=== PATIENT | female | born 1950 | race Caucasian/White ===

== ENCOUNTER 2017-10-20 10:42 | Outpatient (CLI) | payer MEDICARE ==
--- NOTE | 2017-10-22 15:44 | MMO ---
BILATERAL DIGITAL SCREENING MAMMOGRAPHY: History: 67-year-old female presents for digital screening mammography. No prior mammograms would be found so this is a baseline study. This study is interpreted with the assistance of computer aided detection. FINDINGS: Scattered areas of fibroglandular density are noted bilaterally. There are typically benign calcifica tions in both breasts. No direct or indirect evidence of malignancy. IMPRESSION: 1. BIRADS category 2 - benign findings. Continue routine screening. POS: SHEYLA
== END 2017-10-20 10:43 | disposition home or self-care (01) ==
LOC: SCSMAMMO 10:42
PROVIDERS: ATTEND Internal Medicine
DX: Z12.31 Encounter for screening mammogram for malignant neoplasm of breast (principal)
CPT/HCPCS: 77067

== ENCOUNTER 2018-08-04 18:04 | Inpatient (IN) | payer MEDICARE ==
[2018-08-04] MEDS ORDERED: Diltiazem 125 MG/25 ML ONE (19:15)
[2018-08-04 19:39] LABS: Acetaminophen Less than 6.0 mcg/mL (10.0-30.0); Alcohol Less than 10 mg/dL (Less than 10); Salicylate Less than 8.0 mg/dL (15.0-30.0)
--- NOTE | 2018-08-04 21:26 | PDOC.FPRHP ---
- History of Present Illness Chief Complaint: nausea History of Present Illness: 67yo F with pmh of HTN and "heart rate issues" presents to ED with 1 week hx of nausea and vomiting. Pt was found in [facility] ED to have proctitis and pyelonephritis by Abdominal CT and transferred to us. Pt reports that she has had hard stools and difficulty with BMs though her last ones were on Friday and Friday. She denies dysuria or polyuria. Reports associated decreased PO intake and that she has not tolerated any home medications for several days now. No upper or lower GIB, no fever/chills ED Course: Vancomycin, Rocephin, Levaquin, diltiazem - Allergies/Adverse Reactions Allergies Allergy/AdvReac Type Severity Reaction Status Date / Time No Known Allergies Allergy Unverified 08/04/18 22:45 - Home Medications Medication Instructions Recorded Confirmed Type Amlodipine [Norvasc] 10 mg PO DAILY 08/05/18 08/05/18 History Aspirin [Ecotrin] 81 mg PO DAILY 08/05/18 08/05/18 History Lisinopril [Zestril] 5 mg PO BID 08/05/18 08/05/18 History Metoprolol Succinate [Toprol XL] 100 mg PO BID 08/05/18 08/05/18 History Potassium Chloride [Klor-Con 10] 10 meq PO BID 08/05/18 08/05/18 History Sertraline HCl 50 mg PO DAILY 08/05/18 08/05/18 History - History PMHx: HTN, "heart rate issue" (takes metoprolol), depression/anxiety PSHx: none FHx: CAD in parents Social: 20 pack year smoking hx, drinks alcohol socially, denies daily use ( though ED report shows daily drinking), denies drugs - Review of Systems General: reports: fatigue. denies: fever/chills Eyes: denies: eye pain, vision changes ENT: denies: nasal congestion, rhinorrhea Respiratory: denies: congestion, shortness of breath Cardiovascular: denies: chest pain, palpitation Gastrointestinal: reports: nausea, vomiting Genitourinary: denies: incontinence, dysuria, polyuria Skin: denies: rashes, lesions Musculoskeletal: denies: pain, tenderness Neurological: denies: syncope, seizure Psychological: denies: anxiety, depression - Vital signs BP: [163/107] HR: [110] RR: [20] Tmax: [98.1] Pox: [95]% on [ra] Wt: [45kg] - Physical Exam Constitutional: NAD, awake, alert and oriented HEENT: normocephalic and atraumatic, EOMI, conjunctiva clear, grossly normal vision, grossly normal hearing Neck: supple, no JVD Chest: no-tender to palpation Heart: normal S1/S2, other (tachycardia, regular rhythm) Lungs: CTAB, no respiratory distress Abdomen: soft, non-tender, bowel sounds present Musculoskeletal: normal structure, normal tone Neurological: no focal deficit, normal sensation Skin: no rash/lesions, good turgor Heme/Lymphatic: no unusual bruising or bleeding, no purpura Psychiatric: normal mood and affect, good judgment and insight FMR H&P: Results - Labs Result Diagrams: 08/05/18 03:58 08/05/18 03:58 Lab results: Ammonia 25 umol/L (18-72) 08/04/18 19:02 FMR H&P: A/P - Problem List (1) Sepsis Current Visit: Yes Status: Acute Code(s): A41.9 - SEPSIS, UNSPECIFIED ORGANISM (2) Proctitis Current Visit: Yes Status: Acute Code(s): K62.89 - OTHER SPECIFIED DISEASES OF ANUS AND RECTUM (3) Pyelonephritis Current Visit: Yes Status: Acute Code(s): N12 - TUBULO-INTERSTITIAL NEPHRITIS, NOT SPCF ACUTE OR CHRONIC (4) SVT (supraventricular tachycardia) Current Visit: Yes Status: Acute Code(s): I47.1 - SUPRAVENTRICULAR TACHYCARDIA (5) HTN (hypertension) Current Visit: Yes Status: Acute Code(s): I10 - ESSENTIAL (PRIMARY) HYPERTENSION (6) Depressed Current Visit: Yes Status: Acute Code(s): F32.9 - MAJOR DEPRESSIVE DISORDER , SINGLE EPISODE, UNSPECIFIED - Plan Sepsis 2/2 pyelonephritis and proctitis A- CT imaging showing evidence of pyelo and proctitis with pt meeting sirs criteria though HR can be attributed for known hx of tachycardia. P- vanc and levaquin - admit tele - f/u on Cultures pending - monitor vitals for signs of decompensation. - LR maintenance fluids SVT A- pt has HR ranging from 80-130's in ED and is s/p dilt. She is currently asymptomatic with no cp or sob. Home metoprolol dose has not been tolerated for days now 2/2 vomiting P- restart home metoprolol - PRN labetalol for pulse >120 HTN A- SBPs ranging from 110s to 140s in ED. P- restarted home metoprolol, will hold other home meds as of now until BPs stabilize to reserve freedom for Labetalol use if need be. CKD4 - will renally dose medications, appears stable from previous labs. Depression/Anxiety - home sertaline hypokalemia - pt has had one time dose of 40meq - restart home K+ Possible EtOH dependence A- pt denied daily drinking but ED report documented daily drinking P- ASE protocol Diet: HH PPx: heparin SC CODE: DNI Dispo: inpatient, telemetry FMR H&P: Upper Level - Pertinent history 67 yo WF PMH SVT and HTN. Presents as transfer from [place] [facility] with a CC of constipation for 1 week and intractable nausea and vomiting for 3 days. Reports rectal pain. Denies fever, chills, dysuria, flank pain, or palpitations. States she has not taken her beta antonio for 3-4 days. ER: Labs, EKG, CT-abdomen/pelvis w/o contrast, rocephin, vanc, levaquin, NS 2L, metoprolol x2, diltiazem x1, blood and urine cultures at [facility] - Pertinent findings Vitals: Pulse 130, otherwise WNL GEN: NAD CV: tachydardic regular Pulm: CTA-B Abdomen: no CVA tenderness EKG: Sinus/supraventricular tachcyardia. P-waves difficult to appreciate but present. CT-abdomen/pelvis: air noted in bladder, right ureter, and right renal pelvis. rectal inflammation. Labs: WBC 14, lactic acid 3.1-> 1, UA 4+ bacteria, >300 protein, WBC 11-20. - Plan Date/Time: 08/04/182124 I, Bo Estes MD, have evaluated this patient and agree with findings/plan as outlined by sports broadcasting internship resident. Pertinent changes/additions are listed here. 1. Sepsis 2/2 pyelonephritis and proctitis: continue vanc and levaquin. will monitor on telemetry. I believe her pulses is related to her history of SVT and medication non-compliance this week. Cultures pending, monitor vitals for signs of decompensation. 2. SVT: restarted home metoprolol. PRN labetalol available for pulse >120 3. CKD4: renally dose medications, appears stable from previous labs. 4. See sports broadcasting internship note for management of chronic medical conditions. 5. Diet: HH 6. PPx: heparin SC 7. CODE: DNI Dispo: inpatient, telemetry, >[address] Russell. Addendum - Attending - Attending Attestation Date/Time: 08/05/18 [id number] I personally evaluated the patient and discussed the management with Dr. Prescott. I agree with the History, Examination, Assessment and Plan documented above with any addition or exceptions noted below.
[2018-08-04] MEDS ORDERED: Acetaminophen 325 MG TAB PO PRN (22:42)
[2018-08-04] MEDS ORDERED: Senokot 8.6 MG TAB PO SCH (22:42)
[2018-08-04] MEDS ORDERED: Polyethylene Glycol 3350 17 GM Packet PO PRN (22:42)
[2018-08-04 22:57] LABS: Hemoglobin A1c 4.9 % (4.0-6.0)
[2018-08-04] MEDS: Lactated Ringer's 1,000 ML IV SCH (23:35)
[2018-08-04] MEDS ORDERED: Ondansetron ODT 4 MG TAB ONE (23:36)
[2018-08-04] MEDS: Ondansetron ODT 4 MG TAB PO PRN (23:38)
[2018-08-05] MEDS: Labetalol HCl 100 MG/20 ML VIAL SLOW IVP PRN (00:46)
[2018-08-05 04:11] LABS: #Lymphocytes 1.2 thou/uL (1.20-3.40); #Monocytes 0.8 thou/uL (0.11-0.59); #Neutrophils 11.7 thou/uL (1.40-6.50); %Basophils 0.1 % (0.0-1.0); %Eosinophils 0.1 % (0.0-10.0); %Lymphocytes 8.7 % (21.0-51.0); %Monocytes 6.1 % (0.0-10.0); Mean Corpuscular Hemoglobin 35.5 pg (27.0-31.0); Mean Platelet Volume 7.7 fL (7.4-10.4); Platelet Count 155 thou/uL (130-400); RBC Distribution Width 13.4 % (11.5-14.5); Red Blood Cell (RBC) Count 3.94 mill/uL (4.20-5.40); White Blood Cell (WBC) Count 13.7 thou/uL (4.8-10.8)
[2018-08-05 04:26] LABS: Anion Gap 17 mmol/L (10-20); BUN (Urea Nitrogen) 26 mg/dL (9.8-20.1); Calc. Creatinine Clearance 20 mL/min (70-130); Calcium 8.8 mg/dL (7.8-10.44); Carbon Dioxide 17 mmol/L (23-31); Chloride 107 mmol/L (98-107); Estimated GFR-MDRD 26; Glucose 121 mg/dL (80-115); Potassium 3.4 mmol/L (3.5-5.1); Sodium 138 mmol/L (136-145)
--- NOTE | 2018-08-05 06:28 | PDOC.FM ---
- Subjective Subjective: Ms. Noel says she feels weak and not well. Denies dysuria or any pain. - Objective MAR Reviewed: Yes Vital Signs & Weight: Vital Signs (12 hours) Pulse BP 08/05/18 00:46 135 H 178/102 H Weight Weight 45.8 kg Result Diagrams: 08/05/18 03:58 08/05/18 03:58 Phys Exam - Physical Examination Respiratory: no wheezing, clear to auscultation bilateral sinus tachycardia Gastrointestinal: soft, non-tender, positive bowel sounds Musculoskeletal: no edema Neurological: non-focal Skin: normal turgor Dx/Plan (1) Sepsis Code(s): A41.9 - SEPSIS, UNSPECIFIED ORGANISM Status: Acute (2) HTN (hypertension) Code(s): I10 - ESSENTIAL (PRIMARY) HYPERTENSION Status: Acute (3) Proctitis Code(s): K62.89 - OTHER SPECIFIED DISEASES OF ANUS AND RECTUM Status: Acute (4) Pyelonephritis Code(s): N12 - TUBULO-INTERSTITIAL NEPHRITIS, NOT SPCF ACUTE OR CHRONIC Status: Acute (5) SVT (supraventricular tachycardia) Code(s): I47.1 - SUPRAVENTRICULAR TACHYCARDIA Status: Acute (6) Depressed Code(s): F32.9 - MAJOR DEPRESSIVE DISORDER, SINGLE EPISODE, UNSPECIFIED Status : Acute (7) CKD (chronic kidney disease) Code(s): N18.9 - CHRONIC KIDNEY DISEASE, UNSPECIFIED Status: Acute - Plan Plan: Sepsis 2/2 pyelonephritis and proctitis - CT imaging showing evidence of pyelo and proctitis with pt meeting sirs criteria through tachycardia and WBC. - Continue vanc and levaquin (3/) - f/u on Cultures pending from outside ED, NGTD - LR maintenance fluids @ 70 - Will consult urology today considering emphesematous cystitis and question of possible fistula SVT - tachycardia s/p dilt ED. pt was unable to tolerate home metoprolol 2/2 N/V - restart home metoprolol and then add as needed - PRN labetalol for pulse >120 HTN - SBPs currently 170s SBP - restarted home metoprolol, amlodipine, lisinopril this am CKD4 - will renally dose medications, appears stable from previous labs. Depression/Anxiety - continue home sertaline Hypokalemia - pt has had one time dose of 40meq, K+3.4 this am - restart home K+ Possible EtOH dependence - pt denied daily drinking but ED report documented daily drinking - ASE protocol Diet: HH PPx: heparin SC CODE: DNI Addendum - Attending - Attending Attestation Date/Time: 08/05/18 3490 I personally evaluated the patient and discussed the management with Dr. Pena. I agree with the History, Examination, Assessment and Plan documented above with any addition or exceptions noted below. The patient remains tachycardic but is asymtpomatic. We have restarted her metoprolol and will monitor for improvement. Urine output is low, will bolus fluids to see if this helps with the tachycardia. Cardiology is consulted. Can give prn labetolol or diltiazem as needed. Will also consult urology for possible cystoscopy. Continue IV antibiotics.
[2018-08-05] MEDS ORDERED: Aspirin Chewable 81 MG TAB ONE (09:39)
[2018-08-05] MEDS ORDERED: Heparin 1,000 UNITS/ML VIAL ONE (09:39)
[2018-08-05] MEDS ORDERED: Potassium Chloride 20 MEQ TAB ONE (09:39)
[2018-08-05] MEDS: Vancomycin HCl 500 MG in Sodium Chloride 0.9% 100 ML IVPB SCH (12:58)
[2018-08-05] MEDS: Lisinopril 5 MG TAB PO SCH ×2 (12:58→20:50)
[2018-08-05] MEDS: Amlodipine 10 MG TAB PO SCH (12:58)
[2018-08-05] MEDS: Heparin 5,000 UNITS/ML VIAL SC SCH ×3 (12:58→20:50)
[2018-08-05] MEDS: Aspirin 81 mg Enteric Coated Tablet PO SCH (12:58)
[2018-08-05] MEDS: Potassium Chloride 10 MEQ TAB PO SCH ×2 (12:59→20:51)
[2018-08-05] MEDS: Lactated Ringer's 1,000 ML IV SCH (13:47)
[2018-08-05] MEDS ORDERED: Metoprolol Tartrate 5 MG/5 ML VIAL IVP PRN (14:10)
--- NOTE | 2018-08-05 17:19 | EKG ---
Test Reason : Blood Pressure : / mmHG Vent. Rate : 100 BPM Atrial Rate : 681 BPM P-R Int : 000 ms QRS Dur : 066 ms QT Int : 314 ms P-R-T Axes : 000 021 -09 degrees QTc Int : 405 ms Supraventricular tachycardia and N Septal infarct , age undetermined cannot be excluded Abnormal ECG Confirmed by JERRI ARMSTRONG ([id number]) on 08/05/2018 5:18:24 PM Referred By: ANTONIETA Confirmed By:JERRI ARMSTRONG
--- NOTE | 2018-08-05 17:20 | EKG ---
Test Reason : Blood Pressure : / mmHG Vent. Rate : 143 BPM Atrial Rate : 170 BPM P-R Int : 000 ms QRS Dur : 064 ms QT Int : 294 ms P-R-T Axes : 000 034 -63 degrees QTc Int : 453 ms Supraventricular tachycardia Septal infarct , age undetermined Abnormal ECG Confirmed by JERRI ARMSTRONG ([id number]) on 08/05/2018 5:19:58 PM Referred By: ANTONIETA Confirmed By:JERRI ARMSTRONG
--- NOTE | 2018-08-05 18:19 | CON ---
DATE OF CONSULTATION: 08/05/2018 CONSULTING PHYSICIAN: Family Medicine. ROOM ATTENDANTS: Dr. Langston. 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 CHIEF COMPLAINT: I got really sick. HISTORY OF PRESENT ILLNESS: Ms. Noel is a 67-year-old white female, who was admitted to the Family Medicine service with a 1-week history of nausea, vomiting, and generalized feelings of malaise. She states the symptoms started about last Friday and initially she just felt bad and had some nausea. She thought that she may have a virus and stayed at home trying to take care of the problem herself. When the symptoms progressed and she became ill with vomiting and worsening feelings of malaise, she went to [facility], where she underwent imaging with abdominal CT and was found to have proctitis and emphysematous pyelitis. She was then transferred to [facility] for further treatment. She does report that she has been having hard stools and difficulty with bowel movements over the last weekend. She denies any dysuria, urgency, frequency, bladder pain, or history of recurrent urinary tract infections. She does have some incontinence and oftentimes wears Depends, especially at night, but reports no significant difficulty with urination. ALLERGIES: NONE. HOME MEDICATIONS: 1. Norvasc. 2. Aspirin. 3. Lisinopril. 4. Metoprolol. 5. Potassium chloride. 6. Sertraline. PAST MEDICAL HISTORY: 1. Hypertension. 2. Arrhythmias, unspecified. 3. Depression and anxiety. PAST SURGICAL HISTORY: None. FAMILY HISTORY: Significant for coronary artery disease in both of her parents. SOCIAL HISTORY: The patient has a 20 pack-year history of smoking. Drinks alcohol socially. Denies any illicit drug use. REVIEW OF SYSTEMS: A 12-point review of system was reviewed and otherwise negative other than what was reported in the HPI. PHYSICAL EXAMINATION: VITAL SIGNS: Temperature 97.2, pulse 141, respirations 17, blood pressure 156/85, and saturation 95% on room air. GENERAL: No apparent distress. Communicative and alert, appears older than stated age. Well nourished, well developed, relatively thin. HEENT: Normocephalic and atraumatic. Sclera are nonicteric. The patient is currently wearing sunglasses. Eyes otherwise normal. Moist mucous membranes. Trachea midline. CARDIOVASCULAR: Tachycardic with irregular rhythm. Normal S1 and S2. Symmetric pulses. CHEST: No increased work of breathing. Symmetric expansion of the lungs with some coarse upper airway sounds. Nonlabored breathing. ABDOMEN: Soft, nontender, and nondistended. Positive bowel sounds. No significant suprapubic tenderness although she does grimace slightly. No significant CVA tenderness. : Deferred at this time. EXTREMITIES: No clubbing, cyanosis, or edema. MUSCULOSKELETAL: No joint deformities or joint erythema noted. Full range of motion. NEUROLOGIC: Cranial nerves 2 through 12 grossly intact. No focal sensory or motor deficits identified. SKIN: Warm and dry. No rashes or lesions. Poor turgor. No significant pallor. PSYCHIATRIC: Alert and oriented x3. Appropriate mood and affect. LABORATORY DATA: On laboratory evaluation, the full set of labs in the [facility] system, which I have reviewed. Of note, the patient's white count is 13.7 with hemoglobin of 14, creatinine is currently 1.91. Urinalysis demonstrates 4+ bacteria, no squamous cells, 11 to 20 white cells, no red cells, trace leukocyte esterase. Urine culture preliminary is growing Escherichia coli and Klebsiella and enterobacter species. Final speciation and sensitivities are still pending. Blood cultures have no growth currently. CT scan from August 04 at [facility] demonstrates a large volume of gas in the urinary bladder as well as throughout the right renal collecting system and right ureter suggesting right-sided emphysematous pyelitis and cystitis without evidence of emphysematous pyelonephritis. There is no obvious fistula seen between the urinary bladder and the colon or vagina. There is a prior CT demonstrating gas in the bladder, but no gas in the collecting system. There is extensive new inflammatory changes around the rectum, which were not present on the prior CT scan suggestive of active proctitis. ASSESSMENT AND PLAN: A 67-year-old white female with emphysematous pyelitis and cystitis without evidence of emphysematous pyelonephritis and there is no evidence of hydronephrosis on imaging. There is no evidence of nephrolithiasis either. Given the absence of hydronephrosis and nontoxic appearance of the patient, I think the patient could be managed conservatively with IV antibiotics, but I would recommend maximal bladder drainage with a Rodriguez catheter. We will keep the Rodriguez catheter in place for at least 48 hours at which time we can repeat a CT scan. If there is significant clearance of gas at that time, the catheter can be removed. Otherwise, we will continue the Rodriguez catheter longer until she does have complete resolution of her infection. The exact etiology of this infection is probably due to recent constipation, which is a significant risk factor for urinary tract infections. The patient also has an arrhythmia currently, which has been exacerbated by her infection. This will be dealt separately by the Cardiology service at a separate time. I will continue to follow along with this patient but recommend broad-spectrum IV antibiotics until the patient has a final speciation at which time, we can taper antibiotics down more appropriately. She will probably require at least 14 days of antibiotics to completely eradicate the infection and prevent progression to worsened urinary infection. Summary. RECOMMENDATIONS: 1. Broad-spectrum IV antibiotics. 2. Rodriguez catheter drainage. 3. Repeat CT scan in 48 hours to evaluate for progression of infection or gas. 4. We will continue to follow and give recommendations. Job ID: [id number]
[2018-08-05] MEDS: Piperacillin/Tazobactam 2.25 GM in Sodium Chloride 0.9% 100 ML IVPB SCH (18:38)
[2018-08-05 19:22] LABS: ALT (SGPT) 7 U/L (8-55); AST (SGOT) 22 U/L (5-34); Albumin 3.1 g/dL (3.4-4.8); Alkaline Phosphatase 90 U/L (40-150); Bilirubin, Direct 0.3 mg/dL (0.1-0.3); Bilirubin, Total 0.7 mg/dL (0.2-1.2); Magnesium 1.1 mg/dL (1.6-2.6); Protein, Total 6.4 g/dL (6.0-8.3)
--- NOTE | 2018-08-05 19:28 | CON ---
DATE OF CONSULTATION: 08/05/2018 REASON FOR CONSULTATION: SVT. HISTORY OF PRESENT ILLNESS: Ms. Noel is a very pleasant 67-year-old white female, who comes to the hospital for nausea and vomiting. She was seen in the ED for this and was found to be in SVT. Further workup showed that she had pyelonephritis and possible proctitis. It was thought that she was septic, so she was admitted to the hospital for this, started on IV antibiotics. Nephrology was consulted for this emphysematous pyelitis with complicated urinary tract infection. She has remained in SVT, heart rate in the 130s, so Cardiology has been consulted for this. Currently, she denies any chest pain, tightness, or pressure. She does feel mildly short winded, but nothing she is concerned about. PAST MEDICAL HISTORY: 1. Hypertension. 2. She has had arrhythmias in the past. 3. Anxiety and depression. PAST SURGICAL HISTORY: None. FAMILY HISTORY: Early coronary artery disease in both parents. SOCIAL HISTORY: Twenty pack year smoking history. Drinks alcohol socially. No drug use. OUTPATIENT MEDICATIONS: Include; 1. Amlodipine 10 mg a day. 2. Aspirin 81 a day. 3. Lisinopril 5 mg b.i.d. 4. Metoprolol 100 mg a b.i.d. 5. Klor-Con 10 mEq b.i.d. 6. Sertraline. REVIEW OF SYSTEMS: A 12-point review of systems was done and was found to be negative unless stated in the history of present illness. PHYSICAL EXAMINATION: VITAL SIGNS: Temperature 97.2, pulse 141, respiratory rate 17, saturating 95% on room air, and blood pressure 156/85. GENERAL: Awake, alert, and oriented x3. No distress. HEENT: Normocephalic and atraumatic. Her left eye is closed. NECK: Supple. LUNGS: Clear. CARDIOVASCULAR: Tachycardic in the 150s. ABDOMEN: Soft. EXTREMITIES: No edema. SKIN: Warm and dry. LABORATORY DATA: Laboratory work was reviewed. White count of 13, hemoglobin of 14, hematocrit 42, platelet count of 155. Chemistry was remarkable. BUN of 26, creatinine 1.91, which is better than on admission at 2.21. Potassium was 3.4. EKG was reviewed, sinus rhythm, and then she goes into SVT. This is unclear whether it is AVNRT versus case of 2:1 flutter. ASSESSMENT AND PLAN: 1. Supraventricular tachycardia. 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 She has been tachycardic in the 140s since admission. We will try to bring it down with an amiodarone drip. 2. We will call Electrophysiology. She may need an ablation probably not at this time as she had this severe infection. This needs to be better before undergoing any procedures. 3. Hypokalemia. We will plan replacing potassium up to hopefully above 4. 4. Continue therapies for her sepsis and her complicated urinary tract infection. 5. We will follow. Job ID: [id number]
[2018-08-05] MEDS: Amiodarone 450 MG in Dextrose 5% in Water 250 ML IVPB SCH (20:31)
[2018-08-05] MEDS ORDERED: Levofloxacin 250 mg/D5W 500 MG in Premix Bag 1 BAG IVPB SCH (21:00)
[2018-08-06] MEDS: Piperacillin/Tazobactam 2.25 GM in Sodium Chloride 0.9% 100 ML IVPB SCH ×5 (00:07→22:41)
[2018-08-06 03:47] LABS: Vancomycin, Random 7.6 ug/mL (See Comment)
[2018-08-06] MEDS: Labetalol HCl 100 MG/20 ML VIAL SLOW IVP PRN (04:05)
[2018-08-06] MEDS: Amiodarone 450 MG in Dextrose 5% in Water 250 ML IVPB SCH (04:14)
[2018-08-06] MEDS ORDERED: Vancomycin HCl 500 MG in Sodium Chloride 0.9% 100 ML IVPB SCH (05:00)
[2018-08-06] MEDS: Vancomycin HCl 500 MG in Sodium Chloride 0.9% 100 ML IVPB SCH (05:04)
--- NOTE | 2018-08-06 06:07 | PDOC.FM ---
- Subjective Subjective: Ms. Noel reports she is feeling a bit better today. She denies fever/chills. Just wishes she had more of an appetite and could get her strength back. - Objective MAR Reviewed: Yes Vital Signs & Weight: Vital Signs (12 hours) Temp Pulse Resp BP BP Pulse Ox 08/06/18 04:00 98.1 F 68 16 166/88 H 94 L 08/06/18 00:00 130 H 16 163/85 H 95 08/05/18 20:50 140 H 146/89 H 08/05/18 20:00 98.2 F 140 H 20 133/83 94 L Weight Weight 47.259 kg I&O: 08/04/18 08/05/18 08/06/18 06:59 06:59 06:59 Intake Total 660 Balance 660 Result Diagrams: 08/06/18 08:15 08/06/18 08:15 Phys Exam - Physical Examination Respiratory: no wheezing, clear to auscultation bilateral Cardiovascular: no significant murmur sinus tachycardia Gastrointestinal: soft, no distention, positive bowel sounds Musculoskeletal: no edema Neurological: non-focal Skin: normal turgor Dx/Plan (1) Sepsis Code(s): A41.9 - SEPSIS, UNSPECIFIED ORGANISM Status: Acute (2) HTN (hypertension) Code(s): I10 - ESSENTIAL (PRIMARY) HYPERTENSION Status: Acute (3) Proctitis Code(s): K62.89 - OTHER SPECIFIED DISEASES OF ANUS AND RECTUM Status: Acute (4) SVT (supraventricular tachycardia) Code(s): I47.1 - SUPRAVENTRICULAR TACHYCARDIA Status: Acute (5) Depressed Code(s): F32.9 - MAJOR DEPRESSIVE DISORDER, SINGLE EPISODE, UNSPECIFIED Status : Acute (6) CKD (chronic kidney disease) Code(s): N18.9 - CHRONIC KIDNEY DISEASE, UNSPECIFIED Status: Acute (7) Cystitis Code(s): N30.90 - CYSTITIS, UNSPECIFIED WITHOUT HEMATURIA Status: Acute (8) Pyelitis Code(s): N12 - TUBULO-INTERSTITIAL NEPHRITIS, NOT SPCF ACUTE OR CHRONIC Status: Acute - Plan Plan: Sepsis 2/2 pyelitis/cystitis/proctitis - CT imaging showing evidence of this as well as proctitis with pt meeting sirs criteria through tachycardia and WBC. - Continue vanc 3/5 and zosyn 3/6 (patient previously on levaquin) - f/u on Cultures pending from outside ED, Bcx NGTD, Ucx prelim shows e coli and kleb/enterobacter - LR maintenance fluids @ 70 - Urology consulted- recommended del rosario, antibiotics for 14 days duration, plan for repeat CT on Friday SVT - tachycardia s/p dilt ED. pt was unable to tolerate home metoprolol 2/2 N/V - continue home metoprolol - HR did improve to 60 for at time but was in 130s on exam this am - Cardiology consulted-started on amiodarone drip. Plan to consult EP for possible ablation at future date HTN - SBPs currently 160s SBP - continue home metoprolol, amlodipine, lisinopril CKD4 - will renally dose medications, appears stable from previous labs. Depression/Anxiety - continue home sertaline Hypokalemia - pt has had one time dose of 40meq in ED, now continued on home 20meq daily - goal >4 - am labs pending Hypomagnesemia - am recheck pending Possible EtOH dependence - pt denied daily drinking but ED report documented daily drinking - ASE protocol Diet: HH PPx: heparin SC CODE: DNI Addendum - Attending - Attending Attestation Date/Time: 08/06/18 1830 I personally evaluated the patient and discussed the management with Dr. Pena. I agree with the History, Examination, Assessment and Plan documented above with any addition or exceptions noted below. The patient remains on antibiotics. Awaiting cultures. Del Rosario in place. will repeat CT tomorrow. Pt is on amiodarone drip for the tachycardia.
[2018-08-06] MEDS: Lactated Ringer's 1,000 ML IV SCH ×2 (06:23→22:45)
[2018-08-06 08:43] LABS: #Basophils 0.1 thou/uL (0.0-0.2); #Eosinphils 0.1 thou/uL (0.0-0.7); #Lymphocytes 1.4 thou/uL (1.20-3.40); #Monocytes 0.8 thou/uL (0.11-0.59); #Neutrophils 8.2 thou/uL (1.40-6.50); %Basophils 0.5 % (0.0-1.0); %Eosinophils 0.6 % (0.0-10.0); %Lymphocytes 13.2 % (21.0-51.0); %Monocytes 7.6 % (0.0-10.0); %Neutrophils 78.1 % (42.0-75.0); Hemoglobin 13.3 g/dL (12.0-16.0); Mean Corpuscular Hemoglobin 34.9 pg (27.0-31.0); Mean Platelet Volume 7.8 fL (7.4-10.4); Platelet Count 166 thou/uL (130-400); RBC Distribution Width 13.3 % (11.5-14.5); Red Blood Cell (RBC) Count 3.83 mill/uL (4.20-5.40); White Blood Cell (WBC) Count 10.6 thou/uL (4.8-10.8)
[2018-08-06 09:04] LABS: Phosphorus 2.7 mg/dL (2.3-4.7)
[2018-08-06 09:07] LABS: Anion Gap 14 mmol/L (10-20); BUN (Urea Nitrogen) 21 mg/dL (9.8-20.1); Calc. Creatinine Clearance 20 mL/min (70-130); Calcium 8.8 mg/dL (7.8-10.44); Carbon Dioxide 18 mmol/L (23-31); Chloride 106 mmol/L (98-107); Estimated GFR-MDRD 25; Glucose 106 mg/dL (80-115); Potassium 3.4 mmol/L (3.5-5.1); Sodium 135 mmol/L (136-145)
[2018-08-06] MEDS: Amlodipine 10 MG TAB PO SCH (09:39)
[2018-08-06] MEDS: Aspirin 81 mg Enteric Coated Tablet PO SCH (09:39)
[2018-08-06] MEDS: Lisinopril 5 MG TAB PO SCH ×2 (09:39→22:42)
[2018-08-06] MEDS: Potassium Chloride 10 MEQ TAB PO SCH ×2 (09:39→22:42)
[2018-08-06] MEDS: Heparin 5,000 UNITS/ML VIAL SC SCH ×3 (09:40→22:39)
[2018-08-06] MEDS: Ondansetron ODT 4 MG TAB PO PRN (09:43)
[2018-08-06] MEDS ORDERED: Magnesium 2 GM/50 ML 2 GM in Premix Bag 1 BAG IVPB SCH (11:15)
[2018-08-06] MEDS ORDERED: Potassium Chloride 20 MEQ TAB PO SCH (12:00)
--- NOTE | 2018-08-06 12:23 | PDOC.CTH ---
Cardiology Progress Note - Subjective No new issues. No chest pain, syncope, presyncope. - Objective Vital Signs Temp Pulse Resp BP Pulse Ox 08/06/18 09:39 68 08/06/18 08:00 98.0 F 159 H 17 156/82 H 94 L 08/06/18 04:00 98.1 F 68 16 166/88 H 94 L Weight 104 lb 3 oz 08/05/18 08/06/18 08/07/18 06:59 06:59 06:59 Intake Total 2410 Output Total 1100 Balance 1310 - Physical Examination General/Neuro: alert & oriented x3, NAD Neck: no JVD present Lungs: CTA, unlabored respirations Heart: other: (Irreg) Abdomen: NT/ND Extremities: other: (no edema) - Telemetry Telemetry Rhythm: Afib HR 90-110 - Labs Result Diagrams: 08/06/18 08:15 08/06/18 08:15 Troponin/CKMB Troponin I 0.013 ng/mL (< 0.028) 08/04/18 19:02 - Assessment/Plan 1. SVT 2. Now in Afib RVR. 3. Emphysematous nephritis 4. Complicated UTI. 5. Acute on chronic CKD. PLAN: - Continue amiodarone drip. - Will ask EP to see patient. - May have been 2-1 Aflutter yesterday versus SVT. - Mavis Cuello
--- NOTE | 2018-08-06 16:43 | PRG ---
DATE OF SERVICE: 08/06/2018 SUBJECTIVE: The patient states that she is feeling okay. She has developed diarrhea in the interval and is continuing to feel nauseated, although she has not vomited. Overall, she states that she feels better than when she first came into the hospital. OBJECTIVE: VITAL SIGNS: Temperature 98.2, pulse 122, respirations 18, blood pressure 169/76, saturation 95% on room air. GENERAL: No apparent distress. Still wearing glasses, likely secondary to cosmetic issue on her left eye. CARDIOVASCULAR: Tachycardia with a regular rhythm. Normal S1, S2. ABDOMEN: Soft, nontender, and nondistended. Positive bowel sounds. : Rodriguez catheter in place draining clear yellow urine. EXTREMITIES: No clubbing, cyanosis, or edema. LABORATORY EVALUATION: The full set of labs in the [facility] system which I have reviewed. Of note, the patient's white count is decreased down to 10.6 and creatinine is at 2.0. ASSESSMENT AND PLAN: A 67-year-old white female with emphysematous pyelitis and cystitis, with clinical improvement on antibiotics and urinary catheter drainage alone. She is already planned for a CT scan tomorrow. I will look at the results and based on the level of improvement, we will decide whether or not she needs to keep her urinary catheter or not. Final urine culture demonstrates E coli and Klebsiella, which is sensitive to levofloxacin on both bacteria. She previously was on Levaquin, but I would transition her to Zosyn for further anaerobic coverage. It would be permissible for her to go back onto Levaquin orally when she is ready for discharge, which I would not do at this time until she has had her CT scan. Additionally, the patient does have this proctitis and diarrhea issue and may need further anaerobic coverage, which Levaquin may not provide. It may be considered reasonable to consider Flagyl as well, although I will leave this to the discretion of the Family Medicine Service. From my standpoint, if the Family Medicine Service is okay with potential proctitis coverage with Levaquin alone, she can be transitioned when appropriate. Otherwise, I will leave the Zosyn on for now. She probably does not need vancomycin and this can probably be discontinued. I will make further recommendations after her CT tomorrow. Job ID: [id number]
[2018-08-07 05:14] LABS: #Basophils 0.1 thou/uL (0.0-0.2); #Eosinphils 0.1 thou/uL (0.0-0.7); #Lymphocytes 1.5 thou/uL (1.20-3.40); #Monocytes 0.7 thou/uL (0.11-0.59); #Neutrophils 7.5 thou/uL (1.40-6.50); %Basophils 0.8 % (0.0-1.0); %Eosinophils 1.1 % (0.0-10.0); %Lymphocytes 14.9 % (21.0-51.0); %Monocytes 7.2 % (0.0-10.0); %Neutrophils 75.9 % (42.0-75.0); Hemoglobin 13.7 g/dL (12.0-16.0); Mean Corpuscular HGB CONC 33.6 g/dL (32.0-36.0); Mean Corpuscular Hemoglobin 36.1 pg (27.0-31.0); Mean Platelet Volume 7.9 fL (7.4-10.4); Platelet Count 159 thou/uL (130-400); RBC Distribution Width 13.2 % (11.5-14.5); White Blood Cell (WBC) Count 9.9 thou/uL (4.8-10.8)
[2018-08-07 05:37] LABS: Anion Gap 16 mmol/L (10-20); BUN (Urea Nitrogen) 18 mg/dL (9.8-20.1); Calc. Creatinine Clearance 19 mL/min (70-130); Calcium 9.1 mg/dL (7.8-10.44); Carbon Dioxide 18 mmol/L (23-31); Chloride 103 mmol/L (98-107); Estimated GFR-MDRD 23; Glucose 99 mg/dL (80-115); Magnesium 1.5 mg/dL (1.6-2.6); Potassium 3.9 mmol/L (3.5-5.1); Sodium 133 mmol/L (136-145)
[2018-08-07] MEDS: Piperacillin/Tazobactam 2.25 GM in Sodium Chloride 0.9% 100 ML IVPB SCH (05:47)
--- NOTE | 2018-08-07 06:16 | PDOC.FM ---
- Subjective Subjective: Ms. Noel reports feeling better this morning. Reports some loose nonbloody stool but no diarrhea. Has no other complaints. - Objective Vital Signs & Weight: Vital Signs (12 hours) Temp Pulse Resp BP BP Pulse Ox 08/07/18 03:07 97.9 F 58 L 16 175/83 H 95 08/06/18 22:42 117 H 158/83 H 08/06/18 19:41 96.8 F L 117 H 16 158/83 H 158/83 H 96 Weight Admit Weight 47.259 kg Weight 47.259 kg I&O: 08/05/18 08/06/18 08/07/18 06:59 06:59 06:59 Intake Total 2410 1427 Output Total 1100 900 Balance 1310 527 Result Diagrams: 08/07/18 04:34 08/07/18 04:34 Phys Exam - Physical Examination Constitutional: NAD Respiratory: no wheezing, clear to auscultation bilateral Cardiovascular: RRR, no significant murmur Gastrointestinal: soft, non-tender, positive bowel sounds Musculoskeletal: no edema Neurological: non-focal Psychiatric: normal affect Skin: normal turgor Dx/Plan (1) Sepsis Code(s): A41.9 - SEPSIS, UNSPECIFIED ORGANISM Status: Acute (2) HTN (hypertension) Code(s): I10 - ESSENTIAL (PRIMARY) HYPERTENSION Status: Acute (3) Proctitis Code(s): K62.89 - OTHER SPECIFIED DISEASES OF ANUS AND RECTUM Status: Acute (4) SVT (supraventricular tachycardia) Code(s): I47.1 - SUPRAVENTRICULAR TACHYCARDIA Status: Acute (5) Depressed Code(s): F32.9 - MAJOR DEPRESSIVE DISORDER, SINGLE EPISODE, UNSPECIFIED Status : Acute (6) CKD (chronic kidney disease) Code(s): N18.9 - CHRONIC KIDNEY DISEASE, UNSPECIFIED Status: Acute (7) Cystitis Code(s): N30.90 - CYSTITIS, UNSPECIFIED WITHOUT HEMATURIA Status: Acute (8) Pyelitis Code(s): N12 - TUBULO-INTERSTITIAL NEPHRITIS, NOT SPCF ACUTE OR CHRONIC Status: Acute - Plan Plan: Sepsis 2/2 pyelitis/cystitis/proctitis - CT imaging showing evidence of this as well as proctitis with pt meeting sirs criteria through tachycardia and WBC. - D/c zosyn and switch to levaquin. Will not start flagyl - Ucx shows e coli and klebsiella, sensitive to levaquin. - LR maintenance fluids @ 70 - Urology consulted- recommended del rosario, antibiotics for 14 days duration, plan for repeat CT today. Await for recommendations after this. SVT, a fib w/ RVR - on home metoprolol, amlodipine. On amiodarone drip with prn BB - HR had been in 110s but was 58 this am - Cardiology consulted-appreciate recommendations and EP consult HTN - SBPs currently 170s SBP - continue home metoprolol, amlodipine. Will increase lisinopril today. CKD4 - will renally dose medications, appears stable from previous labs. - Cr slowly trending up 1.9 on admission->2.1 Depression/Anxiety - continue home sertaline Hypokalemia - s/p extra 40meq yesterday in addition to home 20meq daily. 3.9 this am. - goal >4 Hypomagnesemia - 1.1->1.5, will give 1g today and recheck in am Possible EtOH dependence - pt denied daily drinking but ED report documented daily drinking - ASE protocol Diet: HH PPx: heparin SC CODE: DNI Addendum - Attending - Attending Attestation Date/Time: 08/07/18 1630 I personally evaluated the patient and discussed the management with Dr. Pena. I agree with the History, Examination, Assessment and Plan documented above with any addition or exceptions noted below. Patient feels a little better today. CT has been done and read is pending. Will f/u with urology recs. She remains on amiodarone drip however she has converted to a sinus rhythm. DEB is mildly increased. Will continue to trend.
[2018-08-07] MEDS: Amlodipine 10 MG TAB PO SCH (08:27)
[2018-08-07] MEDS: Potassium Chloride 10 MEQ TAB PO SCH ×2 (08:27→21:21)
[2018-08-07] MEDS: Lisinopril 5 MG TAB PO SCH (08:27)
[2018-08-07] MEDS: Aspirin 81 mg Enteric Coated Tablet PO SCH (08:27)
[2018-08-07] MEDS: Heparin 5,000 UNITS/ML VIAL SC SCH ×3 (08:28→21:21)
[2018-08-07] MEDS ORDERED: Lisinopril 5 MG TAB PO SCH ×2 (10:56→11:45)
[2018-08-07 11:32] LABS: HIV (1/2) Antibody/Antigen Non-Reactive (NonReactive); HIV 1/2 INDEX 0.11 S/CO (<1.00)
[2018-08-07] MEDS: Lactated Ringer's 1,000 ML IV SCH (11:55)
--- NOTE | 2018-08-07 12:01 | PRG ---
DATE OF SERVICE: 08/07/2018 SUBJECTIVE: The patient states she is feeling fine. She has no significant pain or ill feeling. She is still a little nauseated. OBJECTIVE: VITAL SIGNS: Temperature 97.3, pulse 57, respirations 17, blood pressure 169/81, and saturation 95% on room air. GENERAL: No apparent distress. CARDIOVASCULAR: Bradycardia with slightly irregular rhythm. ABDOMEN: Soft, nontender, and nondistended. Positive bowel sounds. : Rodriguez catheter in place with clear yellow urine. EXTREMITIES: No clubbing, cyanosis, or edema. LABORATORY DATA: On laboratory evaluation, the full set of labs in the [facility] system which I have reviewed. Of note, the patient's white count is 9.9 with a hemoglobin of 13.7. Creatinine is 2.10. Final urine culture demonstrates E. coli and Klebsiella sensitive to Cipro and Levaquin for both bacteria. CT from this morning demonstrates significant bilateral perinephric stranding without any evidence of gas within the collecting system or parenchyma. All the gas within the bladder has also disappeared. ASSESSMENT AND PLAN: A 67-year-old white female with radiographic clinical and laboratory improvement on antibiotic therapy. At this point, I think her catheter can be removed, but she should continue on antibiotics for a minimum of 14 days for pyelonephritis. She can be transitioned to levofloxacin when appropriate by the primary team. From my standpoint, she does not need a scheduled followup with me unless she has worsening urinary symptoms or infective symptoms or she has a problem with recurrent urinary tract infections, which she denies. So long she clinically improves and has resolution of her infection, she can follow up with her primary care doctor and see me on a p.r.n. basis. Job ID: [id number]
--- NOTE | 2018-08-07 12:26 | CT ---
CT ABDOMEN AND PELVIS WITHOUT CONTRAST: 08/07/2018 HISTORY: Emphysematous pyelitis. Interval assessment after treatment. Bladder and kidney infection for four days. COMPARISON: 08/04/2018 FINDINGS: There has been interval development of small bilateral pleural effusions with associated passive atel ectasis. There is atelectasis also present in the lingula. Calcifications and a mitral valve annulus are noted with vascular calcifications again seen in the ab dominal aorta and iliac arteries. The previously noted gas within the right renal collecting system and ureter, as well as in the urina ry bladder, is no longer visualized. No gas is seen within the left renal collecting system or urete r. A Rodriguez catheter is present in the urinary bladder and is mostly decompressed. Small amount of ga s is seen within the vagina. There is persistent bilateral perinephric stranding, which is a symmetric finding. A small, exophyti c, 8 mm, increased density lesion, superior pole, right kidney, is again present. There is a stable low density lesion within the mid portion of the left kidney, again measuring approximately 1.2 cm. The liver, spleen, pancreas, and bilateral adrenal glands demonstrate a grossly normal nonenhanced CT appearance. The rectum is more distended on this examination, with a small amount of contrast seen in the rectum. The thickening of the villa of the colon in this region appear improved, which could be related to improvement in distention, as well as improvement in proctitis. However, there is persistent presacr al edema and fluid present with persistent thickening of the rectum. Colonic diverticulosis is again seen within the descending and involving the sigmoid colon, as well as in the ascending colon. Loops of small bowel are normal in caliber. There has been no other interval change from prior study. IMPRESSION: 1. Persistent thickening involving the villa of the rectum. The thickening does appear improved, an d this may be related to a combination of better distention and improvement in proctitis. However, t here is a greater amount of fluid and inflammatory change in a presacral location and adjacent to the rectum. No focus of extraluminal gas is seen, and no bowel wall gas is present. 2. Resolution of gas within the right renal collecting system and ureter, as well as in the urinary bladder. A Rodriguez catheter is present in the urinary bladder, which is mostly decompressed on today's examination. 3. No evidence of hydronephrosis. 4. Persistent bilateral perinephric stranding. 5. Increased density lesion, superior pole, right kidney, stable from prior studies, which may poten tially represent a Bosniak type II renal cystic lesion, but cannot be further characterized. There i s also a stable hypodense lesion in the mid portion of the left kidney. 6. Interval development of small bilateral pleural effusions and atelectasis. POS: SHEYLA
[2018-08-07] MEDS: Amiodarone 200 MG TAB PO SCH (21:21)
[2018-08-07] MEDS: Lisinopril 10 MG TAB PO SCH (21:22)
[2018-08-08] MEDS: Lactated Ringer's 1,000 ML IV SCH ×3 (04:18→19:50)
--- NOTE | 2018-08-08 06:10 | PDOC.FM ---
- Subjective Subjective: Ms. Noel has no complaints this morning. Says she is feeling much better and is ready to go back home. - Objective Vital Signs & Weight: Vital Signs (12 hours) Temp Pulse Resp BP BP Pulse Ox 08/08/18 03:25 98.4 F 53 L 16 143/73 H 92 L 08/07/18 21:22 123/59 L 08/07/18 19:47 123/59 L 08/07/18 19:00 97.4 F L 60 16 123/59 L 95 Weight Admit Weight 47.259 kg Weight 47.259 kg I&O: 08/06/18 08/07/18 08/08/18 06:59 06:59 06:59 Intake Total 2410 1427 1296 Output Total 1100 900 500 Balance 1310 527 796 Result Diagrams: 08/07/18 04:34 08/07/18 04:34 Phys Exam - Physical Examination Constitutional: NAD Respiratory: no wheezing, clear to auscultation bilateral Cardiovascular: RRR, no significant murmur Gastrointestinal: soft, non-tender, positive bowel sounds Musculoskeletal: no edema Neurological: non-focal Psychiatric: normal affect Dx/Plan (1) Sepsis Code(s): A41.9 - SEPSIS, UNSPECIFIED ORGANISM Status: Acute (2) HTN (hypertension) Code(s): I10 - ESSENTIAL (PRIMARY) HYPERTENSION Status: Acute (3) Proctitis Code(s): K62.89 - OTHER SPECIFIED DISEASES OF ANUS AND RECTUM Status: Acute (4) SVT (supraventricular tachycardia) Code(s): I47.1 - SUPRAVENTRICULAR TACHYCARDIA Status: Acute (5) Depressed Code(s): F32.9 - MAJOR DEPRESSIVE DISORDER, SINGLE EPISODE, UNSPECIFIED Status : Acute (6) CKD (chronic kidney disease) Code(s): N18.9 - CHRONIC KIDNEY DISEASE, UNSPECIFIED Status: Acute (7) Cystitis Code(s): N30.90 - CYSTITIS, UNSPECIFIED WITHOUT HEMATURIA Status: Acute (8) Pyelitis Code(s): N12 - TUBULO-INTERSTITIAL NEPHRITIS, NOT SPCF ACUTE OR CHRONIC Status: Acute - Plan Plan: Sepsis 2/2 pyelitis/cystitis/proctitis, improving - CT imaging showing evidence of this as well as proctitis with pt meeting sirs criteria through tachycardia and WBC. - D/c zosyn and switch to levaquin. Plan to continue to complete 14 day course. Will add flagyl today. - has yellow diarrhea, stool studies all negative. anca pending. - Ucx shows e coli and klebsiella, sensitive to levaquin. - Urology consulted- CT improved, d/c del rosario and may follow up with PCP SVT, a fib w/ RVR - Off amio drip and now on PO amio. - HR in 50s-60s overnight but then back in a flutter @ 0500 this am - Cardiology consulted-appreciate recommendations and possible EP consult HTN - SBPs currently 120-150s SBP - continue lisinopril, amlodipine. Metoprolol stopped by cardiology. CKD4 - will renally dose medications, appears stable from previous labs. - Cr slowly trending up since admission Depression/Anxiety - continue home sertaline Hypokalemia, improving - 3.9 on last check - goal >4 Hypomagnesemia - 1.1->1.5, will give 1g today and recheck in am Possible EtOH dependence - pt denied daily drinking but ED report documented daily drinking - ASE protocol Diet: HH PPx: heparin SC CODE: DNI
[2018-08-08] MEDS: Amlodipine 10 MG TAB PO SCH (09:48)
[2018-08-08] MEDS: Aspirin 81 mg Enteric Coated Tablet PO SCH (09:48)
[2018-08-08] MEDS: Amiodarone 200 MG TAB PO SCH ×2 (09:48→21:21)
[2018-08-08] MEDS: Potassium Chloride 10 MEQ TAB PO SCH ×2 (09:49→21:22)
[2018-08-08] MEDS: Lisinopril 10 MG TAB PO SCH ×2 (09:49→21:22)
[2018-08-08] MEDS: Heparin 5,000 UNITS/ML VIAL SC SCH ×3 (09:50→21:21)
--- NOTE | 2018-08-08 11:48 | PDOC.CTH ---
Cardiology Progress Note - Subjective Patient resting. No complaints. Back in AFlutter. Rate 100-110bpm. - Objective Vital Signs Temp Pulse Resp BP BP Pulse Ox 08/08/18 09:49 149/72 H 08/08/18 09:48 99 149/72 H 08/08/18 03:25 98.4 F 53 L 16 143/73 H 92 L Admit Weight 104 lb 3 oz Weight 104 lb 3 oz 08/07/18 08/08/18 08/09/18 06:59 06:59 07:59 Intake Total 1427 1296 Output Total 900 500 Balance 527 796 - Physical Examination General/Neuro: alert & oriented x3 Neck: no JVD present Lungs: CTA Heart: other: (Regular, tachy) Abdomen: NT/ND - Telemetry Telemetry Rhythm: AFl - Labs Result Diagrams: 08/07/18 04:34 08/07/18 04:34 Troponin/CKMB Troponin I 0.013 ng/mL (< 0.028) 08/04/18 19:02 - Assessment/Plan 1. Recurrent AFlutter 2. Paroxysmal AF 3. UTI 4. CKD-4 Continue Amio. Will consult EP. Continue Heparin. Pt seen and examined. Agree with EP consult.
[2018-08-08] MEDS: metroNIDAZOLE 500 MG TAB PO SCH ×2 (15:47→21:22)
[2018-08-09] MEDS: Lactated Ringer's 1,000 ML IV SCH ×2 (00:33→06:21)
--- NOTE | 2018-08-09 06:19 | PDOC.FM ---
- Subjective Subjective: Ms. Noel has no new complaints this morning. Says she would like to go home and come back in a week to finish things up. Still episodes of atrial flutter with sinus temitope in between. - Objective Vital Signs & Weight: Vital Signs (12 hours) Temp Pulse Resp BP BP Pulse Ox 08/09/18 03:15 98.4 F 53 L 16 140/67 96 08/08/18 19:00 97.9 F 60 16 130/63 98 Weight Admit Weight 47.259 kg Weight 47.259 kg I&O: 08/07/18 08/08/18 08/09/18 06:59 06:59 07:59 Intake Total 1427 1296 2470 Output Total 900 500 4 Balance 027 774 3901 Result Diagrams: 08/07/18 04:34 08/09/18 06:35 Phys Exam - Physical Examination Constitutional: NAD HEENT: moist MMs Respiratory: no wheezing, clear to auscultation bilateral Cardiovascular: RRR, no significant murmur Gastrointestinal: soft, non-tender, no distention, positive bowel sounds Musculoskeletal: no edema Neurological: non-focal Psychiatric: normal affect Skin: normal turgor Dx/Plan (1) Sepsis Code(s): A41.9 - SEPSIS, UNSPECIFIED ORGANISM Status: Acute (2) HTN (hypertension) Code(s): I10 - ESSENTIAL (PRIMARY) HYPERTENSION Status: Acute (3) Proctitis Code(s): K62.89 - OTHER SPECIFIED DISEASES OF ANUS AND RECTUM Status: Acute (4) SVT (supraventricular tachycardia) Code(s): I47.1 - SUPRAVENTRICULAR TACHYCARDIA Status: Acute (5) Depressed Code(s): F32.9 - MAJOR DEPRESSIVE DISORDER, SINGLE EPISODE, UNSPECIFIED Status : Acute (6) CKD (chronic kidney disease) Code(s): N18.9 - CHRONIC KIDNEY DISEASE, UNSPECIFIED Status: Acute (7) Cystitis Code(s): N30.90 - CYSTITIS, UNSPECIFIED WITHOUT HEMATURIA Status: Acute (8) Pyelitis Code(s): N12 - TUBULO-INTERSTITIAL NEPHRITIS, NOT SPCF ACUTE OR CHRONIC Status: Acute - Plan Plan: Sepsis 2/2 pyelitis/cystitis/proctitis, improving - CT imaging showing evidence of this as well as proctitis with pt meeting sirs criteria through tachycardia and WBC. - Continue levaquin to continue to complete 14 day course. Continue flagyl. - has yellow diarrhea, stool studies all negative. anca pending. - Ucx shows e coli and klebsiella, sensitive to levaquin. - Urology consulted- CT improved, may follow up with PCP ALBANIAT, a fib w/ RVR - Off amio drip and now on PO amio. - A flutter intermittently with sinus bradycardia - Cardiology consulted-appreciate recommendations and EP consult today HTN - SBPs stable - continue lisinopril, amlodipine. Metoprolol stopped by cardiology. CKD4 - will renally dose medications - Cr slowly trending up since admission, 1.9 on admission->2.5 today - Urine studies ordered. Lisinopril and aspirin have been stopped. Nephrology consulted today. Depression/Anxiety - continue home sertaline Hypokalemia, improving - 3.7 on last check Hypomagnesemia - improved Possible EtOH dependence - pt denied daily drinking but ED report documented daily drinking - ASE protocol Diet: PPx: heparin SC CODE: DNI Dispo: Doing well from an infectious standpoint. Hospital course complicated by irregular rhythms and worsening creatinine. Await recommendations today.
[2018-08-09 07:27] LABS: Anion Gap 13 mmol/L (10-20); BUN (Urea Nitrogen) 19 mg/dL (9.8-20.1); Calc. Creatinine Clearance 15 mL/min (70-130); Calcium 8.5 mg/dL (7.8-10.44); Carbon Dioxide 18 mmol/L (23-31); Chloride 106 mmol/L (98-107); Estimated GFR-MDRD 18; Glucose 75 mg/dL (80-115); Potassium 3.7 mmol/L (3.5-5.1); Sodium 133 mmol/L (136-145)
[2018-08-09] MEDS: Amlodipine 10 MG TAB PO SCH (08:50)
[2018-08-09] MEDS: Aspirin 81 mg Enteric Coated Tablet PO SCH (08:51)
[2018-08-09] MEDS: metroNIDAZOLE 500 MG TAB PO SCH ×3 (08:51→21:01)
[2018-08-09] MEDS: Amiodarone 200 MG TAB PO SCH ×2 (08:51→21:02)
[2018-08-09] MEDS: Potassium Chloride 10 MEQ TAB PO SCH ×2 (08:52→21:01)
[2018-08-09] MEDS: Heparin 5,000 UNITS/ML VIAL SC SCH ×3 (08:52→21:02)
[2018-08-09] MEDS: Saccharomyces boulardii 250 MG CAP PO SCH (08:52)
--- NOTE | 2018-08-09 11:32 | PDOC.CTH ---
Cardiology Progress Note - Subjective No complaints. Reviewed chart. Still in/out flutter. - Objective Vital Signs Temp Pulse Resp BP BP Pulse Ox 08/09/18 08:50 62 175/80 H 08/09/18 03:15 98.4 F 53 L 16 140/67 96 Admit Weight 104 lb 3 oz Weight 104 lb 3 oz 08/08/18 08/09/18 08/10/18 05:59 06:59 06:59 Intake Total Output Total Balance - Physical Examination General/Neuro: alert & oriented x3 Neck: no JVD present Lungs: CTA Heart: RRR Abdomen: NT/ND - Telemetry Telemetry Rhythm: SR - Labs Result Diagrams: 08/07/18 04:34 08/09/18 06:35 Troponin/CKMB Troponin I 0.013 ng/mL (< 0.028) 08/04/18 19:02 - Assessment/Plan 1. Recurrent AFlutter 2. Paroxysmal AF 3. UTI 4. CKD-4 No changes. Await EP input.
--- NOTE | 2018-08-10 06:08 | PDOC.FM ---
- Subjective Subjective: 67 yo female seen at bedside this AM. Patient is very pleasant. She is aware that she may have been having more trouble for a longer period of time than she was initially offering. Patient is willing to get treated fully in this hospitalization. No other acute events. - Objective Vital Signs & Weight: Vital Signs (12 hours) Temp Pulse Resp BP BP BP BP 08/10/18 03:05 98.1 F 61 16 153/71 H 08/10/18 00:00 138/60 08/09/18 23:20 97.9 F 61 14 138/60 08/09/18 19:50 98.1 F 63 18 155/90 H 155/90 H Pulse Ox 08/10/18 03:05 96 08/10/18 00:00 08/09/18 23:20 93 L 08/09/18 19:50 97 Weight Admit Weight 47.259 kg Weight 47.259 kg I&O: 08/08/18 08/09/18 08/10/18 05:59 06:59 06:59 Intake Total 1852.5 Output Total 50 Balance 1802.5 Result Diagrams: 08/07/18 04:34 08/10/18 06:47 Phys Exam - Physical Examination Constitutional: NAD Respiratory: no wheezing, clear to auscultation bilateral Cardiovascular: RRR, no significant murmur Gastrointestinal: soft, non-tender, no distention, positive bowel sounds Musculoskeletal: no edema, pulses present Neurological: normal sensation, moves all 4 limbs Psychiatric: normal affect, A&O x 3 Skin: no rash Dx/Plan (1) Sepsis Code(s): A41.9 - SEPSIS, UNSPECIFIED ORGANISM Status: Resolved (2) Pyelitis Code(s): N12 - TUBULO-INTERSTITIAL NEPHRITIS, NOT SPCF ACUTE OR CHRONIC Status: Acute (3) Proctitis Code(s): K62.89 - OTHER SPECIFIED DISEASES OF ANUS AND RECTUM Status: Acute (4) Cystitis Code(s): N30.90 - CYSTITIS, UNSPECIFIED WITHOUT HEMATURIA Status: Acute (5) Atrial flutter Code(s): I48.92 - UNSPECIFIED ATRIAL FLUTTER Status: Acute (6) CKD (chronic kidney disease) Code(s): N18.9 - CHRONIC KIDNEY DISEASE, UNSPECIFIED Status: Chronic (7) HTN (hypertension) Code(s): I10 - ESSENTIAL (PRIMARY) HYPERTENSION Status: Chronic (8) Depressed Code(s): F32.9 - MAJOR DEPRESSIVE DISORDER, SINGLE EPISODE, UNSPECIFIED Status : Acute - Plan Plan: Sepsis 2/2 pyelitis/cystitis/proctitis, resolved - On admission CT imaging showing evidence of this as well as proctitis with pt meeting sirs criteria through tachycardia and WBC. - Continue levaquin to continue to complete 14 day course. Continue flagyl. - has yellow diarrhea, stool studies all negative. anca pending. - Ucx shows e coli and klebsiella, sensitive to levaquin. - Urology consulted- CT improved, may follow up with PCP SVT, a fib w/ RVR, resolved - Off amio drip and now on PO amio. - A flutter intermittently continues. - Cardiology consulted-appreciate recommendations - Awaiting EP consultation HTN - SBPs stable - continue lisinopril, amlodipine. Metoprolol stopped by cardiology. CKD4 - will renally dose medications - Cr slowly trending up since admission, 1.9 on admission-> 2.79 today - Lisinopril and aspirin have been stopped. - Nephrology consulted. Depression/Anxiety - continue home sertaline Hypokalemia, resolved - 3.6 Hypomagnesemia - improved Possible EtOH dependence - pt denied daily drinking but ED report documented daily drinking - No signs of withdrawal at this time. Disposition: Stable, will continue current plan of care and coordinate with specialty teams. Addendum - Attending - Attending Attestation Date/Time: 08/10/18 1151 I personally evaluated the patient and discussed the management with Dr. Jefferson I agree with the History, Examination, Assessment and Plan documented above with any addition or exceptions noted below.Patient overall improved will f/u outpt with Nib Adjuster concern RFT worsening not yet stable for dismissal. Care plan discussed with patient. Appreciate recommendations from Specialist. Levaquin total 14 days.
--- NOTE | 2018-08-10 06:37 | CON ---
DATE OF CONSULTATION: CONSULTING PHYSICIAN: Norma Flaherty MD REQUESTING PHYSICIAN: REASON FOR CONSULTATION: 1. Baseline chronic kidney disease, likely multifactorial including, but not limited to the following etiologies. a. Cytokine-mediated kidney injury in the context of infection. b. Intravascular depletion with prerenal component. 2. Baseline chronic kidney disease, likely in the context of hypertensive nephrosclerosis. 3. 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 PLAN: 1. Rehydration of the patient which is already ongoing. 2. Renally dose all medications and avoid potentially nephrotoxic agents. 3. Stressed on the need to discontinue tobacco usage. 4. No emergent indication at this point for renal replacement therapy. Hopefully, the renal function will improve as the recent baseline kidney function of this patient showed a creatinine of about 1.2 to 1.4. HISTORY OF PRESENT ILLNESS: A 67-year-old female patient, who was brought in here with nausea and abdominal discomfort with vomiting. The patient on clinical evaluation was noted to have developed increased amount of pyelonephritis as well as proctitis. Decision was taken to place this patient on broad-spectrum antibiotics with improvement in the extent of the pyelonephritis. Of note, the patient's baseline creatinine is about 1.2 to 1.4. However, over the course of this hospitalization, creatinine has gone up to about 2.59, thus the need for renal consultation. PAST MEDICAL HISTORY: Significant for hypertension, depression, and anxiety. FAMILY HISTORY: Not significantly related to presenting illness. ALLERGIES: NO KNOWN DRUG ALLERGIES. SOCIAL HISTORY: Significant for tobacco use. No alcohol. No illicit drug use. REVIEW OF SYSTEMS: As documented in the body of the history. All other systems were reviewed and found not to be significantly related to present illness. PHYSICAL EXAMINATION: VITAL SIGNS: On examination, the patient was noted with the following vital signs; afebrile, temperature 98.5, pulse 105 to 113, respiratory rate of 16, O2 saturations 96% to 98%, blood pressure 172/93. HEENT: Unremarkable. Moist oral mucosa. NECK: Supple. No conjunctival injection or icterus. CARDIOVASCULAR SYSTEM: First and second heart sounds were heard. RESPIRATORY SYSTEM: Clear to auscultation. DIGESTIVE SYSTEM: Revealed a benign abdomen. Positive bowel sounds. EXTREMITIES: No peripheral edema. SKIN: No new gross rash. LYMPHATICS: No peripheral lymphadenopathy. SUMMARY: A 67-year-old female emphysematous pyelonephritis and proctitis, now experiencing worsening renal function. Thank you for this consultation. We will follow with you. Job ID: [id number]
[2018-08-10 07:56] LABS: ALT (SGPT) 15 U/L (8-55); AST (SGOT) 27 U/L (5-34); Albumin 3.2 g/dL (3.4-4.8); Alkaline Phosphatase 95 U/L (40-150); Anion Gap 13 mmol/L (10-20); BUN (Urea Nitrogen) 18 mg/dL (9.8-20.1); Bilirubin, Total 0.6 mg/dL (0.2-1.2); Calc. Creatinine Clearance 14 mL/min (70-130); Calcium 8.7 mg/dL (7.8-10.44); Carbon Dioxide 23 mmol/L (23-31); Chloride 104 mmol/L (98-107); Estimated GFR-MDRD 17; Globulin 3.1 g/dL (2.4-3.5); Glucose 75 mg/dL (80-115); Potassium 3.6 mmol/L (3.5-5.1); Protein, Total 6.3 g/dL (6.0-8.3); Sodium 136 mmol/L (136-145)
[2018-08-10] MEDS ORDERED: Sodium Chloride 0.9% 10 ML ONE (07:59)
[2018-08-10] MEDS: Potassium Chloride 10 MEQ TAB PO SCH ×2 (08:41→21:02)
[2018-08-10] MEDS: Amiodarone 200 MG TAB PO SCH ×2 (08:41→21:02)
[2018-08-10] MEDS: Amlodipine 10 MG TAB PO SCH (08:41)
[2018-08-10] MEDS: metroNIDAZOLE 500 MG TAB PO SCH ×3 (08:41→21:02)
[2018-08-10] MEDS: Heparin 5,000 UNITS/ML VIAL SC SCH (08:41)
[2018-08-10] MEDS: Saccharomyces boulardii 250 MG CAP PO SCH (08:41)
--- NOTE | 2018-08-10 10:48 | CON ---
DATE OF CONSULTATION: 08/09/2018 REASON FOR CONSULTATION: Proctitis by CAT scan of abdomen, but no specific GI symptoms. HISTORY OF PRESENT ILLNESS: Ms. Mary Kate Noel is a very pleasant 67-year-old female, patient of Dr. Bonifacio Ardon. The patient is actually feeling better since admission. The patient tells me she felt yucky and did not feel good, she went to [facility]. Apparently, she was to found have pyelonephritis and also an abdominal CAT scan. The CAT scan reported thickening of the rectal wall. The patient also was found to have SVT with fast ventricular rate. Her rate has been controlled. The patient actually feeling better at the present time. Denies any abdominal pain, chest pain, difficulty breathing, nausea, vomiting. She says she had 2 loose watery stools today. Yesterday, she had one stool. The patient usually has a regular bowel once a day. Apparently a week ago, she was constipated for a day or two and she was straining at stool. At that time, she had rectal bleeding. The patient tells me she had a colonoscopy three months ago for colon cancer screening and was told to be negative. Although the CAT scan showed thickening of rectal wall, she really has no specific GI symptoms like diarrhea, hematochezia, etc. She has no relevant history. MEDICAL ILLNESSES: 1. Hypertension. 2. History of cardiac arrhythmia, had never been seen by a team cdl driver until this admission. PAST SURGICAL HISTORY: None. FAMILY HISTORY: Both parents with coronary artery disease. SOCIAL HISTORY: The patient is a smoker, smokes a packet of cigarettes per day. No history of alcohol abuse, but she does drink socially. MEDICATION LIST: Reviewed. She is on 1. Amiodarone. 2. Amlodipine. 3. Heparin subcu. 4. Labetalol. 5. Levofloxacin. 6. Metronidazole. 7. Ondansetron. 8. MiraLAX. 9. Potassium chloride. Since admission, she had been seen by Dr. Bryan Langston for urology and found to have pyelonephritis on abdominal CAT scan. REVIEW OF SYSTEMS: Systems reviewed and remarkable for feeling sick, not feeling well for several days before she came to the ER. PHYSICAL EXAMINATION: GENERAL: She appears comfortable. She is thin built, in no distress. VITAL SIGNS: She is afebrile. Temperature 98.5 degrees Fahrenheit, pulse is 113, blood pressure 143/93. Conjunctivae clear. NECK: Supple. No adenitis or thyromegaly noted. CARDIOVASCULAR: First and second heart sounds heard. LUNGS: Clear to auscultation. ABDOMEN: Soft. Abdomen is nondistended. Abdomen is nontender. There is no organomegaly or masses. EXTREMITIES: Reveal no edema. The patient has had stool C difficile, Campylobacter assay, and shiga toxin. All reported negative. The stool for occult blood came back negative. LABORATORY DATA: CBC on admission WBC 13,700, dropping to 9900 today, hemoglobin 13.7, hematocrit 40.9, MCV 108, platelet count is 159,000, polymorphs 75, lymphocytes 14, monocytes 7. Serum chemistry; sodium is 133, potassium 3.9, chloride 103, bicarb 18, BUN is 18, creatinine 2.10 and up to 2.58 today, glucose 75, magnesium 1.7. Liver function tests are normal. Bilirubin is 0.7, AST is 22, ALT is 7, alkaline phosphatase is 90. The patient had abdominal CAT scan on 08/07/2018, which revealed thickened rectal wall, reports proctitis. She also noted to have increased density over the right upper pole, etiology unclear. CLINICAL IMPRESSION: 1. A 67-year-old female, hospitalized because of feeling sick, not feeling well, and some vague symptoms. She was found to have thickening of the rectal wall on admission. Ultimately, she has no rectal bleeding or diarrhea. She tells me she had a colonoscopy three months ago and was told to be negative. It is difficult to interpret the CAT findings with negative symptoms. 2. Urinary tract infection, pyelonephritis. 3. Supraventricular tachycardia, controlled. 4. Hypertension. RECOMMENDATION: From GI standpoint, I do not feel that she need a colonoscopy or any studies as she has no symptoms. She had a colonoscopy three months ago and we will try to locate it, possibly at [facility]. Once we locate the operative report, we can make further recommendation. Job ID: [id number]
--- NOTE | 2018-08-10 11:13 | PRG ---
DATE OF SERVICE: 08/08/2018 ADDENDUM: Please see note from Dr. Fitzgerald, for which I agree. The patient was seen, evaluated, discussed and examined with the residents. This is a 67-year-old, who is in the hospital for sepsis from pyelonephritis and also note she was having proctitis and has had just chronic diarrhea, now yellow stools. Initial C difficile was negative. She is currently on Levaquin. It sounds like UTI-limon, she is doing better. Does have chronic COPD, but has been stable. The main issue with her is having problems with arrhythmia since she has been here, was doing better on amiodarone, but then last night ended up going into aflutter again, so it is unclear if she is cleared from a cardiology standpoint or not to potentially go, because otherwise it sounds like she is okay to go. On exam is totally benign. Currently, regular rate and rhythm. Chest, clear. Abdomen is benign. Her blood workup today looks pretty stable. Creatinine 2.1. It sounds like that is her baseline. We will see what cardiology says and maybe I will send her on Levaquin and probably add Flagyl for the diarrhea and proctitis , assuming this is a little bit of an infectious cause. Job ID: [id number]
--- NOTE | 2018-08-10 11:24 | PRG ---
DATE OF SERVICE: 08/09/2018 ADDENDUM: The patient unfortunately still going in and out of atrial flutter and Cardiology wants mri assistant to see her. Symptom limon, she is better from UTI standpoint. She was switched to Levaquin and Flagyl. Still having intermittent diarrhea and a CT from a couple days ago still showed a lot of fluid around the rectum and unclear if this is some kind of infectious proctitis. I do not think there is any reason to suspect the fistula as far as urinary issue, but still not sure what this proctitis is. Not sure this is inflammatory just purely infectious. Symptom limon, she actually feels a lot better, but her creatinine is also bumped up to 2.5 and so just a lot of multifactorial things going on here that seems to go in the wrong direction. She is not having fever though. Abdomen is benign. So, we will see what EPS says. We will continue the same IV antibiotics and likely going to get GI to see her, at least get an opinion if we need to scope her now or potentially does wait to follow this out. Job ID: [id number]
--- NOTE | 2018-08-10 19:24 | PRG ---
DATE OF SERVICE: 08/10/2018 SUBJECTIVE: The patient is seen and examined, noted with the following vital signs. OBJECTIVE: VITAL SIGNS: Afebrile, temperature 98, pulse 66, respiratory rate of 16, O2 saturations 98% with blood pressure of 168/73. HEENT: Unremarkable. Moist oral mucosa. Neck was supple. No conjunctival injection or icterus. CARDIOVASCULAR: First and second heart sounds were heard. RESPIRATORY: Clear to auscultation. DIGESTIVE: Revealed a benign abdomen with positive bowel sounds. EXTREMITIES: No peripheral edema. SKIN: No new gross rash. LYMPHATICS: No peripheral lymphadenopathy. IMPRESSION: 1. Acute kidney injury/acute tubular necrosis with creatinine rising. 2. Hypertension. PLAN: 1. We will continue current renal supportive measures. It is not unlikely for the creatinine to get worse before it plateaus and begin to show improvement. The patient is nonoliguric. Therefore, we will continue to monitor her renal function panel. 2. Avoid potentially nephrotoxic agents and renally dose all medications for low GFR. Job ID: [id number]
--- NOTE | 2018-08-11 06:11 | PDOC.FM ---
- Subjective Subjective: Pleasant 67 yo female seen at bedside this AM. Patient is doing very well. She is ready to go home whenever it is safe to do so. She denies any pain, dysuria, n/v/d, or fevers. She states she has been up and walking to get her own ice without difficulty. She is very thankful for the care she has received. No other complaints. - Objective Vital Signs & Weight: Vital Signs (12 hours) Temp Pulse Resp BP BP Pulse Ox 08/11/18 02:59 98.7 F 64 147/70 H 94 L 08/11/18 00:08 98.6 F 67 17 147/65 H 96 08/11/18 00:00 147/65 H 08/10/18 20:00 137/100 H 96 Weight Admit Weight 47.259 kg Weight 48.172 kg I&O: 08/09/18 08/10/18 08/11/18 06:59 06:59 06:59 Intake Total 2252.5 1480 Output Total 50 Balance 2202.5 1480 Result Diagrams: 08/07/18 04:34 08/11/18 08:56 Phys Exam - Physical Examination Constitutional: NAD HEENT: moist MMs Wearing sunglasses Respiratory: no wheezing, clear to auscultation bilateral Cardiovascular: RRR, no significant murmur Gastrointestinal: soft, non-tender, no distention, positive bowel sounds Musculoskeletal: no edema, pulses present Neurological: non-focal, normal sensation, moves all 4 limbs Psychiatric: normal affect, A&O x 3 Skin: no rash Dx/Plan (1) Sepsis Code(s): A41.9 - SEPSIS, UNSPECIFIED ORGANISM Status: Resolved (2) Pyelitis Code(s): N12 - TUBULO-INTERSTITIAL NEPHRITIS, NOT SPCF ACUTE OR CHRONIC Status: Acute (3) Proctitis Code(s): K62.89 - OTHER SPECIFIED DISEASES OF ANUS AND RECTUM Status: Acute (4) Cystitis Code(s): N30.90 - CYSTITIS, UNSPECIFIED WITHOUT HEMATURIA Status: Acute (5) Atrial flutter Code(s): I48.92 - UNSPECIFIED ATRIAL FLUTTER Status: Acute (6) CKD (chronic kidney disease) Code(s): N18.9 - CHRONIC KIDNEY DISEASE, UNSPECIFIED Status: Chronic (7) HTN (hypertension) Code(s): I10 - ESSENTIAL (PRIMARY) HYPERTENSION Status: Chronic (8) Depressed Code(s): F32.9 - MAJOR DEPRESSIVE DISORDER, SINGLE EPISODE, UNSPECIFIED Status : Acute - Plan Plan: Sepsis 2/2 pyelitis/cystitis/proctitis, resolved - On admission CT imaging showing evidence of this as well as proctitis with pt meeting sirs criteria through tachycardia and WBC. - Continue levaquin to continue to complete 14 day course. Continue flagyl. - has yellow diarrhea, stool studies all negative. anca pending. - Ucx shows e coli and klebsiella, sensitive to levaquin. - Urology consulted- CT improved, may follow up with PCP - GI recommends outpatient follow up as well. SVT, a fib w/ RVR, resolved - Off amio drip and now on PO amio. - maintained sinus rhythm for over 24 hours as of today. - Cardiology consulted-appreciate recommendations - EP consultation recommended outpatient follow up unless symptoms persist. HTN - SBPs stable - continue lisinopril, amlodipine. Metoprolol stopped by cardiology. CKD4 - will renally dose medications - Cr slowly trending up since admission, 1.9 on admission-> Pending value today - Lisinopril and aspirin have been stopped. - Nephrology consulted. Depression/Anxiety - continue home sertaline Hypokalemia, resolved - Pending this AM Hypomagnesemia - improved Possible EtOH dependence - pt denied daily drinking but ED report documented daily drinking - No signs of withdrawal at this time. Disposition: Stable, will continue current plan of care and coordinate with specialty teams. Addendum - Attending - Attending Attestation Date/Time: 08/11/18 2055 I personally evaluated the patient and discussed the management with Dr. Jefferson I agree with the History, Examination, Assessment and Plan documented above with any addition or exceptions noted below. RFT's remain elevated will consult with Nephrology about another further recommendation as inpatient patient aware need continued course po levaquin.
--- NOTE | 2018-08-11 08:10 | CON ---
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 Her problems are: 1. Paroxysmal SVT. a. Initial presentation in the ER with narrow complex SVT with rates in the 130s , spontaneously terminating in the setting of nausea and vomiting. 2. Subsequent recurrence of atrial flutter with possibly typical isthmus- dependent morphology, paroxysmal on IV, then p.o. amiodarone loading. 3. Episodic atrial tachycardia. 4. Urosepsis with pyelitis, on antibiotics. 5. History of hypertension. 6. Anxiety and depression. 7. History of preserved LVEF on echo 03/12/2018, ejection fraction of 60% to 65% . Mildly dilated left atrium, moderate mitral regurgitation, mild aortic regurgitation, mild tricuspid regurgitation, pulmonary hypertension at 42 mmHg. ALLERGIES: NONE NOTED. MEDICATIONS AT HOME: Included: 1. Lisinopril 5 mg twice a day. 2. Metoprolol succinate 100 mg twice a day. 3. Potassium chloride. 4. Amlodipine. 5. Sertraline. 6. Aspirin. SUBJECTIVE: Ms. Noel was admitted on with nausea and vomiting. She was evaluated in the ER, found to be in SVT. Dr. Ortiz was further consulted. She was noted to have pyelonephritis originally she went to and then eventually transferred to our facility for further care. Since the hospitalization, the patient was started on amiodarone, which converted the patient back to sinus rhythm, later had episode of atrial arrhythmias, atrial tachycardia is noted, also atrial flutter was seen. She is now on p.o. amiodarone taper. Currently, she is feeling better. Denies palpitation, dizziness, loss of consciousness. No stroke-like symptoms. No neurological deficits. No fever, chills, cough. No PND or orthopnea. Rest of 12-point system otherwise unremarkable. PAST MEDICAL HISTORY: History of heart rate issues in the past. The patient is on chronic metoprolol. She has history of depression and anxiety. PAST SURGICAL HISTORY: No surgical history noted. SOCIAL HISTORY: A [id number] smoking history. Drinks alcohol socially. Denies drug use. FAMILY HISTORY: Not contributory. PHYSICAL EXAMINATION: VITAL SIGNS: Blood pressure is 152/66, heart rate 69, respiratory rate 16, temperature 98.1 degrees Fahrenheit. GENERAL: Alert and oriented elderly woman, in no apparent distress. NECK: Supple. Jugular veins not distended. CHEST: Coarse crackles. HEART: Sounds are regular, rate and rhythm. No murmur or gallop. ABDOMEN: Benign. Bowel sounds positive. EXTREMITIES: Lower extremities without edema, clubbing, or cyanosis. DATABASE: The EKG is reviewed revealing an episodic SVT with a short RP interval, suggestive of possible AV malika reentrant tachycardia, termination with P waves. Subsequent EKGs revealed sinus rhythm. Eventual development of atrial tachycardia is noted, which appears to be stable, 1:1 conducted, right atrial tachycardia, biphasic P-wave morphology. Also has episodes of atrial flutter on telemetry, which might be isthmus dependent. LABORATORY DATA: The white cells 9.9, hemoglobin 13.7, platelet count is 159. Sodium 136, potassium 3.6, BUN is 18, creatinine 2.79. ASSESSMENT AND PLAN: Mrs. Noel is a pleasant 67-year-old woman with prior history of hypertension, preserved left ventricular ejection fraction by echocardiogram in the past, history of palpitations, which was treated with metoprolol. She has preserved LVEF. She has presented with nausea, vomiting, constipation. Her renal function is worsened slightly compared to her baseline in July or as back in October. She had near normal renal function. I reviewed the EKG. It seems this lady has multi-circuit arrhythmias, As far as his initial SVT is concenrned - cannot rule out AV malika reentrant tachycardia. some telemtry strips also could be suggestive of typical, isthmcu dependent atrial flutter. Episodes of right atrial tachycardia also could be also present and this could potentially be mapped and ablated. Right now, she is on suppressive therapy with amiodarone, which though might eliminate these arrhythmias fairly well. I discussed with her the treatment options, continued amiodarone therapy likely will be effective, but long-term side effects may be creating risk of developement of serious side effects for her. We discussed these. If she remains on amiodarone, she will need periodic liver, thyroid, lung exams and evaluation such as the eye exams yearly. Also, she needs monitoring for bradycardia. We did discuss potential option for EP study and ablation. Especially if recurrent arrhythmias are seen, this may be the preferred way to go. At this point, she prefers conservative therapy and consideration for outpatient ablation. We will follow with you while she is in the hospital. For now, continue the current regimen. She had CHADS-VASc score of 3. If more sustained atrial arrhythmias are seen, anticoagulation could be a consideration for now. We would hold off on that. Continue DVT prophylaxis with Lovenox. We will follow with you. Thank you again for allowing me to participate in the care of this patient. Job ID: [id number] LYNN
[2018-08-11] MEDS: metroNIDAZOLE 500 MG TAB PO SCH ×3 (09:03→20:54)
[2018-08-11] MEDS: Amlodipine 10 MG TAB PO SCH (09:03)
[2018-08-11] MEDS: Saccharomyces boulardii 250 MG CAP PO SCH (09:03)
[2018-08-11] MEDS: Amiodarone 200 MG TAB PO SCH ×2 (09:03→20:53)
[2018-08-11] MEDS: Enoxaparin Sodium 30 MG/0.3 ML SYRINGE SC SCH (09:04)
[2018-08-11] MEDS: Potassium Chloride 10 MEQ TAB PO SCH ×2 (09:04→20:54)
[2018-08-11 09:33] LABS: ALT (SGPT) 13 U/L (8-55); AST (SGOT) 23 U/L (5-34); Albumin 3.1 g/dL (3.4-4.8); Alkaline Phosphatase 92 U/L (40-150); Anion Gap 13 mmol/L (10-20); BUN (Urea Nitrogen) 18 mg/dL (9.8-20.1); Bilirubin, Total 0.6 mg/dL (0.2-1.2); Calc. Creatinine Clearance 14 mL/min (70-130); Calcium 8.6 mg/dL (7.8-10.44); Carbon Dioxide 23 mmol/L (23-31); Chloride 105 mmol/L (98-107); Estimated GFR-MDRD 16; Globulin 2.8 g/dL (2.4-3.5); Glucose 85 mg/dL (80-115); Potassium 3.6 mmol/L (3.5-5.1); Protein, Total 5.9 g/dL (6.0-8.3); Sodium 137 mmol/L (136-145)
[2018-08-11] MEDS: Ondansetron ODT 4 MG TAB PO PRN (10:24)
--- NOTE | 2018-08-11 14:36 | PDOC.CTH ---
Cardiology Progress Note - Subjective EP PROGRESS NOTE: 08/11/18 Seen as follow up for SVT and atrial flutter. Feels well, eager to go home. Having many less palpitations. No new cardiac concerns or complaints. - Objective Vital Signs Temp Pulse Resp BP BP Pulse Ox 08/11/18 11:50 98.0 F 95 15 130/78 93 L 08/11/18 07:47 97.9 F 65 16 163/77 H 98 08/11/18 02:59 98.7 F 64 147/70 H 94 L Admit Weight 104 lb 3 oz Weight 106 lb 12.8 oz 08/10/18 08/11/18 08/12/18 06:59 06:59 06:59 Intake Total 2252.5 1800 Output Total 50 200 Balance 2202.5 1600 - Physical Examination General/Neuro: alert & oriented x3, NAD Neck: carotid US brisk, no JVD present Lungs: CTA, unlabored respirations Heart: PMI normal, RRR Abdomen: NT/ND, soft - Telemetry Telemetry Rhythm: SR - Labs Result Diagrams: 08/07/18 04:34 08/11/18 08:56 Troponin/CKMB Troponin I 0.013 ng/mL (< 0.028) 08/04/18 19:02 - Assessment/Plan 1. SVT, paroxysmal -ventricular rates ~130s -spontaneously term with Nausea/vomiting 2. Atrial flutter, possibly typical - suppressed with amiodarone 3. Paroxysmal atrial tachcardia 4. Urosepsis -pyelonephritis - antibiotic therapy 5. Preserved LVEF 6. CHADS2-VASC: 3 - consider OAC if recurrent/ sustained atrial arrhythmias are seen On amiodarone taper, short term therapy ok but poor option for filler leaf cutter long management with side effects and risk with halfway amio therapy. Will allow her to recover from medical issues then see her back in clinic to further discuss EP study and possible ablation once amiodarone is stopped. Alt. antiarrhythmic therapy includes flecainide, multaq, or propafenone. Multiple abnormal rhythms seen on tele as mentioned above. Will see back in clinic in 6 weeks. Continue PO amiodarone taper upon DC
--- NOTE | 2018-08-11 20:12 | PRG ---
DATE OF SERVICE: 08/11/2018 SUBJECTIVE: The patient is seen and examined. Seems to be doing much better. Noted with the following vital signs. OBJECTIVE: VITAL SIGNS: Afebrile, temperature 97.7, pulse 67, respiratory rate of 16, O2 saturations are 98%, and blood pressure 138/79. HEENT: Unremarkable. CARDIOVASCULAR SYSTEM: First and second heart sounds were heard. RESPIRATORY SYSTEM: Clear to auscultation. DIGESTIVE SYSTEM: Revealed a benign abdomen. EXTREMITIES: No peripheral edema. SKIN: No new gross rash. LYMPHATICS: No peripheral lymphadenopathy. LABORATORY INVESTIGATION: Significant for creatinine of 2.97. IMPRESSION: Acute on chronic kidney disease with creatinines till trending upwards. This is likely acute tubular necrosis. PLAN: 1. Given that the creatinine is still trending upwards, we will still like to observe this patient in formal 24 hours. 2. Once the current creatinine plateaus, the next phase will be recovery. Therefore, once there is any evidence of sign of plateau, then the patient will be safe for discharge with a plan to outpatient Nephrology followup status post discharge. 3. Continue to avoid nephrotoxic agents and renally dose all medications for lower GFR. Job ID: [id number]
--- NOTE | 2018-08-12 06:09 | PDOC.FM ---
- Subjective Subjective: 67 yo female seen at bedside this AM. Patient has no complaints. She denies any problems with swelling or SOB. She states that she is urinating frequently. No other complaints. - Objective Vital Signs & Weight: Vital Signs (12 hours) Temp Pulse Resp BP BP Pulse Ox 08/12/18 03:00 98.0 F 58 L 14 118/58 L 97 08/12/18 00:00 18 08/11/18 20:00 97.9 F 64 20 143/65 H 98 Weight Admit Weight 47.259 kg Weight 48.308 kg I&O: 08/10/18 08/11/18 08/12/18 06:59 06:59 06:59 Intake Total 2252.5 1800 936 Output Total 50 200 200 Balance 2202.5 1600 736 Result Diagrams: 08/07/18 04:34 08/12/18 06:23 Phys Exam - Physical Examination Constitutional: NAD HEENT: moist MMs Wearing sunglasses Respiratory: no wheezing, clear to auscultation bilateral Cardiovascular: RRR, no significant murmur Gastrointestinal: soft, non-tender, no distention, positive bowel sounds Musculoskeletal: no edema, pulses present Neurological: non-focal, normal sensation, moves all 4 limbs Lymphatic: no nodes Psychiatric: normal affect, A&O x 3 Skin: no rash Dx/Plan (1) Sepsis Code(s): A41.9 - SEPSIS, UNSPECIFIED ORGANISM Status: Resolved (2) Pyelitis Code(s): N12 - TUBULO-INTERSTITIAL NEPHRITIS, NOT SPCF ACUTE OR CHRONIC Status: Acute (3) Proctitis Code(s): K62.89 - OTHER SPECIFIED DISEASES OF ANUS AND RECTUM Status: Acute (4) Cystitis Code(s): N30.90 - CYSTITIS, UNSPECIFIED WITHOUT HEMATURIA Status: Acute (5) Atrial flutter Code(s): I48.92 - UNSPECIFIED ATRIAL FLUTTER Status: Acute (6) CKD (chronic kidney disease) Code(s): N18.9 - CHRONIC KIDNEY DISEASE, UNSPECIFIED Status: Chronic (7) HTN (hypertension) Code(s): I10 - ESSENTIAL (PRIMARY) HYPERTENSION Status: Chronic (8) Depressed Code(s): F32.9 - MAJOR DEPRESSIVE DISORDER, SINGLE EPISODE, UNSPECIFIED Status : Acute - Plan Plan: Sepsis 2/2 pyelitis/cystitis/proctitis, resolved - On admission CT imaging showing evidence of this as well as proctitis with pt meeting sirs criteria through tachycardia and WBC. - Continue levaquin to continue to complete 14 day course. Continue flagyl. - has yellow diarrhea, stool studies all negative. anca pending. - Ucx shows e coli and klebsiella, sensitive to levaquin. - Urology consulted- CT improved, may follow up with PCP - GI recommends outpatient follow up as well. SVT, a fib w/ RVR, resolved - Off amio drip and now on PO amio. - maintained sinus rhythm - Cardiology consulted-appreciate recommendations - EP consultation recommended outpatient follow up unless symptoms persist. HTN - SBPs stable - continue lisinopril, amlodipine. Metoprolol stopped by cardiology. CKD4 - will renally dose medications - Cr slowly trending up since admission, 1.9 on admission-> 3.11 today - Lisinopril and aspirin have been stopped. - Nephrology consulted, Dr. Green recommends hospitalization until Creatinine plateaus or downtrends. Depression/Anxiety - continue home sertaline Hypokalemia, resolved - 3.6 this AM Hypomagnesemia - improved Possible EtOH dependence - pt denied daily drinking but ED report documented daily drinking - No signs of withdrawal at this time. Disposition: Stable, will continue current plan of care and coordinate with specialty teams. Addendum - Attending - Attending Attestation Date/Time: 08/12/18 6007 I personally evaluated the patient and discussed the management with Dr. Jefferson I agree with the History, Examination, Assessment and Plan documented above with any addition or exceptions noted below.
[2018-08-12 06:57] LABS: ALT (SGPT) 11 U/L (8-55); AST (SGOT) 22 U/L (5-34); Albumin 3.3 g/dL (3.4-4.8); Alkaline Phosphatase 94 U/L (40-150); Anion Gap 12 mmol/L (10-20); BUN (Urea Nitrogen) 16 mg/dL (9.8-20.1); Bilirubin, Total 0.5 mg/dL (0.2-1.2); Calc. Creatinine Clearance 13 mL/min (70-130); Calcium 8.9 mg/dL (7.8-10.44); Carbon Dioxide 24 mmol/L (23-31); Chloride 104 mmol/L (98-107); Estimated GFR-MDRD 15; Globulin 3.1 g/dL (2.4-3.5); Glucose 86 mg/dL (80-115); Potassium 3.6 mmol/L (3.5-5.1); Protein, Total 6.4 g/dL (6.0-8.3); Sodium 136 mmol/L (136-145)
[2018-08-12] MEDS: Amlodipine 10 MG TAB PO SCH (09:22)
[2018-08-12] MEDS: Potassium Chloride 10 MEQ TAB PO SCH ×2 (09:22→20:28)
[2018-08-12] MEDS: Saccharomyces boulardii 250 MG CAP PO SCH (09:22)
[2018-08-12] MEDS: Amiodarone 200 MG TAB PO SCH ×2 (09:23→20:28)
[2018-08-12] MEDS: Enoxaparin Sodium 30 MG/0.3 ML SYRINGE SC SCH (09:23)
[2018-08-12] MEDS: metroNIDAZOLE 500 MG TAB PO SCH ×3 (09:23→20:28)
[2018-08-12] MEDS: Sodium Chloride 0.9% 1,000 ML IV SCH (11:43)
--- NOTE | 2018-08-12 16:53 | PDOC.CTH ---
Cardiology Progress Note - Subjective EP PROGRESS NOTE: 08/12/18 Seen as follow up for SVT and atrial flutter. Feels well, eager to go home but will to stay while her infection resolves. Having many less palpitations. No new cardiac concerns or complaints. - Objective Vital Signs Temp Pulse Resp BP BP Pulse Ox 08/12/18 15:03 97.9 F 63 16 126/62 95 08/12/18 12:56 98.2 F 61 16 142/66 H 96 08/12/18 07:41 97.6 F 65 17 153/69 H 97 Admit Weight 104 lb 3 oz Weight 106 lb 8 oz 08/11/18 08/12/18 08/13/18 06:59 06:59 06:59 Intake Total 1800 936 Output Total 200 200 Balance 1600 736 - Physical Examination General/Neuro: alert & oriented x3, NAD Neck: carotid US brisk, no JVD present Lungs: CTA, unlabored respirations Heart: PMI normal Abdomen: NT/ND, soft - Telemetry Telemetry Rhythm: SR, A tach, A flutter - Labs Result Diagrams: 08/07/18 04:34 08/13/18 10:41 Troponin/CKMB Troponin I 0.013 ng/mL (< 0.028) 08/04/18 19:02 - Assessment/Plan 1. SVT, paroxysmal -ventricular rates ~130s -spontaneously term with Nausea/vomiting 2. Atrial flutter, possibly typical - suppressed with amiodarone 3. Paroxysmal atrial tachcardia 4. Urosepsis -pyelonephritis - antibiotic therapy 5. Preserved LVEF 6. CHADS2-VASC: 3 - consider OAC if recurrent/ sustained atrial arrhythmias are seen No changes to EP plan. She remains on amiodarone taper, short term therapy ok but poor option for buttermaker management with side effects and risk with buttermaker amio therapy. Will allow her to recover from medical issues then see her back in clinic to further discuss EP study and possible ablation once amiodarone is stopped. Alt. antiarrhythmic therapy includes flecainide, multaq, or propafenone. Multiple abnormal rhythms seen on tele as mentioned above. Will see back in clinic in 6 weeks. Continue PO amiodarone taper upon DC Addendum - Physician - Physician Attestation Date/Time: 08/14/18 9371 I personally performed or re-performed the physical examination and medical decision making. I have verified all student documentation or findings, including history, physical exam and/or medical decision making.
[2018-08-13] MEDS: Sodium Chloride 0.9% 1,000 ML IV SCH (05:55)
--- NOTE | 2018-08-13 08:18 | PDOC.FM ---
- Subjective Subjective: 67 yo female seen at bedside this AM. Patient slept well overnight. No other acute events. - Objective Vital Signs & Weight: Vital Signs (12 hours) Temp Pulse Resp BP Pulse Ox 08/13/18 04:00 96.8 F L 59 L 18 136/65 94 L 08/13/18 00:00 18 Weight Admit Weight 47.259 kg Weight 49.532 kg I&O: 08/12/18 08/13/18 08/14/18 06:59 06:59 06:59 Intake Total 936 1580 Output Total 200 Balance 736 1580 Result Diagrams: 08/07/18 04:34 08/13/18 10:41 Phys Exam - Physical Examination Constitutional: NAD HEENT: moist MMs wearing sunglasses Respiratory: no wheezing, clear to auscultation bilateral Cardiovascular: RRR, no significant murmur Gastrointestinal: soft, non-tender, no distention, positive bowel sounds Musculoskeletal: no edema, pulses present Neurological: non-focal, normal sensation, moves all 4 limbs Psychiatric: A&O x 3 Skin: no rash Dx/Plan (1) Sepsis Code(s): A41.9 - SEPSIS, UNSPECIFIED ORGANISM Status: Resolved (2) Pyelitis Code(s): N12 - TUBULO-INTERSTITIAL NEPHRITIS, NOT SPCF ACUTE OR CHRONIC Status: Acute (3) Proctitis Code(s): K62.89 - OTHER SPECIFIED DISEASES OF ANUS AND RECTUM Status: Acute (4) Cystitis Code(s): N30.90 - CYSTITIS, UNSPECIFIED WITHOUT HEMATURIA Status: Acute (5) Atrial flutter Code(s): I48.92 - UNSPECIFIED ATRIAL FLUTTER Status: Acute (6) CKD (chronic kidney disease) Code(s): N18.9 - CHRONIC KIDNEY DISEASE, UNSPECIFIED Status: Chronic (7) HTN (hypertension) Code(s): I10 - ESSENTIAL (PRIMARY) HYPERTENSION Status: Chronic (8) Depressed Code(s): F32.9 - MAJOR DEPRESSIVE DISORDER, SINGLE EPISODE, UNSPECIFIED Status : Acute - Plan Plan: Sepsis 2/2 pyelitis/cystitis/proctitis, resolved - On admission CT imaging showing evidence of this as well as proctitis with pt meeting sirs criteria through tachycardia and WBC. - Continue levaquin to continue to complete 14 day course. Continue flagyl. - has yellow diarrhea, stool studies all negative. anca pending. - Ucx shows e coli and klebsiella, sensitive to levaquin. - Urology consulted- CT improved, may follow up with PCP - GI recommends outpatient follow up as well. SVT, a fib w/ RVR, resolved - Off amio drip and now on PO amio. - maintained sinus rhythm - Cardiology consulted-appreciate recommendations - EP consultation recommended outpatient follow up unless symptoms persist. HTN - SBPs stable - continue lisinopril, amlodipine. Metoprolol stopped by cardiology. CKD4 - will renally dose medications - Cr slowly trending up since admission, 1.9 on admission-> pending today - Lisinopril and aspirin have been stopped. - Nephrology consulted, Dr. Green recommends hospitalization until Creatinine plateaus or downtrends. Depression/Anxiety - continue home sertaline Hypokalemia, resolved - pending this AM Hypomagnesemia - improved Possible EtOH dependence - pt denied daily drinking but ED report documented daily drinking - No signs of withdrawal at this time. Disposition: Stable, will continue current plan of care and coordinate with specialty teams. Addendum - Attending - Attending Attestation Date/Time: 08/13/18 1769 I personally evaluated the patient and discussed the management with Dr. Jefferson I agree with the History, Examination, Assessment and Plan documented above with any addition or exceptions noted below.Patient doing well D/C with outpatient f/u pending results this AM RFT.
[2018-08-13 08:30] VITALS: TEMP 97.8
[2018-08-13] MEDS: Potassium Chloride 10 MEQ TAB PO SCH (08:35)
[2018-08-13] MEDS: Amiodarone 200 MG TAB PO SCH (08:35)
[2018-08-13] MEDS: Amlodipine 10 MG TAB PO SCH (08:35)
[2018-08-13] MEDS: metroNIDAZOLE 500 MG TAB PO SCH ×2 (08:36→16:37)
[2018-08-13] MEDS ORDERED: Apixaban 2.5 MG TAB PO SCH (09:00)
[2018-08-13] MEDS: Saccharomyces boulardii 250 MG CAP PO SCH (10:49)
--- NOTE | 2018-08-13 11:12 | PRG ---
DATE OF SERVICE: 08/13/2018 SUBJECTIVE: The patient was seen and examined, noted with the following vital signs. OBJECTIVE: VITAL SIGNS: Afebrile, temperature 97.8, pulse 61, respiratory rate of 17, O2 saturations 98%, with blood pressure of 159/70. HEENT: Unremarkable. CARDIOVASCULAR: First and second heart sounds were heard. RESPIRATORY: Clear to auscultation. DIGESTIVE: Revealed a benign abdomen with positive bowel sounds. EXTREMITIES: No peripheral edema. SKIN: No new gross rash. LYMPHATICS: No peripheral lymphadenopathy. IMPRESSION: Acute on chronic kidney disease. Unfortunately, no chemistry this morning yet. PLAN: If the patient's creatinine seems to have plateaued, from the renal standpoint, to be good to discharge this patient and follow up with me as an outpatient with a repeat chemistry in 2 weeks' time. Job ID: [id number]
[2018-08-13 11:15] LABS: Anion Gap 13 mmol/L (10-20); BUN (Urea Nitrogen) 18 mg/dL (9.8-20.1); Calc. Creatinine Clearance 14 mL/min (70-130); Calcium 8.2 mg/dL (7.8-10.44); Carbon Dioxide 20 mmol/L (23-31); Chloride 107 mmol/L (98-107); Estimated GFR-MDRD 15; Glucose 103 mg/dL (80-115); Potassium 4.5 mmol/L (3.5-5.1); Sodium 135 mmol/L (136-145)
--- NOTE | 2018-08-13 11:23 | PRG ---
DATE OF SERVICE: 08/12/2018 SUBJECTIVE: The patient is seen and examined, in no new complaints. Very eager to go home. Hemodynamically stable. OBJECTIVE: HEENT: Unremarkable. CARDIOVASCULAR SYSTEM: First and second heart sounds were heard. RESPIRATORY SYSTEM: Clear to auscultation. DIGESTIVE: Benign abdomen with positive bowel sounds. EXTREMITIES: No peripheral edema. SKIN: No new gross rash. LYMPHATICS: No peripheral lymphadenopathy. LABORATORY DATA: Creatinine of 3.11 up from 2.97. IMPRESSION: Acute on chronic kidney disease in the context of acute tubular necrosis with creatinine still rising. PLAN: I do agree with IV fluid to gently rehydrate this patient and re-evaluate the renal function. Once we experienced the renal function has plateaued, from my own renal standpoint, the patient to be able to be discharged with a plan for close outpatient Nephrology followup in 2 weeks with a repeat chemistry. Job ID: [id number]
[2018-08-13 13:03] VITALS: BMI 18.7
--- NOTE | 2018-08-13 14:29 | PDOC.CTH ---
Cardiology Progress Note - Subjective EP PROGRESS NOTE: 08/13/18 Seen as follow up for SVT and atrial flutter. Feels well, eager to go home but will to stay while her infection resolves. Having many less palpitations. No new cardiac concerns or complaints. - Objective Vital Signs Temp Pulse Resp BP BP Pulse Ox 08/13/18 08:35 61 08/13/18 08:29 97.8 F 61 17 159/70 H 98 08/13/18 04:00 96.8 F L 59 L 18 136/65 94 L Admit Weight 104 lb 3 oz Weight 109 lb 3.2 oz 08/12/18 08/13/18 08/14/18 06:59 06:59 06:59 Intake Total 936 1580 Output Total 200 Balance 736 1580 - Physical Examination General/Neuro: alert & oriented x3, NAD Neck: carotid US brisk, no JVD present Lungs: CTA, unlabored respirations Heart: PMI normal, RRR Abdomen: NT/ND, soft - Telemetry Telemetry Rhythm: SR - Labs Result Diagrams: 08/07/18 04:34 08/13/18 10:41 Troponin/CKMB Troponin I 0.013 ng/mL (< 0.028) 08/04/18 19:02 - Assessment/Plan 1. SVT, paroxysmal -ventricular rates ~130s -spontaneously term with Nausea/vomiting 2. Atrial flutter, possibly typical - suppressed with amiodarone 3. Paroxysmal atrial tachcardia 4. Urosepsis -pyelonephritis - antibiotic therapy 5. Preserved LVEF 6. CHADS2-VASC: 3 - consider OAC if recurrent/ sustained atrial arrhythmias are seen Bradycardia seen on tele. Reduced amiodarone dose to 200mg BID x 1 week then 200mg PO daily thereafter. She remains on amiodarone taper, short term therapy ok but poor option for longwall foreman management with side effects and risk with alf amio therapy. Will allow her to recover from medical issues then see her back in clinic to further discuss EP study and possible ablation once amiodarone is stopped. Alt. antiarrhythmic therapy includes flecainide, multaq, or propafenone. Multiple abnormal rhythms seen on tele as mentioned above. Will see back in clinic in 6 weeks. Continue PO amiodarone taper as mentioned above upon DC.
[2018-08-13 15:11] VITALS: BP 165/72
[2018-08-13 16:15] LABS: Cytoplasmic (C-ANCA) <1:20 titer (Neg:<1:20); Myeloperoxidase AutoAbs <9.0 U/mL (0.0-9.0); Perinuclear (P-ANCA) <1:20 titer (Neg:<1:20); Proteinase-3 AutoAbs Less than 3.5 U/mL (0.0-3.5)
[2018-08-13] MEDS ORDERED: Amiodarone 200 MG TAB PO SCH (21:00)
--- NOTE | 2018-08-14 14:14 | DIS ---
DATE OF ADMISSION: 08/04/2018 DATE OF DISCHARGE: 08/13/2018 RESIDENT: Dr. Jefferson. ADMITTING ATTENDING: Davide Russell MD. CONSULTATIONS: 1. Case Management. 2. Dr. Ortiz, Cardiology. 3. Dr. Hanson, Electrophysiology. 4. Dr. Stewart, Gastroenterology. 5. Dr. Flaherty, Nephrology. 6. Dr. Langston, Urology. PRIMARY DIAGNOSES: 1. Sepsis secondary to pyelonephritis, proctitis and cystitis, resolved. 2. Atrial flutter. 3. Chronic kidney disease, stage IV. 4. Hypertension. 5. Depression. DISCHARGE MEDICATIONS: 1. Potassium chloride 10 mEq p.o. b.i.d. 2. Amlodipine 10 mg p.o. daily. 3. Sertraline 50 mg p.o. daily. 4. Aspirin 81 mg p.o. daily. 5. Acetaminophen 650 mg p.o. q.4 hour p.r.n. 6. Amiodarone 200 mg p.o. b.i.d. 7. Eliquis 2.5 mg p.o. b.i.d. 8. Levofloxacin 500 mg p.o. q. 2 days, #4. 9. Metronidazole 500 mg p.o. t.i.d., #15. DISCONTINUED MEDICATIONS: 1. Lisinopril 5 mg p.o. b.i.d. 2. Metoprolol succinate 100 mg p.o. b.i.d. HISTORY OF PRESENT ILLNESS AND HOSPITAL COURSE: A 67-year-old female with past medical history of hypertension, heart rate issues, presents to the ED with 1 week history of nausea and vomiting. The patient was in the [facility] ED, was found to have proctitis and pyelonephritis by abdominal CT and transferred. The patient states she has had hard stools and difficulty with BMs, last ones on Friday and Friday. She denies dysuria or polyuria. She reports associated decreased p.o. intake and she has not tolerated any home medications for several days. No upper or lower gastrointestinal bleeding and no fevers or chills at this time. On admission, the patient did have some notable lab values of white blood cell count of 13.7, a creatinine of 1.91 and procalcitonin of 0.19. The patient also had a p-ANCA drawn on 08/08/19o19, that showed that it was less than 120, which would be a negative range. Throughout the hospitalization, the patient's kidney function continued to rise. On day before discharge, it was 3.11, on day of discharge it was 3.00. Dr. Green with Nephrology was consulted and he recommended monitoring the creatinine until it had plateaued or decreased and then he would have close followup with her as an outpatient. In regard to her cardiac disease, Dr. Ortiz with Cardiology was consulted. She was found to be in supraventricular tachycardia associated with atrial flutter. The patient was started om amiodarone and then was consulted with electrophysiology. The patient had intermittent runs of atrial flutter associated with rapid ventricular response and Dr. Hanson with Electrophysiology recommended continued amiodarone therapy with the possible need as an outpatient study to evaluate, if she has further problems. The patient does have a CHADS-VASc score of 3 and he recommended long-term anticoagulation. Eliquis 2.5 mg was initiated for continuation as an outpatient.The patient continued to improve; however did continue to have intermittent episodes of atrial flutter where she would spontaneously convert back to normal sinus rhythm. Dr. Hanson had recommended to continue the amiodarone 200 mg b.i.d. for 2 weeks and then down to 200 mg daily following from that. Dr. Reed with Gastroenterology saw the patient due to the proctitis. The patient does state that she had a colonoscopy 3 months ago and was told to be negative. At this time, he just recommended that she did not need a repeat colonoscopy or any other studies and that he would try to have her followup as an outpatient at [facility] to make any further recommendations. She will close followup with Cardiology as an outpatient for this chronic condition. The patient otherwise is very pleasant, was very thankful for her care and said that she had not felt this well in a long time after we were able to treat her [id number] conditions. Otherwise, the patient tolerated the hospitalization well and was discharged on appropriate condition. DISPOSITION: Stable. DISCHARGE INSTRUCTIONS: 1. Location: She will be discharged to home under the care of herself and her family. 2. Diet: Heart healthy diet and renal diet. 3. Activity: Will be no restrictions, obviously with some fall precautions as well. 4. Followup: Will be with several providers, Dr. Norma Flaherty in next 2 weeks, Dr. Villagomez her primary care doctor in 3 days, Dr[address] Braswell in 2-[address] Bharat Hanson with Electrophysiology in 2-3 weeks as well. 5. We wish this patient best of luck and hope she has no further problems from her chronic conditions. Job ID: [id number] [facility]
--- NOTE | 2018-08-15 13:37 | EKG ---
Test Reason : Blood Pressure : / mmHG Vent. Rate : 134 BPM Atrial Rate : 089 BPM P-R Int : 000 ms QRS Dur : 072 ms QT Int : 310 ms P-R-T Axes : 000 038 -39 degrees QTc Int : 462 ms Supraventricular tachycardia Septal infarct , age undetermined Abnormal ECG Confirmed by ADAM LIMA, FLOYD ([id number]), fan mail editor JAIME GOVEA ([id number]) on 08/15/2018 1:37:28 PM Referred By: Confirmed By:FLOYD MEDINA MD
== END 2018-08-13 17:20 | disposition home or self-care (01) | DRG 871 ==
LOC: ERS 18:04 → ERHOLD 18:45 → 2NO 08-05 12:15
PROVIDERS: ADMIT Family Medicine; ATTEND Family Medicine
DX: A41.9 Sepsis, unspecified organism (principal); N17.0 Acute kidney failure with tubular necrosis; N12 Tubulo-interstitial nephritis, not specified as acute or chronic; I47.1 Supraventricular tachycardia; N18.4 Chronic kidney disease, stage 4 (severe); I48.92 Unspecified atrial flutter; K62.89 Other specified diseases of anus and rectum; F32.9 Major depressive disorder, single episode, unspecified; I12.9 Hypertensive chronic kidney disease with stage 1 through stage 4 chronic kidney disease, or unspecified chronic kidney disease; F41.9 Anxiety disorder, unspecified; E87.6 Hypokalemia; E83.42 Hypomagnesemia; N30.90 Cystitis, unspecified without hematuria
CPT/HCPCS: 36415; 74176; 80048; 80053; 80076; 80202; 80307; 82140; 82274; 82570; 83036; 83520; 83630; 83735; 83930; 83935; 84100; 84145; 84300; 84443; 85025; 85652; 86140; 86256; 87045; 87046; 87324; 87389; 87449; 87899; 93005; 93010; 96361; 96365; 96367; 96375; 96376; J1644; J1650; J1956; J2543; J3370; J3475; J3490; J7050; J7070; Q0162

== ENCOUNTER 2019-08-01 20:22 | Inpatient (IN) | payer MEDICARE ==
--- NOTE | 2019-08-01 20:54 | RAD ---
EXAM: XR Chest 1 View Portable PROVIDED CLINICAL HISTORY: Weakness COMPARISON: 06/25/2019 FINDINGS: Moderate-large left pleural effusion is again noted. Visualized cardiac and mediastinal silhouette ar e unchanged in appearance. Emphysematous changes and atherosclerosis are redemonstrated. Right lung appears clear. No pneumothorax is evident. IMPRESSION: Stable radiographic appearance of the chest.
[2019-08-01 21:33] LABS: #Eosinphils 0.1 thou/uL (0.0-0.7); #Lymphocytes 0.8 thou/uL (1.20-3.40); #Monocytes 0.3 thou/uL (0.11-0.59); %Basophils 0.1 % (0.0-1.0); %Lymphocytes 12.6 % (21.0-51.0); %Monocytes 4.3 % (0.0-10.0); %Neutrophils 81.9 % (42.0-75.0); Hemoglobin 9.5 g/dL (12.0-16.0); Mean Corpuscular HGB CONC 33.1 g/dL (32.0-36.0); Mean Corpuscular Hemoglobin 33.9 pg (27.0-31.0); Mean Platelet Volume 7.6 fL (7.4-10.4); Platelet Count 171 thou/uL (130-400); RBC Distribution Width 13.2 % (11.5-14.5); Red Blood Cell (RBC) Count 2.81 mill/uL (4.20-5.40); White Blood Cell (WBC) Count 6.1 thou/uL (4.8-10.8)
[2019-08-01 21:54] LABS: ALT (SGPT) 24 U/L (8-55); AST (SGOT) 77 U/L (5-34); Albumin 2.9 g/dL (3.4-4.8); Alkaline Phosphatase 145 U/L (40-110); Anion Gap 15 mmol/L (10-20); BUN (Urea Nitrogen) 28 mg/dL (9.8-20.1); Bilirubin, Total 0.4 mg/dL (0.2-1.2); CK (CPK) 75 U/L (29-168); Calc. Creatinine Clearance 0 mL/min (70-130); Calcium 7.8 mg/dL (7.8-10.44); Carbon Dioxide 16 mmol/L (23-31); Chloride 107 mmol/L (98-107); Estimated GFR-MDRD 9; Glucose 95 mg/dL (80-115); Lipase 15 U/L (8-78); Potassium 3.5 mmol/L (3.5-5.1); Protein, Total 5.9 g/dL (6.0-8.3); Sodium 134 mmol/L (136-145)
[2019-08-02] MEDS ORDERED: Acetaminophen 325 MG TAB PO PRN (00:21)
[2019-08-02] MEDS ORDERED: Ondansetron PF 4 MG/2 ML Vial IVP PRN (00:21)
[2019-08-02] MEDS ORDERED: Sodium Chloride 0.9% 1,000 ML IV SCH (00:21)
[2019-08-02] MEDS ORDERED: Ondansetron ODT 4 MG TAB SL PRN (00:21)
[2019-08-02 00:41] VITALS: BMI 17.9
--- NOTE | 2019-08-02 00:48 | PDOC.FPRHP ---
- History of Present Illness Chief Complaint: fall, weakness History of Present Illness: 68 y/o F with pmhx of CKD stage 5, HTN presenting to ER with a GLF from generalized weakness and diarrhea. Pt states she fell earlier in the evening after her legs gave way underneath her. She has been gradually weakening over the past 4 weeks since d/c from hospital for pleura effusion form volume overload form CKD stage 5. Dr. Green suggested pt get graft for future dialysis due to her worsening condition. Pt was scheduled to receive graft on Friday by Dr. Gee. Possibly will have this procedure moved up due to pt's decline in function. C/o Diarrhea that started 07/31 @ 5PM. Pt tolerating Po intake, but feeling very weak. Pt denies current LH, dizziness, CP, or ORTIZ. States she is chronically SOB, on 3 L NC at home. ED course: Pt started on IV NS @ 100 ml/hr consulted CV surg and Nephrology, who plan to come see pt Friday morning to move procedures up one day due to concern for uremia. - Allergies/Adverse Reactions Allergies Allergy/AdvReac Type Severity Reaction Status Date / Time No Known Allergies Allergy Verified 07/28/19 10:04 - Home Medications Medication Instructions Recorded Confirmed Type Amlodipine [Norvasc] 10 mg PO DAILY 08/05/18 08/02/19 History Sertraline HCl 50 mg PO HS 08/05/18 08/02/19 History Carvedilol 1 tab PO BID 07/28/19 08/02/19 History ALPRAZolam 0.25 mg PO TID PRN 08/02/19 08/02/19 History Budesonide 0.5 mg IH BID 08/02/19 08/02/19 History Cyanocobalamin (Vitamin B-12) 1,000 mcg PO DAILY 08/02/19 08/02/19 History [B-12] Folic Acid 1 mg PO DAILY 08/02/19 08/02/19 History Ipratropium/Albuterol Sulfate 0.5 ml INH TID PRN 08/02/19 08/02/19 History [Iprat-Albut 0.5-3(2.5) mg/3 ml] Sodium Bicarbonate 650 mg PO BID 08/02/19 08/02/19 History - History PMHx: CKD stage V, HTN, arrhythmia with HR issues PSHx: none FHx: parents had HTN Social: Quit smoking last year, had smoked for 50 years. Denies etoh or drug use. PCP: Dr. Villagomez - Review of Systems General: reports: weight/appetite/sleep changes, fatigue. denies: fever/chills Eyes: denies: vision changes ENT: denies: nasal congestion Respiratory: reports: shortness of breath, exercise intolerance. denies: cough Cardiovascular: reports: edema. denies: chest pain, paroxysmal nocturnal dyspnea, orthopnea Gastrointestinal: reports: diarrhea. denies: nausea, vomiting Genitourinary: reports: other (makes small amount of urine throughout day). denies: dysuria Skin: denies: rashes Musculoskeletal: reports: swelling. denies: pain Neurological: reports: weakness. denies: seizure - Vital signs BP: 147/70 HR: 68 RR: 18 Tmax: 98.1 Pox: 97% on 3 L nc Wt: 47 kg - Physical Exam Constitutional: NAD, awake, alert and oriented, other (cachectic appearing) HEENT: normocephalic and atraumatic, PERRLA, EOMI, conjunctiva clear, grossly normal vision, grossly normal hearing, MMM, oropharynx clear Neck: supple, FROM, trachea midline, no LAD, other (+ JVD) Heart: RRR, other (3/6 sys murmur loudest over aortic valve BLE pitting edema) Lungs: no respiratory distress, good air movement, no retractions, other (LLL crackles) Abdomen: soft, non-tender, bowel sounds present, no masses/distention, no hernias Musculoskeletal: normal structure, normal tone Neurological: no focal deficit, normal sensation Skin: no rash/lesions, good turgor, capillary refill <2 seconds Heme/Lymphatic: no purpura, no petechia, other (ecchymosis over L elbow) Psychiatric: normal mood and affect, good judgment and insight FMR H&P: Results - Labs Result Diagrams: 08/01/19 21:17 08/02/19 01:59 Lab results: WBC 6.1 thou/uL (4.8-10.8) 08/01/19 21:17 Hgb 9.5 g/dL (12.0-16.0) L 08/01/19 21:17 Hct 28.7 % (36.0-47.0) L 08/01/19 21:17 MCV 102.0 fL (78.0-98.0) H 08/01/19 21:17 Plt Count 171 thou/uL (130-400) 08/01/19 21:17 Neutrophils % 81.9 % (42.0-75.0) H 08/01/19 21:17 Sodium 134 mmol/L (136-145) L 08/01/19 21:17 Potassium 3.5 mmol/L (3.5-5.1) 08/01/19 21:17 Chloride 107 mmol/L (98-107) 08/01/19 21:17 Carbon Dioxide 16 mmol/L (23-31) L 08/01/19 21:17 BUN 28 mg/dL (9.8-20.1) H 08/01/19 21:17 Creatinine 4.74 mg/dL (0.6-1.1) H 08/01/19 21:17 Glucose 95 mg/dL (80-115) 08/01/19 21:17 Calcium 7.8 mg/dL (7.8-10.44) 08/01/19 21:17 Total Bilirubin 0.4 mg/dL (0.2-1.2) 08/01/19 21:17 AST 77 U/L (5-34) H 08/01/19 21:17 ALT 24 U/L (8-55) 08/01/19 21:17 Alkaline Phosphatase 145 U/L (40-110) H 08/01/19 21:17 Creatine Kinase 75 U/L (29-168) 08/01/19 21:17 Serum Total Protein 5.9 g/dL (6.0-8.3) L 08/01/19 21:17 Albumin 2.9 g/dL (3.4-4.8) L 08/01/19 21:17 Lipase 15 U/L (8-78) 08/01/19 21:17 FMR H&P: A/P - Problem List (1) Physical deconditioning Current Visit: Yes Status: Acute Code(s): R53.81 - OTHER MALAISE (2) CKD (chronic kidney disease) Current Visit: No Status: Chronic Code(s): N18.9 - CHRONIC KIDNEY DISEASE, UNSPECIFIED (3) HTN (hypertension) Current Visit: No Status: Chronic Code(s): I10 - ESSENTIAL (PRIMARY) HYPERTENSION - Plan 68 Y/O F with ESRD admitted to med obs for fall and generalized weakness from deconditioning. 1. GLF 2/2 generalized weakness from deconditioning. - Will consult case management for rehab placement after procedures and discussion with family, as pt was wanting to go directly home after leaving hx. - consulted studio camera operator to help with diet. Possible protein calorie malnutrition. 2. CKD stage 5 - To the point in CKD to consider future therapy of ESRD where Dr. Green has planned to start dialysis. - Pt was scheduled to get graft on Friday. Placed in hospital to have graft earlier. Gerard Copeland consulted. - Nephrology, Dr. Green consulted, appreciate recommendations. - Cr 4.74, electrolytes normal 3. Hx of HTN - cause of ESRD - continue home medications 4. Macrocytic anemia - Most likely anemia of chronic disease vs folate or b12 deficiency. - Ordered anemia labs. Code status: full code diet: low protein renal, HH, fluid restrict dvt ppx: SCD's Dispo: stable, admit to med obs for nephrology and CV surg consult. FMR H&P: Upper Level - Plan Date/Time: 08/02/19 0041 I, Missael Jefferson MD, have evaluated this patient and agree with findings/ plan as outlined by brand marketing intern resident. Pertinent changes/additions are listed here. Physical Deconditioning - Recurrent falls - Not open to rehab placement at this time - PT/OT consulted CKD Stage 5 - Desires general surgery for dialysis access placement tomorrow. All other chronic conditions reviewed and medications to be restarted as appropriate. CODE STATUS: FULL CODE PCP: Dr. Villagomez Disposition: Stable, will admit for observation and hopeful discharge tomorrow vs. surgical procedure.
[2019-08-02 02:24] LABS: Iron 48 ug/dL (50-170); Iron Binding Capacity, Total 105 mcg/dL (265-497)
[2019-08-02 02:34] LABS: ALT (SGPT) 21 U/L (8-55); AST (SGOT) 70 U/L (5-34); Albumin 2.7 g/dL (3.4-4.8); Alkaline Phosphatase 127 U/L (40-110); Anion Gap 13 mmol/L (10-20); BUN (Urea Nitrogen) 30 mg/dL (9.8-20.1); Bilirubin, Total 0.4 mg/dL (0.2-1.2); Calc. Creatinine Clearance 8 mL/min (70-130); Calcium 7.7 mg/dL (7.8-10.44); Carbon Dioxide 18 mmol/L (23-31); Chloride 110 mmol/L (98-107); Estimated GFR-MDRD 9; Globulin 2.9 g/dL (2.4-3.5); Glucose 89 mg/dL (80-115); Potassium 3.5 mmol/L (3.5-5.1); Protein, Total 5.6 g/dL (6.0-8.3); Sodium 137 mmol/L (136-145)
[2019-08-02 04:37] LABS: Ferritin 500.15 ng/mL (10-291)
[2019-08-02] MEDS: Budesonide 0.5 MG/2 ML NEB NEB SCH ×2 (07:49→19:56)
[2019-08-02] MEDS: Amlodipine 10 MG TAB PO SCH (08:37)
[2019-08-02] MEDS: Carvedilol 3.125 MG TAB PO SCH ×2 (08:37→17:01)
[2019-08-02] MEDS: Folic Acid 1 MG TAB PO SCH (08:37)
[2019-08-02] MEDS: Cyanocobalamin (Vitamin B-12) 1,000 MCG TAB PO SCH (08:38)
[2019-08-02] MEDS: Sodium Bicarbonate Tab 325 MG TAB PO SCH ×2 (08:38→20:28)
--- NOTE | 2019-08-02 12:59 | HP ---
I have examined the patient and discussed the case with Dr. Ileana Hawkins and agree with her assessment and plan. HISTORY OF PRESENT ILLNESS: Briefly, Ms. Noel is a 68-year-old female with history of CKD stage 5, who presented with generalized weakness, diarrhea, mild volume depletion, and generalized weakness. She is also due for future dialysis and needs a graft placed. We will consult Dr. Gee for this. PHYSICAL EXAMINATION: GENERAL: This morning, she is awake and alert, in no distress. VITAL SIGNS: Her blood pressure is 147/70, pulse rate 68, respirations are 18, she is afebrile, and her pulse ox is 97% on 3 L. GENERAL: She is awake and alert. Quite thin, nearly cachectic appearing. EAR, NOSE, AND THROAT: Moist mucous membranes. NECK: Supple. CARDIAC: Regular rate and rhythm with a grade 2/6 to 3/6 systolic murmur heard best over her aortic valve. LUNGS: Clear without rales or wheezes, but there are few crackles at the left lower lung field. ABDOMEN: Flat and soft without guarding or rebound. MUSCULOSKELETAL: She is a very thin lady, but no focal weakness. NEUROLOGIC: No focal deficits. LABORATORY DATA: CBC; white count is 6100, hemoglobin 9.5, and hematocrit 28.7 with an MCV of 102. Chemistries; sodium 134, potassium 3.5, chloride 107, bicarb 16, BUN 28, and creatinine 4.74. ASSESSMENT: 1. Physical deconditioning. 2. Chronic kidney disease. 3. Hypertension. PLAN: Admit, IV fluids judiciously. Consult dietitian for probable caloric malnutrition. Consult Surgery for placement for her hemodialysis. We will check on her anemia, it appears to be a nutritional deficiency. Job ID: [id number]
[2019-08-03 05:51] LABS: ALT (SGPT) 22 U/L (8-55); AST (SGOT) 70 U/L (5-34); Albumin 2.7 g/dL (3.4-4.8); Alkaline Phosphatase 151 U/L (40-110); Anion Gap 13 mmol/L (10-20); BUN (Urea Nitrogen) 29 mg/dL (9.8-20.1); Bilirubin, Total 0.4 mg/dL (0.2-1.2); Calc. Creatinine Clearance 9 mL/min (70-130); Calcium 7.7 mg/dL (7.8-10.44); Carbon Dioxide 17 mmol/L (23-31); Chloride 109 mmol/L (98-107); Estimated GFR-MDRD 10; Globulin 3.1 g/dL (2.4-3.5); Glucose 90 mg/dL (80-115); Potassium 3.7 mmol/L (3.5-5.1); Protein, Total 5.8 g/dL (6.0-8.3); Sodium 135 mmol/L (136-145)
--- NOTE | 2019-08-03 05:58 | PDOC.FM ---
- Subjective Subjective: Patient doing well this morning. Reports that she discussed with someone from Dr. Gee's staff that her surgery is scheduled around lunch-time today. Patient also reports that she has decided to consider going to rehab. - Objective Vital Signs & Weight: Vital Signs (12 hours) Temp Pulse Resp BP Pulse Ox 08/03/19 03:43 95 08/03/19 03:14 98.5 F 65 16 133/64 95 08/02/19 23:03 98.8 F 62 16 135/67 96 08/02/19 20:05 98.4 F 64 16 145/67 H 100 08/02/19 19:58 96 08/02/19 19:57 96 08/02/19 19:56 96 Weight Admit Weight 47.255 kg Weight 47.255 kg I&O: 08/01/19 08/02/19 08/03/19 06:59 06:59 06:59 Intake Total 700 Balance 700 Result Diagrams: 08/01/19 21:17 08/03/19 05:05 Phys Exam - Physical Examination Constitutional: NAD HEENT: moist MMs, sclera anicteric Neck: supple, full ROM Respiratory: no wheezing slight crackles BLL Cardiovascular: RRR, no significant murmur Gastrointestinal: soft, non-tender Musculoskeletal: no edema, pulses present Neurological: non-focal, moves all 4 limbs Psychiatric: normal affect, A&O x 3 Skin: no rash, normal turgor Dx/Plan (1) Physical deconditioning Code(s): R53.81 - OTHER MALAISE Status: Acute (2) CKD (chronic kidney disease) Code(s): N18.9 - CHRONIC KIDNEY DISEASE, UNSPECIFIED Status: Chronic (3) HTN (hypertension) Code(s): I10 - ESSENTIAL (PRIMARY) HYPERTENSION Status: Chronic - Plan Plan: 68 Y/O F with ESRD admitted to med obs for fall and generalized weakness from deconditioning. #GLF 2/2 generalized weakness from deconditioning. - patient reports this morning that she is agreeable with going to rehab. - PT and OT recommend rehab at this time - Crystal Grower recommends regular diet currently with renal diet long term care social worker #CKD stage 5 - To the point in CKD to consider future therapy of ESRD where Dr. Green has planned to start dialysis. - Pt scheduled to get graft today. Dr. Gee consulted. - Nephrology, Dr. Green consulted, appreciate recommendations. #Hx of HTN - cause of ESRD - continue home medications #Macrocytic anemia - low iron with high ferritin, likely anemia of chronic disease - continue home folic acid Code status: full code diet: clear liquids this am in preparation for sx today dvt ppx: SCD's Dispo: stable, anticipate sx today with Dr. Gee. CM consulted to assist with post acute screen for rehab. Possible d/c today pending surgery and rehab placement
[2019-08-03] MEDS: Budesonide 0.5 MG/2 ML NEB NEB SCH ×2 (06:34→18:22)
[2019-08-03] MEDS: Folic Acid 1 MG TAB PO SCH (08:26)
[2019-08-03] MEDS: Cyanocobalamin (Vitamin B-12) 1,000 MCG TAB PO SCH (08:26)
[2019-08-03] MEDS: Sodium Bicarbonate Tab 325 MG TAB PO SCH (08:26)
[2019-08-03] MEDS: Amlodipine 10 MG TAB PO SCH (08:27)
[2019-08-03] MEDS: Carvedilol 3.125 MG TAB PO SCH ×2 (08:27→18:14)
[2019-08-03] MEDS ORDERED: CEFAZOLIN 2 GM in Premix Bag 1 BAG IVPB SCH (09:15)
--- NOTE | 2019-08-03 09:38 | CON ---
DATE OF CONSULTATION: CONSULTING PHYSICIAN: Norma Flaherty MD REQUESTING PHYSICIAN: ER physician and [facility] REASON FOR CONSULTATION: Advanced renal failure. IMPRESSION: 1. Advanced chronic kidney disease, stage 5, close to initiation of hemodialysis. 2. Generalized weakness. 3. Metabolic acidosis. PLAN: 1. The patient reviewed for access creation tomorrow; however, given the fact that this patient is already inpatient and having diarrhea, weakness, and possible symptoms suggestive of incipient uremia, we will likely secure a tunneled dialysis catheter in addition to the long-term AV fistula creation and initiate hemodialysis during this hospitalization. 2. Renally dose all medications and avoid potentially nephrotoxic agents. 3. Further management to be dependent on the clinical course. HISTORY OF PRESENT ILLNESS: History is that of a 68-year-old female patient with advanced renal failure, chronic kidney disease, stage 5, who presented here with generalized weakness, diarrhea, not eating very well, who is in the process of initiating dialysis. The patient noted on presentation to be very weak and metabolically acidotic. As a result of these findings, decision has been taken to involve Renal in the management of this case. PAST MEDICAL HISTORY: Significant for chronic kidney disease, stage 5 and hypertension. FAMILY HISTORY: No family history significantly related to presenting illness. SOCIAL HISTORY: No alcohol. The patient quit tobacco use last year. REVIEW OF SYSTEMS: As documented in the body of the history. All the other systems were reviewed and found not to be significantly related to presenting illness. PHYSICAL EXAMINATION: GENERAL: The patient was found to be ill-looking. VITAL SIGNS: Noted with the following vital signs; afebrile, temperature 97.8, pulse 65, respiratory rate of 14, O2 saturation of 96%, blood pressure 129/73. HEENT: Unremarkable. CARDIOVASCULAR: First and second heart sounds were heard. RESPIRATORY: Clear to auscultation. DIGESTIVE SYSTEM: Revealed a benign abdomen with positive bowel sounds. EXTREMITIES: No peripheral edema. SKIN: No new gross rash. LYMPHATICS: No peripheral lymphadenopathy. SUMMARY: A 68-year-old female patient with advanced chronic kidney disease, presented here with generalized weakness and diarrhea. Thank you for this consultation. We will follow with you. Job ID: [id number]
--- NOTE | 2019-08-03 10:24 | CON ---
DATE OF CONSULTATION: REASON FOR CONSULTATION: Renal failure. HISTORY OF PRESENT ILLNESS: Ms. Noel is the patient seen by me previously in the clinic for renal failure and placement of hemodialysis catheter and fistula. She was scheduled for Friday, but did not stop taking her anticoagulant, so was rescheduled for today. She was admitted to the hospital on Friday for dizziness and a fall. No injuries were found and the patient states that her only residual symptom is that her tailbone is sore. She states that she was trying to get up from the toilet after having diarrhea and just felt weak and her legs gave way. She has not had any fevers or chills. She is chronically short of breath on home oxygen, but states that she can breathe while lying flat. Chest x-ray showed a large left pleural effusion. She was admitted to [facility] with respiratory distress and fluid overload about a month ago, and had a thoracentesis performed. She is right-handed and on chronic anticoagulation for atrial fibrillation. She states that she last took this on either Friday or Friday. PAST MEDICAL HISTORY: COPD with ongoing tobacco abuse, but trying to quit; hypertension; renal failure; heart failure; chronic atrial fibrillation; anxiety; and depression. PAST SURGICAL HISTORY: Colonoscopy with removal of tubular adenoma in 01/2017 and thoracentesis recently at the [facility]. FAMILY HISTORY: Hypertension. SOCIAL HISTORY: The patient does have a longstanding history of smoking, but is trying to quit. She does not drink alcohol or use illicit drugs. She reports a rash with clonidine. OUTPATIENT MEDICATIONS: Include; 1. Amlodipine. 2. Sertraline. 3. Carvedilol. 4. Alprazolam. 5. Budesonide. 6. Vitamin B12. 7. Folate. 8. DuoNeb. 9. Sodium bicarbonate. She was taking Eliquis, but has been off this for several days and was taking aspirin, but has also not been taking that for several days. When I saw her in the clinic, she was also on amiodarone and is not clear whether she is still taking that. She has temazepam and alprazolam for p.r.n. use. PHYSICAL EXAMINATION: GENERAL: Reveals a frail, elderly woman, in no acute distress. HEENT: Unremarkable. VITAL SIGNS: Reviewed. She has not been afebrile since her admission. Heart rate is stable in the 60s. Blood pressure is mildly elevated at 147/75, and she is saturating 98% on 3 L, but drops into the 80s on room air. NECK: Supple without lymphadenopathy or thyroid nodules. HEART: Regular in its rate and rhythm. I do not appreciate any rubs or gallops. She has markedly diminished breath sounds on the left, but is fairly clear on the right, although diminished in the base and distant throughout. ABDOMEN: Soft, nontender, and nondistended. EXTREMITIES: Warm and well perfused. She unfortunately has a large antecubital IV with some bruising. No edema in her arms or legs. NEUROLOGIC: No focal deficits. PSYCHIATRIC: Alert, oriented, and appropriate. LABORATORY DATA: White count is normal at 6.1, hematocrit chronically low at 28.7, and platelets 171. BUN and creatinine are 29 and 4.45. Bicarb is slightly low at 17, but potassium is 3.7, AST is mildly elevated at 70 and alkaline phosphatase is mildly elevated at 151. Albumin is low at 2.7 and folate is low at 6.7, iron is low at 48 and TIBC is low at 105, ferritin is elevated at 500. Chest x-ray on admission showed a large left pleural effusion. ASSESSMENT: Renal failure with fluid overload with need for institution of dialysis. I had planned on a tunneled hemodialysis catheter and left arteriovenous fistula. Unfortunately, she has a large IV in the area where I was planning to place the fistula. I have asked the nurse to remove this immediately and place an IV below the wrist. Since the patient has small veins to begin with, I preferred to let this area heal and come back to do her fistula at a later date. Therefore, I will plan on doing just a tunneled dialysis catheter today and bring her back in about 2 weeks for a left arteriovenous fistula versus graft. I have informed her store management trainee, Dr. Norma Flaherty of the operative plan. I have asked the nurse to post the sign for getting lab draws and IVs above the wrist on either hand and for getting blood pressures on the left. Job ID: [id number]
[2019-08-03] MEDS ORDERED: Glycopyrrolate 0.2 MG/ML 5 ML SYRINGE ONE (10:35)
[2019-08-03] MEDS ORDERED: Lidocaine 1% PF 5 ML VIAL ONE (10:35)
[2019-08-03] MEDS ORDERED: PROPOFOL 200 MG/20 ML VIAL ONE (10:35)
--- NOTE | 2019-08-03 11:56 | PRG ---
DATE OF SERVICE: 08/03/2019 Ms. Noel is resting quietly in bed, in no distress. She was seen in consultation by Dr. Gee. She plans to do a tunneled dialysis catheter today and bring her back in about 2 weeks for a left AV fistula versus graft. This is necessitated by the placement of her peripheral IV, which disturbed her original site for surgery. We will continue to follow with Dr. Green. Job ID: [id number]
[2019-08-03] MEDS ORDERED: Protamine Sulfate 50 MG/5 ML VIAL ONE (12:46)
[2019-08-03] MEDS ORDERED: Bupivacaine 0.25% HCL 30 ML VIAL ONE (12:46)
[2019-08-03] MEDS ORDERED: Lidocaine 1% w/Epinephrine 1:100K 20 ML VIAL ONE (12:46)
[2019-08-03] MEDS ORDERED: Sodium Chloride 0.9% 10 ML ONE (12:46)
[2019-08-03] MEDS ORDERED: Heparin 10,000 UNITS/1 ML VIAL ONE (12:46)
[2019-08-03] MEDS ORDERED: Heparin 5,000 UNITS/ML VIAL ONE (12:46)
--- NOTE | 2019-08-03 14:28 | RAD ---
PORTABLE CHEST ONE VIEW: 08/03/19 at 1:54 p.m. HISTORY: Hemodialysis catheter replacement. FINDINGS/IMPRESSION: Comparison made with exam of 08/01/2019. Moderate sized left pleural effusion is again seen. There has been interval placement of a right side d dialysis catheter with tip in the projection of the SVC. No pneumothoraces are seen. POS: TPC
--- NOTE | 2019-08-03 17:52 | PRG ---
DATE OF SERVICE: 08/03/2019 SUBJECTIVE: The patient was seen and examined today, status post tunneled dialysis catheter placement, doing okay, noted with the following vital signs. OBJECTIVE: VITAL SIGNS: Afebrile, temperature 98.5, pulse 71, respiratory rate of 20, O2 saturation 96% with blood pressure 136/84. The patient wants to rest today prior to initiating dialysis. HEENT: Unremarkable. CARDIOVASCULAR: First and second heart sounds were heard. RESPIRATORY: Clear to auscultation. DIGESTIVE: Revealed a benign abdomen and positive bowel sounds. EXTREMITIES: No peripheral edema. SKIN: No new gross rash. LYMPHATICS: No peripheral lymphadenopathy. IMPRESSION: 1. Chronic kidney disease, stage 5. 2. Metabolic acidosis. 3. Generalized weakness. PLAN: 1. The patient to be initiated on dialysis tomorrow. 2. Outpatient dialysis placement to be coordinated with the help of Case Management. 3. Further management to be dependent on the clinical course. 4. We will discontinue the sodium bicarbonate as the patient will not be on dialysis. Job ID: [id number]
--- NOTE | 2019-08-04 06:02 | PDOC.FM ---
- Subjective Subjective: Patient doing well this morning. Discussed plans to begin dialysis today and that we will be working with CM for an outpatient dialysis bed and for rehab placement. Patient agreeable with plan of care. - Objective Vital Signs & Weight: Vital Signs (12 hours) Temp Pulse Resp BP Pulse Ox 08/04/19 03:15 98.5 F 61 16 128/64 96 08/03/19 22:55 98.1 F 65 16 138/66 97 08/03/19 20:21 61 144/67 H 08/03/19 20:00 97 08/03/19 19:33 97.9 F 60 16 133/74 97 08/03/19 18:22 58 L Weight Admit Weight 47.255 kg Weight 47.255 kg I&O: 08/02/19 08/03/19 08/04/19 06:59 06:59 06:59 Intake Total 700 555 Balance 700 555 Result Diagrams: 08/01/19 21:17 08/04/19 05:15 Phys Exam - Physical Examination Constitutional: NAD frail appearing HEENT: moist MMs, sclera anicteric Neck: supple, full ROM Respiratory: no wheezing, clear to auscultation bilateral Cardiovascular: RRR, no significant murmur Gastrointestinal: soft, non-tender Musculoskeletal: no edema, pulses present Neurological: non-focal, moves all 4 limbs Psychiatric: normal affect, A&O x 3 Skin: no rash, normal turgor Dx/Plan (1) Physical deconditioning Code(s): R53.81 - OTHER MALAISE Status: Acute (2) CKD (chronic kidney disease) Code(s): N18.9 - CHRONIC KIDNEY DISEASE, UNSPECIFIED Status: Chronic (3) HTN (hypertension) Code(s): I10 - ESSENTIAL (PRIMARY) HYPERTENSION Status: Chronic - Plan Plan: 68 Y/O F with ESRD admitted to med obs for fall and generalized weakness from deconditioning. #GLF 2/2 generalized weakness from deconditioning. - patient is agreeable with going to rehab. - PT and OT recommend rehab at this time. CM sent forms to rehab 08/02 - Small Offset Printer recommends regular diet currently with renal diet operating room technologist #CKD stage 5 - To the point in CKD to consider future therapy of ESRD where Dr. Green has planned to start dialysis. - Pt got tunneled dialysis cath 08/[address] Gee, plans to put in L arteriovenous fistula in 2 weeks - Nephrology, Dr. Green consulted, plans to begin HD today; will need CM to help find patient an outpatient HD bed #Hx of HTN - cause of ESRD - continue home medications #Macrocytic anemia - low iron with high ferritin, likely anemia of chronic disease - continue home folic acid Code status: full code diet: Renal low-protein dvt ppx: SCD's Dispo: stable, anticipate HD today with Dr. Green. CM consulted to assist with finding outpatient HD bed. Rehab forms sent, pending possible placement.
[2019-08-04 06:14] LABS: ALT (SGPT) 10 U/L (8-55); AST (SGOT) 68 U/L (5-34); Albumin 2.4 g/dL (3.4-4.8); Alkaline Phosphatase 132 U/L (40-110); Anion Gap 12 mmol/L (10-20); BUN (Urea Nitrogen) 30 mg/dL (9.8-20.1); Bilirubin, Total 0.3 mg/dL (0.2-1.2); Calc. Creatinine Clearance 9 mL/min (70-130); Calcium 7.5 mg/dL (7.8-10.44); Carbon Dioxide 18 mmol/L (23-31); Chloride 109 mmol/L (98-107); Estimated GFR-MDRD 10; Globulin 2.8 g/dL (2.4-3.5); Glucose 104 mg/dL (80-115); Potassium 3.7 mmol/L (3.5-5.1); Protein, Total 5.2 g/dL (6.0-8.3); Sodium 135 mmol/L (136-145)
[2019-08-04] MEDS: Budesonide 0.5 MG/2 ML NEB NEB SCH ×2 (07:22→18:26)
[2019-08-04 07:34] LABS: HBSAB Concentration 1.36 mIU/mL; HBSAg Index 0.15 S/CO (0-0.99); Hep B Core Total Ab Non-Reactive (NonReactive); Hep B Core Total Index 0.12 S/CO (0-0.79); Hep B Surf AB Non-Reactive (NonReactive); Hep B Surf Ag Non-Reactive S/CO (NonReactive); Hep C IgG Ab Non-Reactive (NonReactive)
[2019-08-04] MEDS: Carvedilol 3.125 MG TAB PO SCH ×2 (08:10→17:10)
[2019-08-04] MEDS: Cyanocobalamin (Vitamin B-12) 1,000 MCG TAB PO SCH (08:10)
[2019-08-04] MEDS: Folic Acid 1 MG TAB PO SCH (08:10)
[2019-08-04] MEDS: Amlodipine 10 MG TAB PO SCH (08:10)
--- NOTE | 2019-08-04 09:04 | PDOC.OP ---
Operative Note - Operative Note Operative Note: DATE OF PROCEDURE: 08/03/2019 PROCEDURE: Placement of tunneled hemodialysis catheter with ultrasound and fluoroscopic guidance. SURGEON: Yesica Gee M.D. PREOPERATIVE DIAGNOSIS: Chronic renal failure. POSTOPERATIVE DIAGNOSIS: Chronic renal failure. HISTORY: Patient with renal failure who now requires dialysis. A tunneled hemodialysis catheter for institution of dialysis has been requested by the patients goring cutter. PROCEDURE: After informed consent was obtained and appropriate preoperative antibiotics were administered, the patient was taken to the Operating Room, placed in the supine position and monitored anesthesia care was administered. The neck and chest were prepped and draped in a standard sterile fashion and the patient placed in Trendelenburg position. A sterile ultrasound probe was used to identify the patent compressible right IJ vein which was accessed under direct ultrasound guidance. A wire was threaded through the needle and confirmed by ultrasound to be within the patent compressible vessel with the tip in the vena cava by fluoroscopy. Local anesthesia was infused to the skin and subcutaneous tissues of the right neck and chest. An infraclavicular incision was made and a catheter tunneled from the infraclavicular to the right IJ access site. The right IJ was sequentially dilated over the wire following which a dilator and sheath were placed over the wire and the dilator and wire removed leaving the sheath in place. The catheter was tunneled through the sheath which was then split and removed leaving the catheter in place. This was confirmed by fluoroscopy to be in good position in the superior vena cava with no kinking of the course of the catheter. Both ports easily aspirated dark venous nonpulsatile blood and easily flushed without resistance. Heparin was instilled to the quantity specified on the hub, and the hub was secured to the skin with 3-0 nylon sutures. The skin incision at the neck was closed in two layers with 4-0 Monocryl suture and Dermabond dressings were placed. The skin at the exit site was snugged up around the catheter with 4-0 Monocryl suture and Dermabond was placed there as well. Once the Dermabond was dry, a Biopatch and Tegaderm dressing was placed at the exit site. The patient was taken to Recovery in good condition. Estimated blood loss was minimal. There were no complications. There were no specimens.
[2019-08-04] MEDS ORDERED: Heparin 10,000 UNITS/ 10 ML VIAL ONE (10:57)
[2019-08-04] MEDS: Apixaban 2.5 MG TAB PO SCH ×2 (11:00→20:11)
--- NOTE | 2019-08-04 11:55 | PRG ---
DATE OF SERVICE: 08/04/2019 Ms. Noel had her tunneled hemodialysis catheter placed yesterday. She is resting quietly this morning, in no distress. She is to begin hemodialysis, and we will continue to follow with the Nephrology Service. Job ID: [id number]
--- NOTE | 2019-08-04 16:14 | PDOC.GSPN ---
Surgery Progress Note: Subj - Subjective Narrative: No complaints. States that she is tolerating dialysis. I will plan to schedule fistula placement in around 2 weeks time. Signing off for now. Surgery Progress Note: Obj - Vital signs Vital signs: Vital Signs - Most Recent Temp Pulse Resp BP Pulse Ox 98.0 F 59 L 18 132/79 97 08/04/19 11:55 08/04/19 11:55 08/04/19 11:55 08/04/19 11:55 08/04/19 11:55 Surgery Progress Note: Results - Labs Result Diagrams: 08/01/19 21:17 08/04/19 05:15 Lab results: Laboratory Results - last 24 hr 08/04/19 08/04/19 05:15 06:46 Sodium 135 L Potassium 3.7 Chloride 109 H Carbon Dioxide 18 L Anion Gap 12 BUN 30 H Creatinine 4.40 H Estimated GFR (MDRD) 10 Glucose 104 Calcium 7.5 L Total Bilirubin 0.3 AST 68 H ALT 10 Alkaline Phosphatase 132 H Serum Total Protein 5.2 L Albumin 2.4 L Globulin 2.8 Albumin/Globulin Ratio 0.9 L Hep Bs Antigen Non-Reactive Hep Bs Antibody Non-Reactive Hep Bs Antibody Index 1.36 Hep B Core Total Ab Non-Reactive Hepatitis C Antibody Non-Reactive
[2019-08-04] MEDS ORDERED: Apixaban 2.5 MG TAB PO SCH (21:00)
[2019-08-05 05:50] LABS: ALT (SGPT) Less than 7 U/L (8-55); AST (SGOT) 52 U/L (5-34); Albumin 2.4 g/dL (3.4-4.8); Alkaline Phosphatase 123 U/L (40-110); Anion Gap 9 mmol/L (10-20); BUN (Urea Nitrogen) 24 mg/dL (9.8-20.1); Bilirubin, Total 0.3 mg/dL (0.2-1.2); Calc. Creatinine Clearance 11 mL/min (70-130); Calcium 7.5 mg/dL (7.8-10.44); Carbon Dioxide 23 mmol/L (23-31); Chloride 107 mmol/L (98-107); Estimated GFR-MDRD 13; Globulin 2.7 g/dL (2.4-3.5); Glucose 93 mg/dL (80-115); Potassium 3.6 mmol/L (3.5-5.1); Protein, Total 5.1 g/dL (6.0-8.3); Sodium 135 mmol/L (136-145)
--- NOTE | 2019-08-05 06:12 | PDOC.FM ---
- Subjective Subjective: Patient doing well this morning. Reportedly had 1hr of HD yesterday, tolerated it well. Discussed plans of working with CM for rehab bed placement/outpatient dialysis bed placement. Patient agreeable with plan of care. - Objective Vital Signs & Weight: Vital Signs (12 hours) Temp Pulse Resp BP Pulse Ox 08/05/19 03:19 98.2 F 62 18 134/63 95 08/04/19 23:15 98.6 F 66 16 125/63 97 08/04/19 20:23 93 L 08/04/19 19:55 98.5 F 72 16 131/67 93 L 08/04/19 18:26 62 12 94 L Weight Admit Weight 47.255 kg Weight 47.255 kg I&O: 08/03/19 08/04/19 08/05/19 06:59 06:59 06:59 Intake Total 322 477 5104 Balance 887 911 0884 Result Diagrams: 08/01/19 21:17 08/05/19 05:14 Phys Exam - Physical Examination Constitutional: NAD frail appearing HEENT: moist MMs, sclera anicteric Neck: supple, full ROM Respiratory: no wheezing, clear to auscultation bilateral Cardiovascular: RRR, no significant murmur Gastrointestinal: soft, non-tender Musculoskeletal: no edema, pulses present Neurological: non-focal, moves all 4 limbs Lymphatic: no nodes Psychiatric: normal affect, A&O x 3 Skin: normal turgor Deviation from normal: senile purpura Dx/Plan (1) Physical deconditioning Code(s): R53.81 - OTHER MALAISE Status: Acute (2) CKD (chronic kidney disease) Code(s): N18.9 - CHRONIC KIDNEY DISEASE, UNSPECIFIED Status: Chronic (3) HTN (hypertension) Code(s): I10 - ESSENTIAL (PRIMARY) HYPERTENSION Status: Chronic - Plan Plan: 68 Y/O F with ESRD admitted to med obs for fall and generalized weakness from deconditioning. #GLF 2/2 generalized weakness from deconditioning. - patient is agreeable with going to rehab. - PT and OT recommend rehab at this time. CM sent forms to rehab 08/02 - Woodworking Craftsman recommends regular diet currently with renal diet long term care administrator #CKD stage 5 - Dr. Green has planned to start dialysis, first dialysis session on 08/03 went well per patient - Pt got tunneled dialysis cath 08/[address] Gee, plans to put in L arteriovenous fistula in 2 weeks - Nephrology, Dr. Green consulted; will need CM to help find patient an outpatient HD bed #Hx of HTN - cause of ESRD - continue home medications #Macrocytic anemia - low iron with high ferritin, likely anemia of chronic disease - continue home folic acid Code status: full code diet: Renal low-protein dvt ppx: SCD's Dispo: stable, CM consulted to assist with finding outpatient HD bed. Rehab forms sent, pending possible placement.
[2019-08-05] MEDS: Budesonide 0.5 MG/2 ML NEB NEB SCH (07:26)
[2019-08-05] MEDS: Amlodipine 10 MG TAB PO SCH ×2 (07:57→11:20)
[2019-08-05] MEDS: Carvedilol 3.125 MG TAB PO SCH (07:57)
[2019-08-05] MEDS: Apixaban 2.5 MG TAB PO SCH (07:57)
[2019-08-05] MEDS: Cyanocobalamin (Vitamin B-12) 1,000 MCG TAB PO SCH ×2 (07:58→11:20)
[2019-08-05] MEDS: Aspirin 81 mg Enteric Coated Tablet PO SCH ×2 (07:58→11:19)
[2019-08-05] MEDS: Folic Acid 1 MG TAB PO SCH ×2 (07:58→11:20)
--- NOTE | 2019-08-05 08:51 | PRG ---
DATE OF SERVICE: SUBJECTIVE: The patient was seen and examined . Noted to be hemodynamically stable. OBJECTIVE: HEENT: Unremarkable. CARDIOVASCULAR: First and second heart sounds were heard. RESPIRATORY: Clear to auscultation. DIGESTIVE SYSTEM: Benign abdomen with positive bowel sounds. EXTREMITIES: No peripheral edema. SKIN: No new gross rash. LYMPHATICS: No peripheral lymphadenopathy. IMPRESSION: 1. End-stage renal disease, initiated on dialysis today. 2. Metabolic acidosis . PLAN: 1. The patient is going to be dialyzed . 2. Outpatient dialysis placement with the help of Case Management . 3. Further management to be dependent on the clinical course. Job ID: [id number]
[2019-08-05] MEDS ORDERED: Heparin 10,000 UNITS/ 10 ML VIAL ONE (09:27)
[2019-08-05 13:18] VITALS: BP 130/67; TEMP 97.6
--- NOTE | 2019-08-05 15:27 | PRG ---
DATE OF SERVICE: 08/05/2019 ADDENDUM: This as an addendum to the note of Dr. Josette Ernst. Ms. Noel underwent an uneventful dialysis this morning and the surgery is signing off on her fistula. Dr. Green is also following the patient with us. She will likely need rehab for a week or so, but is otherwise nearing time for discharge. Job ID: [id number]
--- NOTE | 2019-08-05 17:07 | PRG ---
DATE OF SERVICE: 08/05/2019 SUBJECTIVE: The patient was seen and examined at dialysis, seems to be doing very well. Hemodynamically stable. OBJECTIVE: HEENT: Unremarkable. CARDIOVASCULAR SYSTEM: First and second heart sounds were heard. RESPIRATORY SYSTEM: Clear to auscultation. DIGESTIVE SYSTEM: Revealed a benign abdomen with positive bowel sounds. EXTREMITIES: No peripheral edema. SKIN: No new gross rash. LYMPHATICS: No peripheral lymphadenopathy. IMPRESSION: Chronic kidney disease, stage 5/end-stage renal disease. PLAN: 1. The patient is likely to be discharged to rehab today. 2. We will continue with dialysis and outpatient dialysis placement at the rehab tomorrow. 3. Further management to be dependent on the clinical course. Job ID: [id number]
--- NOTE | 2019-08-07 14:04 | EKG ---
Test Reason : Blood Pressure : / mmHG Vent. Rate : 067 BPM Atrial Rate : 066 BPM P-R Int : 000 ms QRS Dur : 072 ms QT Int : 384 ms P-R-T Axes : 000 -08 270 degrees QTc Int : 405 ms Sinus rhythm Low voltage QRS Septal infarct , age undetermined Abnormal ECG Confirmed by HUGO GLYNN DO ([id number]), content editor JAIME GOVEA ([id number]) on 08/07/2019 2:04:46 PM Referred By: Confirmed By:HUGO GLYNN DO
== END 2019-08-05 14:15 | DRG 673 ==
LOC: ERS 20:22 → SURG A 23:24 → OBSVTOIN 08-03 15:12
PROVIDERS: ADMIT Emergency Medicine; ATTEND Emergency Medicine
PROC: 0JH63XZ Insertion of Tunneled Vascular Access Device into Chest Subcutaneous Tissue and Fascia, Percutaneous Approach (ICD-10-PCS; principal; 2019-08-03)
PROC: 02HV33Z Insertion of Infusion Device into Superior Vena Cava, Percutaneous Approach (ICD-10-PCS; 2019-08-03)
PROC: B5181ZA Fluoroscopy of Superior Vena Cava using Low Osmolar Contrast, Guidance (ICD-10-PCS; 2019-08-03)
PROC: B548ZZA Ultrasonography of Superior Vena Cava, Guidance (ICD-10-PCS; 2019-08-03)
PROC: 5A1D70Z Performance of Urinary Filtration, Intermittent, Less than 6 Hours Per Day (ICD-10-PCS; 2019-08-03)
DX: I12.0 Hypertensive chronic kidney disease with stage 5 chronic kidney disease or end stage renal disease (principal); N18.6 End stage renal disease; E87.2 Acidosis; I48.20 Chronic atrial fibrillation, unspecified; R64 Cachexia; Z68.1 Body mass index [BMI] 19.9 or less, adult; D63.1 Anemia in chronic kidney disease; R53.81 Other malaise; F32.9 Major depressive disorder, single episode, unspecified; E87.6 Hypokalemia; R29.6 Repeated falls; E86.9 Volume depletion, unspecified; Z79.01 Long term (current) use of anticoagulants
CPT/HCPCS: 36415; 71045; 80053; 82550; 82607; 82728; 82746; 83540; 83550; 83690; 84484; 85025; 86704; 86706; 86803; 87340; 90935; 93005; 94640; C1752; C1769; G0257; J0690; J1644; J2001; J2704; J2720; J7620; J7626; S0020

== ENCOUNTER 2019-08-06 14:41 | Outpatient (CLI) | payer MEDICARE ==
--- NOTE | 2019-08-06 15:21 | ULT ---
ULTRASOUND RETROPERITONEUM COMPLETE: (RENAL) DATE: 08/06/2019 HISTORY: 68-year-old female with chronic kidney disease and "abnormal bladder scan with inability to drain wit h catheter" COMPARISON: Renal ultrasound of 08/24/2018 FINDINGS: There is a moderate amount of free fluid throughout the abdominal cavity and pelvis, new since the pr ior study. Urinary bladder volume is currently 50 mL. There is an echogenic focus partially visualized in the an terior portion of the bladder, which may or may not represent the Rodriguez catheter mentioned in the history. Right kidney: 8 x 5 x 4 cm. Left kidney: 9 x 4.5 x 5 cm. No hydronephrosis. Diffusely mildly increased renal parenchymal echogenicity consistent with medical renal disease. Small bilateral renal cysts. The largest is 1.5 cm Several small bilateral renal cysts. The largest is 1.5 cm on the left. IMPRESSION: 1. Chronic kidney disease. 2. No hydronephrosis. 3. Urinary bladder volume 50 mL 4. Moderate volume of ascites.
== END 2019-08-06 14:42 | disposition home or self-care (01) ==
LOC: ULT 14:41
PROVIDERS: ATTEND Internal Medicine
DX: R93.41 Abnormal radiologic findings on diagnostic imaging of renal pelvis, ureter, or bladder (principal); R33.9 Retention of urine, unspecified; I12.9 Hypertensive chronic kidney disease with stage 1 through stage 4 chronic kidney disease, or unspecified chronic kidney disease; N18.9 Chronic kidney disease, unspecified; D63.1 Anemia in chronic kidney disease; R18.8 Other ascites; Z99.2 Dependence on renal dialysis
CPT/HCPCS: 76770

== ENCOUNTER 2019-09-21 18:03 | Observation (INO) | payer MEDICARE ==
[2019-09-21 19:20] LABS: ALT (SGPT) 24 U/L (8-55); AST (SGOT) 64 U/L (5-34); Albumin 2.6 g/dL (3.4-4.8); Alkaline Phosphatase 284 U/L (40-110); Anion Gap 16 mmol/L (10-20); BUN (Urea Nitrogen) 15 mg/dL (9.8-20.1); Bilirubin, Total 0.4 mg/dL (0.2-1.2); Calc. Creatinine Clearance 0 mL/min (70-130); Calcium 8.2 mg/dL (7.8-10.44); Carbon Dioxide 24 mmol/L (23-31); Chloride 100 mmol/L (98-107); Estimated GFR-MDRD 16; Globulin 3.3 g/dL (2.4-3.5); Glucose 86 mg/dL (80-115); Potassium 4.5 mmol/L (3.5-5.1); Protein, Total 5.9 g/dL (6.0-8.3); Sodium 135 mmol/L (136-145)
--- NOTE | 2019-09-21 19:20 | PDOC.FPRHP ---
- History of Present Illness Chief Complaint: Diarrhea History of Present Illness: 68 yo pt w/ pmh of ESRD on Dialysis, comes in from outside ER w/ complaint of generalized weakness and diarrhea. Pt being admitted due to elevated trop.Pt feels weak and bloated. Pt had one episode of vomting today which was new. Reports having loose stools everytime she eats. Pt denies any blood in the stool. Doesn't notice pattern with certain foods making it worse or better. Pt has ulcers on buttocks. Pt denies any urinary sx's. Denies any burning when peeing. Denies any fever or chills. Pt denies any chest pain or SOB. Pt denies any headaches, dizziness, or lightheadness. Last colonoscopy was last year and reported only one polyp. Pt wears oxygen at home. sleeps with 2L at home. - Allergies/Adverse Reactions Allergies Allergy/AdvReac Type Severity Reaction Status Date / Time No Known Allergies Allergy Verified 08/20/19 19:56 - Home Medications Medication Instructions Recorded Confirmed Type Sertraline HCl 50 mg PO HS 08/05/18 09/21/19 History Carvedilol 1 tab PO QAM 07/28/19 09/21/19 History Cyanocobalamin (Vitamin B-12) 1,000 mcg PO DAILY 08/02/19 09/21/19 History [B-12] Folic Acid 1 mg PO DAILY 08/02/19 09/21/19 History Apixaban [Eliquis] 2.5 mg PO BID 08/03/19 09/21/19 History Aspirin [Ecotrin Low Strength] 81 mg PO DAILY 08/03/19 09/21/19 History Comments: Pt not taking amlodpine, budesonide or albuterol inhaler. Below is the reviewed medications the patient is taking at this time. potassium ER 10, folic acid 1mg, Eliquis 2.5 mg, ASA 81 mg, aMiodarone 200mg, Carvedilol 3.125 mg BID, - History PMHx: ESRD on hemodialysis, HTN, arrhythmia with HR issues, Likely underlying COPD on 2L of O2 at home PSHx: none FHx: parents had HTN Social: Quit smoking last year, had smoked for 50 years. Denies etoh or drug use. PCP koki. Pt full code. - Review of Systems General: reports: weight/appetite/sleep changes, fatigue. denies: fever/chills , night sweats ENT: denies: nasal congestion Respiratory: reports: exercise intolerance (pt reports being weak). denies: cough, congestion, shortness of breath Cardiovascular: denies: chest pain, edema Gastrointestinal: reports: nausea, vomiting, diarrhea, other (reports bloatnig) . denies: constipation, abdominal pain Skin: denies: rashes, lesions Musculoskeletal: denies: pain, swelling Neurological: reports: weakness. denies: numbness Psychological: denies: anxiety, depression - Vital signs BP: [130/67] HR: [69] RR: [18] Tmax: [98.2] Pox: [100]% on [2L] Wt: [51kg] - Physical Exam Constitutional: NAD -Constitutional: Pt thin appearing. Pt tires easily when talking throughout interview. HEENT: normocephalic and atraumatic, grossly normal vision, grossly normal hearing Neck: supple, FROM, no JVD, no thyromegaly Heart: RRR, normal S1/S2, no murmurs/rubs/gallops, pulses present, no edema Lungs: CTAB, no respiratory distress, good air movement, no wheezing Abdomen: non-tender, bowel sounds present -Abdomen: Pt belly very tight and distended. No redness. Cardenas and Mcburney negative Musculoskeletal: ROM grossly normal Neurological: no focal deficit, normal sensation Skin: no rash/lesions, good turgor, capillary refill <2 seconds Heme/Lymphatic: no unusual bruising or bleeding Psychiatric: normal mood and affect, good judgment and insight, intact recent and remote memory FMR H&P: Results - Labs Result Diagrams: 09/21/19 18:51 - EKG Interpretation EKG: Low QRS voltage, No T wave abnormality, Nonspecific EKG - Radiology Interpretation Chest x-ray Status: image reviewed by me, report reviewed by me (Interval improvement w/o complete resolution left pleural effusion) FMR H&P: A/P - Problem List (1) Abdominal distension Current Visit: Yes Status: Acute Code(s): R14.0 - ABDOMINAL DISTENSION ( GASEOUS) (2) Diarrhea Current Visit: Yes Status: Acute Code(s): R19.7 - DIARRHEA, UNSPECIFIED (3) ESRD (end stage renal disease) on dialysis Current Visit: Yes Status: Acute Code(s): N18.6 - END STAGE RENAL DISEASE; Z99.2 - DEPENDENCE ON RENAL DIALYSIS (4) Physical deconditioning Current Visit: No Status: Acute Code(s): R53.81 - OTHER MALAISE (5) HTN (hypertension) Current Visit: No Status: Chronic Code(s): I10 - ESSENTIAL (PRIMARY) HYPERTENSION - Plan Severe Abdominal Distention -Likely cause of abdominal pain/bloating. NTTP -Renal US from 08/06/2019 showed moderate ascites. -Ordered CT abdomen pelvis for further evaluation. -AST elevated but around baseline from previous visits -zofran/bentyl for pain relief -Lipase pending -Hep panel done last visit and negative Chronic Diarrhea -Pt had colonoscopy a year ago reported normal. Unsure of outpt workup. -Will get stool studies and cx. -Possibly would benefit from colestid or cholestyramine as diarrhea associated w / eating Elevated Trop -Trop at outside ER .036, trended down to .01 once here -Likely from ESRD and demand ESRD on dialysis -Neprho consulted- Dr. Green, follow recs. Continue regular schedule HTN -continue home meds Hx Arrhythmia -Continue home amiodarone. continue home meds -EKG stable presumptive COPD -Pt has extensive smoking history. On 2L of O2 at home. No sign of exacerbation at this time. -Duonebs prn. Anemia of Chronic Dz -continue home meds Generalized Weakness -PT/OT consulted -CM consulted for d/c planning DVT ppx: on eliquis GERD ppx: Famotidine Dispo: At this time trops trending down. Will further evaluate abdominal distention as seems to be main pt problem. FMR H&P: Upper Level - Plan Date/Time: 09/21/191917 I, [], have evaluated this patient and agree with findings/plan as outlined by internet marketing executive resident. Pertinent changes/additions are listed here. Addendum - Attending - Attending Attestation Date/Time: 09/21/19 1689 I personally evaluated the patient and discussed the management with Dr. Ely I agree with the History, Examination, Assessment and Plan documented above with any addition or exceptions noted below 68 yo female with h/o ESRD on HD, aflutter/SVT presents c/o weakness and diarrhea. Patient reports that she has had the diarrhea for the last year; occurs after meals and feels like she is getting progressively more weak. Also has noted abdominal distension for the last 1-2 days. Denies any abd pain, N/V, fever/chills. Does report having a colonoscopy 1 year ago which was normal. Has been told in the past that the diarrhea is related to her ESRD. Per patient, has not seen GI in past. PMH/PSH/ Meds/SH reviewed and agree with resident's documentation. Afebrile BP 142/69 P69 RR18 Exam repeated by me and agree with resident's findings. Labs: H/H= 10.4/33.9, Yea=828, Qr=272, K=4.5, BUN/Cr=15/2.91, Gluc=86, trop I 0.036, <0.010 , lactic acid= 2.3. CT abd- Cirrhotic liver with large volume of ascites; possible lesion along hepatic dome. A/P: 1) Weakness- multifactorial; will obtain stool studies. If negative consider cholestyramine to slow passage through intestines. Nutrition consult due to weight loss and hypoalbuminemia. 2 ) ESRD- continue HD as scheduled. 3) Cirrhosis- no prior diagnosis; Hep Band C negative in past. Possible GROSSMAN; consider GI consult. Consider paracentesis 4) Possible liver lesion- consider additional imaging with CT or MRI.
[2019-09-21] MEDS ORDERED: Ondansetron ODT 4 MG TAB SL PRN (20:51)
[2019-09-21] MEDS ORDERED: Acetaminophen 325 MG TAB PO PRN ×2 (20:51→21:12)
[2019-09-21] MEDS ORDERED: Ondansetron PF 4 MG/2 ML Vial IVP PRN ×2 (20:51→21:12)
[2019-09-21 20:54] VITALS: BMI 19.5
[2019-09-21] MEDS ORDERED: Acetaminophen 650 MG Suppository PR PRN (21:12)
[2019-09-21] MEDS ORDERED: Ondansetron ODT 4 MG TAB PO PRN (21:12)
[2019-09-21] MEDS: Famotidine 20 MG TAB PO SCH (22:10)
[2019-09-21 22:17] LABS: Troponin I Less than 0.010 ng/mL (< 0.028)
--- NOTE | 2019-09-21 22:52 | CT ---
CT ABDOMEN AND PELVIS WITHOUT CONTRAST: 09/21/19 COMPARISON: 08/04/18 HISTORY: Generalized abdominal pain and distension. TECHNIQUE: Multiple contiguous axial images were obtained in a CT of the abdomen and pelvis without contrast. Sa gittal and coronal reformats were performed. FINDINGS: The liver has a macronodular appearance. There is a hypodense region along the hepatic dome which is nonspecific and cannot be adequately characterized without contrast. The gallbladder is contracted an d there appears to be at least one calcified gallstone in the gallbladder. There is a large amount of ascites. No free air is seen in the abdomen. The kidneys are small and atrophic. Calcifications in the hilar region of both kidneys are seen whic h may represent nonobstructing tiny calcifications measuring up to 2 mm in size. The adrenal glands, spleen, and pancreas are grossly unremarkable, although evaluation is limited without IV contrast. Scattered diverticula are seen in the colon. The small bowel is normal in caliber. Atherosclerotic ca lcifications are seen in the aorta. No abdominal or pelvic lymphadenopathy are seen. The reproductive organs are unremarkable. Degenerative changes are seen in the spine. There are small bilateral pleural effusions with adjacent atelectasis. There appears to be a superficial lesion along the right chest wall. IMPRESSION: 1. Cirrhosis with large volume ascites. Possible lesion along the hepatic dome. An MRI of the ab domen or a CT of the abdomen per liver mass protocol is recommended for exclusion of a hepatocellular carcinoma. 2. Diverticulosis. 3. Cholelithiasis. 4. Nonobstructing bilateral renal calcifications. 5. There is likely a superficial exophytic lesion along the right chest wall. Correlate with phy sical examination. 6. Bilateral pleural effusions. POS: EMILE
[2019-09-22] MEDS ORDERED: Dicyclomine 10 MG CAP PO PRN (01:02)
[2019-09-22 03:00] LABS: #Basophils 0.1 thou/uL (0.0-0.2); #Lymphocytes 1.1 thou/uL (1.20-3.40); #Monocytes 0.3 thou/uL (0.11-0.59); #Neutrophils 3.3 thou/uL (1.40-6.50); %Basophils 1.6 % (0.0-1.0); %Lymphocytes 22.8 % (21.0-51.0); %Monocytes 6.5 % (0.0-10.0); %Neutrophils 68.2 % (42.0-75.0); Mean Corpuscular HGB CONC 32.2 g/dL (32.0-36.0); Mean Corpuscular Hemoglobin 32.6 pg (27.0-31.0); Mean Platelet Volume 7.2 fL (7.4-10.4); Platelet Count 108 thou/uL (130-400); RBC Distribution Width 14.9 % (11.5-14.5); Red Blood Cell (RBC) Count 2.77 mill/uL (4.20-5.40); White Blood Cell (WBC) Count 4.9 thou/uL (4.8-10.8)
[2019-09-22 03:06] LABS: INR-International Normal Ratio 1.2; PTT 46.7 SEC (22.9-36.1); Prothrombin Time 15.6 SEC (12.0-14.7)
[2019-09-22 03:21] LABS: ALT (SGPT) 23 U/L (8-55); AST (SGOT) 55 U/L (5-34); Albumin 2.4 g/dL (3.4-4.8); Alkaline Phosphatase 259 U/L (40-110); Anion Gap 11 mmol/L (10-20); BUN (Urea Nitrogen) 16 mg/dL (9.8-20.1); Bilirubin, Total 0.3 mg/dL (0.2-1.2); Calc. Creatinine Clearance 14 mL/min (70-130); Calcium 8.1 mg/dL (7.8-10.44); Carbon Dioxide 28 mmol/L (23-31); Chloride 101 mmol/L (98-107); Estimated GFR-MDRD 15; Globulin 3.1 g/dL (2.4-3.5); Glucose 107 mg/dL (80-115); Potassium 4.2 mmol/L (3.5-5.1); Protein, Total 5.5 g/dL (6.0-8.3); Sodium 136 mmol/L (136-145)
--- NOTE | 2019-09-22 07:03 | PDOC.FM ---
- Subjective Subjective: Pt reports having gas and diapers changed this AM. Unsure if diarrhea or not. She denies N/V. C/o abd swelling causing discomfort. Pt admits to drinking 2-3 glasses of wine nightly, but quit a year ago. She did this for many years. - Objective MAR Reviewed: Yes Vital Signs & Weight: Vital Signs (12 hours) Temp Pulse Resp BP Pulse Ox 09/22/19 03:54 98.2 F 70 20 148/64 H 96 09/21/19 20:54 98.2 F 69 18 142/69 H 100 Weight Weight 51.691 kg I&O: 09/20/19 09/21/19 09/22/19 06:59 06:59 06:59 Intake Total 240 Output Total 0 Balance 240 Result Diagrams: 09/22/19 02:47 09/22/19 02:47 Phys Exam - Physical Examination Constitutional: NAD HEENT: moist MMs Neck: supple, full ROM Respiratory: clear to auscultation bilateral Cardiovascular: RRR Gastrointestinal: soft, positive bowel sounds distended with fluid wave. Musculoskeletal: no edema, pulses present Neurological: non-focal, moves all 4 limbs Psychiatric: normal affect, A&O x 3 Skin: no rash, normal turgor Dx/Plan (1) Cirrhosis of liver with ascites Code(s): K74.60 - UNSPECIFIED CIRRHOSIS OF LIVER; R18.8 - OTHER ASCITES Status : Acute (2) Diarrhea Code(s): R19.7 - DIARRHEA, UNSPECIFIED Status: Acute (3) ESRD (end stage renal disease) on dialysis Code(s): N18.6 - END STAGE RENAL DISEASE; Z99.2 - DEPENDENCE ON RENAL DIALYSIS Status: Acute (4) Physical deconditioning Code(s): R53.81 - OTHER MALAISE Status: Acute (5) HTN (hypertension) Code(s): I10 - ESSENTIAL (PRIMARY) HYPERTENSION Status: Chronic - Plan Plan: Severe Abdominal Distention, with Cirrhosis and ascites -Likely cause of abdominal pain/bloating. NTTP -Renal US from 08/06/2019 showed moderate ascites. -CT abd: large volume ascites, pos lesion on dome of liver, Diverticulosis. MRI recommended. -AST elevated but around baseline from previous visits -zofran/bentyl for pain relief -Lipase 10 -Hep panel done last visit and negative - DDX: autoimmune hepatitis, hepatic mass. - Pt may benefit from paracentesis - ordered AFP Chronic Diarrhea -Pt had colonoscopy a year ago reported normal. Unsure of outpt workup. -Will get stool studies and cx. Pending -Possibly would benefit from colestid or cholestyramine as diarrhea associated w / eating - Possible GI consult Elevated Trop -Trop at outside ER .036, trended down to .01 once here -Likely from ESRD and demand ESRD on dialysis -Neprho consulted- Dr. Green, follow recs. Continue regular schedule HTN -continue home meds Hx Arrhythmia -Continue home amiodarone. continue home meds -EKG stable presumptive COPD -Pt has extensive smoking history. On 2L of O2 at home. No sign of exacerbation at this time. -Duonebs prn. Anemia of Chronic Dz -continue home meds Generalized Weakness -PT/OT consulted -CM consulted for d/c planning DVT ppx: on eliquis GERD ppx: Famotidine Dispo: At this time trops trending down. Will further evaluate abdominal distention as seems to be main pt problem. A/P - Problem (1) Cirrhosis of liver with ascites Current Visit: Yes Code(s): K74.60 - UNSPECIFIED CIRRHOSIS OF LIVER; R18.8 - OTHER ASCITES Status: Acute (2) Diarrhea Current Visit: Yes Code(s): R19.7 - DIARRHEA, UNSPECIFIED Status: Acute (3) ESRD (end stage renal disease) on dialysis Current Visit: Yes Code(s): N18.6 - END STAGE RENAL DISEASE; Z99.2 - DEPENDENCE ON RENAL DIALYSIS Status: Acute (4) Physical deconditioning Current Visit: No Code(s): R53.81 - OTHER MALAISE Status: Acute (5) HTN (hypertension) Current Visit: No Code(s): I10 - ESSENTIAL (PRIMARY) HYPERTENSION Status: Chronic Addendum - Attending - Attending Attestation Date/Time: 09/22/19 7163 I personally evaluated the patient and discussed the management with Dr. Hawkins. I agree with the History, Examination, Assessment and Plan documented above with any addition or exceptions noted below. Will order CT abdomen w/ contrast liver protocol. MRI contraindicated 2/2 ESRD. US guided paracentesis with fluid studies by IR. GI consultation for possible new onset cirrhosis vs liver mass.
[2019-09-22] MEDS: Folic Acid 1 MG TAB PO SCH (08:37)
[2019-09-22] MEDS: Aspirin 81 mg Enteric Coated Tablet PO SCH (08:37)
[2019-09-22] MEDS: Potassium Chloride 10 MEQ TAB PO SCH ×2 (08:37→17:19)
[2019-09-22] MEDS: Cyanocobalamin (Vitamin B-12) 1,000 MCG TAB PO SCH (08:37)
[2019-09-22] MEDS: Carvedilol 3.125 MG TAB PO SCH (08:38)
[2019-09-22] MEDS: Amiodarone 200 MG TAB PO SCH (08:38)
[2019-09-22] MEDS: Apixaban 2.5 MG TAB PO SCH ×2 (08:38→20:50)
[2019-09-22] MEDS ORDERED: Heparin 10,000 UNITS/ 10 ML VIAL ONE (08:53)
[2019-09-22] MEDS ORDERED: Iopamidol 370 76% 100 ML VIAL ONE (11:10)
[2019-09-22] MEDS ORDERED: Sodium Bicarbonate 2.5 MEQ/5 ML VIAL ONE (13:28)
[2019-09-22] MEDS ORDERED: Lidocaine 1% PF 5 ML VIAL ONE (13:29)
--- NOTE | 2019-09-22 14:26 | ULT ---
Ultrasound-guided paracentesis: HISTORY: Symptomatic ascites FINDINGS: Informed consent obtained prior to the procedure. Preprocedural imaging demonstrated intrap eritoneal free fluid. An area was marked in the Right lower quadrant , and then meticulously prepped and draped in normal s terile fashion and anesthetized with 1% buffered lidocaine. With direct sonographic guidance, a 19-gauge needle and 5 [place] Yueh catheter were advanced into the abdomen. After the return of fluid, the catheter was advanced, and the needle was removed. Approximately 6 L of clear straw-colored fluid was aspirated. The introducer sheath was removed, and hemostasis was achieved with direct pressure. A dry sterile dressing was placed. The patient tolerated the procedure well and without immediate complication. IMPRESSION: Technically successful ultrasound-guided paracentesis.
--- NOTE | 2019-09-22 15:30 | CT ---
CT ABDOMEN WITH AND WITHOUT IV CONTRAST: DATE: 09/22/2019. PROVIDED CLINICAL HISTORY: Possible liver mass. FINDINGS: Correlation is made with the CT examination dated 09/21/2019. Partially visualized bilateral pleural fluid with adjacent passive atelectasis. Stellate diminished attenuation involving the right hepatic lobe near the dome is redemonstrated on t he noncontrast series. On the arterial phase and venous phase imaging, there is a somewhat persisten t though less conspicuous area of somewhat relative diminished attenuation with respect to the remain mirian of the liver. A cirrhotic morphology of the contour of the liver is redemonstrated. No definite focal hyperenhancement on the arterial phase within the hepatic parenchyma. The spleen, kidneys, and adrenal glands demonstrate no significant abnormality. The degree of free i ntraperitoneal fluid is diminished with respect to prior but remains moderate. There is no bowel dil atation or free air apparent. A portion of the distal stomach in the region of the antrum appears so mewhat thickened and irregular on the arterial phase, though this does not definitely persist on the additional phases and was not seen on the prior examination and is likely artifactual. There is extensive vascular calcification with at least moderate stenosis involving the superior mese nteric artery origin. The osseous structures demonstrate no concerning lytic or blastic lesions. There is diffuse fluid de nsity within the subcutaneous adipose layer compatible with anasarca. IMPRESSION: Abnormal, somewhat stellate hypodensity involving the right hepatic lobe near the dome without enhanc ing abnormality. Followup abdominal MRI in 3-6 months is recommended. POS: [facility]
[2019-09-22 16:11] LABS: Fluid, Protein 2.4 g/dL (Not Available)
[2019-09-22 16:37] LABS: RBC Count-Automated (BF) 11 /cumm; WBC/Nucleated-Auto (BF) 33 uL
[2019-09-22 16:38] LABS: BF Color Yellow; Body Fluid Source Ascites Body Fluid; Clarity Hazy (Clear); Tube # EDTA
[2019-09-22 17:02] LABS: BF Segmented Neutrophils 6 %; Cell Count Non Hematic 83 %; Lymphocytes 11 %
[2019-09-22] MEDS ORDERED: Albumin 25% 25 GM/100 ML BOT IVPB SCH (17:38)
--- NOTE | 2019-09-22 17:57 | CON ---
DATE OF CONSULTATION: 09/22/2019 CONSULTING PHYSICIAN: Norma Flaherty MD REQUESTING PHYSICIAN: of Family Medicine. REASON FOR CONSULTATION: Need for maintenance hemodialysis. IMPRESSION: 1. End-stage renal disease on Friday, Friday, Friday schedule. 2. Failure to thrive. 3. Abdominal distention, query cause. 4. Persistent diarrhea. PLAN: 1. There is no emergent indication for renal replacement therapy. In order to keep this patient on current schedule, we will likely do a short dialysis session today. 2. Consider having this patient on a regular diet as the patient is very malnourished. 3. We will defer to the Gastroenterology team. The patient may benefit from cholestyramine. 4. Avoid dairy products for now as the patient has had diarrhea for quite some time now because of possibility of secondary lactose intolerance. 5. Further management to be dependent on the clinical course. HISTORY OF PRESENT ILLNESS: A 68-year-old female patient with end-stage renal disease, hemodialysis dependent, who was recently initiated on dialysis, but has been struggling lately with nutritional status. The patient claimed to have good appetite, but every time she eats it goes right through her. She complains of abdominal distention and generalized debility. As a result of this, the patient was admitted and the need for continued maintenance hemodialysis necessitated the involvement of the Renal team. PAST MEDICAL HISTORY: Significant for; 1. End-stage renal disease. 2. Hypertension. 3. Cardiac arrhythmia. 4. COPD. MEDICATIONS: Reviewed and as documented on [employer]. ALLERGIES: FAMILY HISTORY: Not significantly related to presenting illness. SOCIAL HISTORY: The patient lives at home. No alcohol. No tobacco. No illicit drug use. PHYSICAL EXAMINATION: GENERAL: The patient was found to be cachectic. VITAL SIGNS: Noted with the following vital signs Afebrile, temperature 98.2, pulse 63, respiratory rate of 18, O2 saturations 98%, blood pressure 135/60 to 169/79. HEENT: Unremarkable. CARDIOVASCULAR: First and second heart sounds were heard. RESPIRATORY: Clear to auscultation. EXTREMITIES: Showed some peripheral edema, especially in the left lower extremity. DIGESTIVE: Revealed somewhat distended abdomen with presence of ascites. In summary, a 68-year-old female patient, who has been having some difficulty with nutritional status and abdominal distention. Thank you for this consultation. We will follow with you. Job ID: [id number]
--- NOTE | 2019-09-22 18:26 | CON ---
DATE OF CONSULTATION: 09/22/2019 REASON FOR CONSULTATION: Ascites and possible liver mass. HISTORY OF PRESENT ILLNESS: Mary Kate Noel is a 68-year-old woman with a history of COPD on home oxygen at night, long history of tobacco abuse, and hypertension. She saw my colleague, Dr. Orellana for screening colonoscopy back in March 2017, was found to have pancolonic diverticulosis and a single small tubular adenoma, which was completely removed. She reports no known prior history of liver disease or hepatitis. Just within the past couple of months, she has progressed with her renal failure to the point of starting hemodialysis. She is getting this Friday, Friday, and Friday. She says that she has some issues with hypotension during dialysis and they have been unable to pull fluid over this same time frame over about the past month. She has had progressive abdominal distention. She also reports several months of change in bowel habits toward chronic diarrhea. She says her bowel movements are always loose and urgent, though nonbloody. They are occurring 2 to 3 times per day. She has tried Imodium, which did not really seem to help much. She presented to the hospital yesterday complaining of weakness, continued diarrhea, and this progressive abdominal distention. CT of the abdomen initially without contrast demonstrated nodularity of the liver as well as a nonspecific hypodensity at the hepatic dome, so she underwent a contrast CT earlier today and this again showed a stellate hypodensity, but without any contrast enhancement in the hepatic dome. This is deemed indeterminate and followup scan in three to six-month interval was suggested. She had AFP level drawn, which is normal at 2.5. She then underwent an ultrasound-guided paracentesis of 6 L of hazy yellow fluid with only 33 wbc's. Fluid albumin and cytology pending. Her abdominal distention is much better now. Her abdomen is essentially flat. She is not having any current shortness of breath. She still feels somewhat weak and complains of the diarrhea. REVIEW OF SYSTEMS: Full review of systems including constitutional, head, eyes, ears, nose, throat, GI, , cardiovascular, respiratory, musculoskeletal, and neurologic systems is negative except as noted in the HPI. PAST MEDICAL HISTORY: Hypertension, hyperlipidemia, anxiety, COPD on home oxygen at night, and end-stage renal disease, recently started hemodialysis Friday, Friday, and Friday. Tobacco abuse, evidently quit smoking last year. Alcohol abuse, quit alcohol about one year ago. Colon polyp removed, March 2017. Colonic diverticulosis. FAMILY HISTORY: Negative for GI or liver illness or malignancy that she knows. SOCIAL HISTORY: She quit smoking and alcohol last year. ALLERGIES: NO KNOWN DRUG ALLERGIES. OUTPATIENT MEDICATIONS: 1. Sertraline. 2. Carvedilol. 3. Vitamin B12. 4. Folic acid. 5. Eliquis 2.5 mg b.i.d. 6. Aspirin 81 mg daily. PHYSICAL EXAMINATION: VITAL SIGNS: Temperature 97.6, pulse 71, blood pressure 107/51, and 99% oxygen saturation on 2 L nasal cannula. GENERAL: Frail, thin 68-year-old woman, lying in bed comfortably, in no distress. MENTAL: She is alert and fully oriented. Pleasant and conversational. She can give a detailed coherent history. SKIN: No jaundice. No rashes were palpable and note that, she has a gluteal pressure ulcers, these were not examined by me today. HEENT: Eyes, no scleral icterus. Extraocular movements intact. ENT, mucous membranes moist. No oral lesions. LYMPH: No submandibular or supraclavicular lymphadenopathy. THYROID: Nontender to palpation. HEART: Regular rate and rhythm. LUNGS: Clear to auscultation bilaterally. ABDOMEN: Flat. Bowel sounds are present. Soft and nontender to palpation throughout. EXTREMITIES: No peripheral edema. NEURO: Cranial nerves 2 through 12 intact bilaterally. No focal deficits. No asterixis. LABORATORY STUDIES: WBC 4.9, hemoglobin 9.0, platelets 108, and MCV 101. INR 1.2. Sodium 136, potassium 4.2, BUN 16, and creatinine 3.12. Total bilirubin 0.3, alkaline phosphatase 259, AST 55, ALT 23, and albumin 2.4. BNP is elevated to 658. AFP is 2.5. Ammonia only 18 and lipase only 10. August 2019 labs did show negative serologies for hepatitis B and C. Ferritin was elevated to 500. Paracentesis fluid studies from this admission showed only 33 wbc's and total protein 2.4. Fluid albumin and cytology are pending. IMAGING STUDIES: CT of the abdomen as detailed in the HPI. ASSESSMENT AND PLAN: 1. Chronic diarrhea. This has been going on for several months, nonbloody, only 2 to 3 bowel movements per day, but quite urgent. Nothing explanatory on her last colonoscopy in March 2017. I would not consider repeating endoscopic examination at this point. Stool studies have been ordered including Clostridium difficile and stool culture and O and P, and I would await that result. 2. Cirrhosis. This is based on nodular appearance of the liver on imaging as well as thrombocytopenia and development of ascites. Note, she had a history of fairly heavy alcohol use until last year. She had a negative viral hepatitis serologies in the recent past. We will expand the liver lab workup to include autoimmune markers, iron studies, hemochromatosis genetic profile, alpha-1 antitrypsin. Suspect this may just represent steatohepatitis, alcoholic versus nonalcoholic. 3. Ascites, new onset over the past month. The patient has developed new ascites over the past month in conjunction with starting hemodialysis. Note that, she describes her urine output as minimal. Ascites is likely secondary to her renal failure with contribution from portal hypertension. We were probably unable to use any diuretics. Fluid management will have to consist of low-sodium diet and pulling fluid during dialysis if able. If this is not satisfactory, the patient may need periodic paracentesis, we will have to see. Note, the ascites fluid studies are still pending cytology and albumin, so cannot calculate serum ascites albumin gradient right now. 4. Liver lesion, hepatic dome, this is unable to be completely characterized on noncontrast and then contrast CT. I discussed with the patient possible benign or malignant etiologies. I note the AFP level is normal. We will in addition get CEA and CA-19-9 levels. The patient will need interval imaging followup, with contrast and cross sectional imaging in a three-month interval. Also awaiting fluid cytology. Thank you for the consultation. Please call anytime with questions or concerns. Job ID: [id number]
[2019-09-22] MEDS: Famotidine 20 MG TAB PO SCH (20:50)
[2019-09-23 05:09] LABS: Iron 28 ug/dL (50-170); Iron Binding Capacity, Total 63 mcg/dL (265-497)
[2019-09-23 05:25] LABS: CEA, Serum 7.55 ng/mL (< or = 5.0); Ferritin 520.48 ng/mL (10-291)
--- NOTE | 2019-09-23 07:27 | PDOC.FM ---
- Subjective Subjective: Pt states she had difficulty breathing yesterday immediately after the paracentesis. She reports feeling much more comfortable with the fluid removed from paracentesis and HD. Pt states she does not want to go to a rehab facility as she has everything at home (hospital bed, bedside toilet, and a helper) She would like to go home. No acute overnight events. - Objective MAR Reviewed: Yes Vital Signs & Weight: Vital Signs (12 hours) Temp Pulse Resp BP BP Pulse Ox 09/23/19 06:57 97.6 F 63 16 132/60 96 09/23/19 03:23 97.6 F 66 16 117/59 L 94 L 09/22/19 20:46 98 F 67 17 109/56 L 96 Weight Admit Weight 51.691 kg Weight 50.349 kg I&O: 09/22/19 09/23/19 09/24/19 06:59 06:59 06:59 Intake Total 240 1300 Output Total 0 0 Balance 240 1300 Result Diagrams: 09/23/19 10:24 09/23/19 10:24 Phys Exam - Physical Examination Constitutional: NAD HEENT: moist MMs Neck: no JVD, supple Respiratory: no wheezing, clear to auscultation bilateral Cardiovascular: RRR, no rub Gastrointestinal: soft, non-tender, no distention, positive bowel sounds Musculoskeletal: pulses present, edema present (Pitting edema to LE's. ) Neurological: non-focal, moves all 4 limbs Psychiatric: normal affect, A&O x 3 Skin: no rash, cap refill <2 seconds Dx/Plan (1) Cirrhosis of liver with ascites Code(s): K74.60 - UNSPECIFIED CIRRHOSIS OF LIVER; R18.8 - OTHER ASCITES Status : Acute (2) Diarrhea Code(s): R19.7 - DIARRHEA, UNSPECIFIED Status: Acute (3) ESRD (end stage renal disease) on dialysis Code(s): N18.6 - END STAGE RENAL DISEASE; Z99.2 - DEPENDENCE ON RENAL DIALYSIS Status: Acute (4) Physical deconditioning Code(s): R53.81 - OTHER MALAISE Status: Acute (5) HTN (hypertension) Code(s): I10 - ESSENTIAL (PRIMARY) HYPERTENSION Status: Chronic - Plan Plan: Severe Abdominal Distention, with Cirrhosis and ascites -Likely cause of abdominal pain/bloating. NTTP -Renal US from 08/06/2019 showed moderate ascites. -CT abd: large volume ascites, pos lesion on dome of liver, Diverticulosis. MRI recommended. Pt has ESRD on HD cannot receive MRI contrast. -AST elevated but around baseline from previous visits -zofran/bentyl for pain relief -Lipase 10 - GI consulted: appreciate recommendations. -Hep panel done last visit and negative - DDX: autoimmune hepatitis, hepatic mass, alcoholic/non-alcoholic cirrhosis, vs renal failure with portal HTN component. - US guided Paracentesis performed on 09/21, 6 L removed. Pt given albumin post procedure. - AFP wnl, CEA elevated at 7.55, Ca-19-9 pending Chronic Diarrhea -Pt had colonoscopy a year ago reported normal. Dr. Craven consulted with GI, appreciate recs. No scope at this time indicated. -Will get stool studies and cx. Pending Elevated Trop -Trop at outside ER .036, trended down to .01 once here -Likely from ESRD and demand ESRD on dialysis -Neprho consulted- Dr. Green, follow recs. Continue regular schedule HTN -continue home meds Hx Arrhythmia -Continue home amiodarone. continue home meds -EKG stable presumptive COPD -Pt has extensive smoking history. On 2L of O2 at home. No sign of exacerbation at this time. -Duonebs prn. Anemia of Chronic Dz -continue home meds Generalized Weakness -PT/OT consulted -CM consulted for d/c planning - Pt adamant about going home upon D/C. Previous etoh use Pt has hx of 3 glasses of wine nightly, ceased this activity one year ago. DVT ppx: on eliquis GERD ppx: Famotidine Dispo: observation. GI and nephrology consulted, following recs Addendum - Attending - Attending Attestation Date/Time: 09/23/19 1762 I personally evaluated the patient and discussed the management with Dr. Hawkins. I agree with the History, Examination, Assessment and Plan documented above with any addition or exceptions noted below. EGD tomorrow per GI. Feeling better after paracentesis. Will defer final decision to nephro but gadolinium contrast likely contraindicated due to risk for nephrogenic systemic fibrosis.
[2019-09-23] MEDS: Carvedilol 3.125 MG TAB PO SCH (08:41)
[2019-09-23] MEDS: Cyanocobalamin (Vitamin B-12) 1,000 MCG TAB PO SCH (08:41)
[2019-09-23] MEDS: Potassium Chloride 10 MEQ TAB PO SCH ×2 (08:41→16:34)
[2019-09-23] MEDS: Folic Acid 1 MG TAB PO SCH (08:41)
[2019-09-23] MEDS: Amiodarone 200 MG TAB PO SCH (08:41)
[2019-09-23] MEDS: Apixaban 2.5 MG TAB PO SCH ×2 (08:41→20:36)
[2019-09-23] MEDS: Aspirin 81 mg Enteric Coated Tablet PO SCH (08:41)
[2019-09-23 10:48] LABS: Hemoglobin 9.9 g/dL (12.0-16.0); Platelet Count 115 thou/uL (130-400)
[2019-09-23 11:01] LABS: ALT (SGPT) 20 U/L (8-55); AST (SGOT) 61 U/L (5-34); Albumin 2.4 g/dL (3.4-4.8); Alkaline Phosphatase 229 U/L (40-110); Anion Gap 11 mmol/L (10-20); BUN (Urea Nitrogen) 12 mg/dL (9.8-20.1); Bilirubin, Total 0.4 mg/dL (0.2-1.2); Calc. Creatinine Clearance 15 mL/min (70-130); Calcium 7.8 mg/dL (7.8-10.44); Carbon Dioxide 25 mmol/L (23-31); Chloride 97 mmol/L (98-107); Estimated GFR-MDRD 17; Globulin 2.5 g/dL (2.4-3.5); Glucose 97 mg/dL (80-115); Potassium 4.2 mmol/L (3.5-5.1); Protein, Total 4.9 g/dL (6.0-8.3); Sodium 129 mmol/L (136-145)
[2019-09-23 11:08] LABS: INR-International Normal Ratio 1.5; Prothrombin Time 17.6 SEC (12.0-14.7)
[2019-09-23 11:09] LABS: PTT 41.4 SEC (22.9-36.1)
--- NOTE | 2019-09-23 12:29 | PRG ---
DATE OF SERVICE: 09/23/2019 SUBJECTIVE: The patient was seen and noted with the following vital signs. OBJECTIVE: VITAL SIGNS: Afebrile. Temperature 97.9, pulse 64, respiratory rate of 16, O2 saturation of 96%, and blood pressure of 130/62. HEENT: Unremarkable. CARDIOVASCULAR: First and second heart sounds were heard. RESPIRATORY: Clear to auscultation. DIGESTIVE: Revealed a benign abdomen. EXTREMITIES: Showed improved peripheral edema. SKIN: No new gross rash. LYMPHATICS: No peripheral lymphadenopathy. IMPRESSION: 1. End-stage renal disease, on hemodialysis. 2. Liver cirrhosis, query cause. 3. Gross ascites, status post large volume paracentesis. 4. Failure to thrive/moderate malnutrition. PLAN: 1. The patient to continue dialysis as per normal schedule, more or less gentle dialysis. 2. Adjust the diet to reflect malnutrition, therefore we will change this patient's diet to regular diet. 3. Further management to be dependent on the clinical course. Job ID: [id number]
--- NOTE | 2019-09-23 14:35 | PRG ---
DATE OF SERVICE: 09/23/2019 SUBJECTIVE: Ms. Noel feels much better after having had paracentesis. She has had no diarrhea that she was admitted. The fluid studies are negative for evidence of spontaneous bacterial peritonitis. Additional fluid studies including the fluid albumin are pending. The fluid total protein is 2.4. Her iron saturation is not significantly elevated. Her CEA level was noted to be elevated at 7.5. AFP was 2.5. INR 1.5. OBJECTIVE: VITAL SIGNS: Temperature 97.9, pulse 64, blood pressure 130/62. GENERAL: She is in no acute distress. Alert and oriented x3. LUNGS: Clear to auscultation bilaterally. HEART: Regular rate and rhythm without murmur. ABDOMEN: Soft, nontender, and nondistended. She does have mild abdominal distention with ascites, but this is much better, status post paracentesis. She has peripheral muscle wasting. EXTREMITIES: No lower extremity edema. IMPRESSION: 1. Cirrhosis of the liver. 2. Ascites with marked symptomatic improvement, status post paracentesis. 3. End-stage renal disease, on hemodialysis. 4. Chronic obstructive pulmonary disease, on home oxygen. 5. Liver mass noted by a CT scan in the dome of the liver. Her CEA level is elevated. Additional imaging with contrast 3-phase MRI of the liver would be helpful. Given that she is already on dialysis, I would expect that should be okay; however, we will need to clear that with Nephrology. The fluid cytology was negative. RECOMMENDATIONS: 1. MRI of the liver 3-phase with contrast if okay with Nephrology. 2. Recommend upper endoscopy to evaluate for upper GI malignancy in light of the elevated CEA level. If that is negative, consider further imaging; however, I do not know that the PET scan will be available without a definitive diagnosis. She did have negative colonoscopy in 2017 except for moderately large polyp. Job ID: [id number]
[2019-09-23] MEDS: Famotidine 20 MG TAB PO SCH (20:35)
[2019-09-24 04:33] LABS: INR-International Normal Ratio 1.5; Prothrombin Time 17.6 SEC (12.0-14.7)
[2019-09-24 04:34] LABS: PTT 55.3 SEC (22.9-36.1)
[2019-09-24 04:47] LABS: ALT (SGPT) 21 U/L (8-55); AST (SGOT) 52 U/L (5-34); Albumin 2.3 g/dL (3.4-4.8); Alkaline Phosphatase 239 U/L (40-110); Anion Gap 11 mmol/L (10-20); BUN (Urea Nitrogen) 16 mg/dL (9.8-20.1); Bilirubin, Total 0.3 mg/dL (0.2-1.2); Calc. Creatinine Clearance 13 mL/min (70-130); Calcium 7.8 mg/dL (7.8-10.44); Carbon Dioxide 26 mmol/L (23-31); Chloride 99 mmol/L (98-107); Estimated GFR-MDRD 15; Globulin 2.5 g/dL (2.4-3.5); Glucose 89 mg/dL (80-115); Potassium 5.5 mmol/L (3.5-5.1); Protein, Total 4.8 g/dL (6.0-8.3); Sodium 130 mmol/L (136-145)
--- NOTE | 2019-09-24 07:02 | PDOC.FM ---
- Subjective Subjective: Pt underwent EGD today. Still "groggy," feeling. Resting well in D at the moment upon examination. No acute overnight events. - Objective MAR Reviewed: Yes Vital Signs & Weight: Vital Signs (12 hours) Temp Pulse Resp BP BP Pulse Ox 09/24/19 03:13 98.1 F 64 18 138/62 94 L 09/23/19 23:30 98.3 F 64 18 139/63 95 09/23/19 20:32 98.3 F 66 18 129/60 95 Weight Admit Weight 51.691 kg Weight 49.895 kg I&O: 09/23/19 09/24/19 09/25/19 06:59 06:59 06:59 Intake Total 1300 1030 Output Total 0 Balance 1300 1030 Result Diagrams: 09/23/19 10:24 09/24/19 03:56 Phys Exam - Physical Examination Constitutional: NAD HEENT: moist MMs Neck: supple, full ROM Respiratory: no wheezing, clear to auscultation bilateral Cardiovascular: RRR Gastrointestinal: soft, non-tender, no distention, positive bowel sounds Musculoskeletal: pulses present, edema present Neurological: non-focal, moves all 4 limbs Psychiatric: normal affect, A&O x 3 Skin: normal turgor, cap refill <2 seconds Dx/Plan (1) Cirrhosis of liver with ascites Code(s): K74.60 - UNSPECIFIED CIRRHOSIS OF LIVER; R18.8 - OTHER ASCITES Status : Acute (2) Diarrhea Code(s): R19.7 - DIARRHEA, UNSPECIFIED Status: Acute (3) ESRD (end stage renal disease) on dialysis Code(s): N18.6 - END STAGE RENAL DISEASE; Z99.2 - DEPENDENCE ON RENAL DIALYSIS Status: Acute (4) Physical deconditioning Code(s): R53.81 - OTHER MALAISE Status: Acute (5) HTN (hypertension) Code(s): I10 - ESSENTIAL (PRIMARY) HYPERTENSION Status: Chronic - Plan Plan: Severe Abdominal Distention, with Cirrhosis and ascites -Likely cause of abdominal pain/bloating. NTTP -Renal US from 08/06/2019 showed moderate ascites. -CT abd: large volume ascites, pos lesion on dome of liver, Diverticulosis. MRI recommended. Pt has ESRD on HD cannot receive MRI contrast. -AST elevated but around baseline from previous visits -zofran/bentyl for pain relief -Lipase 10 - GI consulted: appreciate recommendations. - EGD planned with Dr. Light 09/23. Report pending. -Hep panel done last visit and negative - DDX: autoimmune hepatitis, hepatic mass, alcoholic/non-alcoholic cirrhosis, vs renal failure with portal HTN component. - US guided Paracentesis performed on 09/21, 6 L removed. Pt given albumin post procedure. - AFP wnl, CEA elevated at 7.55, Ca-19-9 pending Chronic Diarrhea -Pt had colonoscopy a year ago reported normal. Dr. Craven consulted with GI, appreciate recs. -C diff neg. D/C contact precautions. Elevated Trop -Trop at outside ER .036, trended down to .01 once here -Likely from ESRD and demand ESRD on dialysis -Diamondrho consulted- Dr. Green, follow recs. Continue regular schedule - M, W, F - Elevated K to 5.5 09/23, will receive HD today. Monitor daily CMP. HTN -continue home meds Hx Arrhythmia -Continue home amiodarone. continue home meds -EKG stable presumptive COPD -Pt has extensive smoking history. On 2L of O2 at home. No sign of exacerbation at this time. -Duonebs prn. Anemia of Chronic Dz -continue home meds Generalized Weakness -PT/OT consulted -CM consulted for d/c planning - Pt adamant about going home upon D/C. Previous etoh use Pt has hx of 3 glasses of wine nightly, ceased this activity one year ago. DVT ppx: on eliquis GERD ppx: Famotidine Dispo: observation. GI and nephrology consulted, following recs Addendum - Attending - Attending Attestation Date/Time: 09/24/19 5383 I personally evaluated the patient and discussed the management with Dr. Hawkins. I agree with the History, Examination, Assessment and Plan documented above with any addition or exceptions noted below. EGD performed today and patient seen in dialysis. Will await further specialist recs but likely d/c today.
[2019-09-24] MEDS ORDERED: Heparin 10,000 UNITS/ 10 ML VIAL ONE (09:25)
[2019-09-24] MEDS: Potassium Chloride 10 MEQ TAB PO SCH ×2 (10:00→16:16)
[2019-09-24] MEDS: Folic Acid 1 MG TAB PO SCH (10:00)
[2019-09-24] MEDS: Aspirin 81 mg Enteric Coated Tablet PO SCH (10:00)
[2019-09-24] MEDS: Carvedilol 3.125 MG TAB PO SCH (10:01)
[2019-09-24] MEDS: Amiodarone 200 MG TAB PO SCH (10:01)
[2019-09-24] MEDS: Apixaban 2.5 MG TAB PO SCH (10:01)
[2019-09-24] MEDS: Cyanocobalamin (Vitamin B-12) 1,000 MCG TAB PO SCH (10:01)
[2019-09-24] MEDS ORDERED: Lidocaine 1% PF 5 ML VIAL ONE (11:27)
[2019-09-24] MEDS ORDERED: PROPOFOL 200 MG/20 ML VIAL ONE (11:27)
--- NOTE | 2019-09-24 12:09 | OP ---
DATE OF PROCEDURE: 09/24/2019 PROCEDURE PERFORMED: Esophagogastroduodenoscopy with biopsy. PREOPERATIVE DIAGNOSES: Anemia, cirrhosis of the liver, elevated CEA level, and mass lesion in the liver. Evaluate for gastrointestinal bleeding source or neoplastic lesion. DESCRIPTION OF PROCEDURE: Informed consent was obtained from the patient. She was sedated with total intravenous anesthesia. The bite block was placed and the endoscope was advanced easily to the second portion of the duodenum and retroflexion was performed in the stomach. The esophagus was normal. No varices were present. There were four polyps in the gastric, cardia, and fundus near the cardia. Two of these had a white apex and were biopsied to rule out carcinoid tumors. These only measure around 5 mm and have a benign appearance overall. The antrum of the stomach had friable, erythematous, erosive gastritis. There was an area of raised mucosa around this as well. This was circumferentially around the antrum and up to the pylorus. Biopsies were obtained to rule out malignancy and H pylori. The first and second portions of the duodenum were normal. IMPRESSION: 1. Erosive, erythematous, friable gastritis in the antrum. Biopsies obtained to rule out malignancy or Helicobacter pylori. 2. Four polyps in the cardia/fundus of the stomach biopsied. Two of these had a white apex and will rule out carcinoid. 3. Otherwise unremarkable upper endoscopy. No varices were present. RECOMMENDATIONS: 1. Hold Eliquis today. It can be restarted tomorrow. 2. Await histopathology. 3. Would start proton pump inhibitor daily. 4. The primary service is verifying with Nephrology whether or not Ms. Noel can follow through with a liver mass protocol, MRI or whether or not she truly cannot receive gadolinium in the setting of her end-stage renal disease. Job ID: [id number]
--- NOTE | 2019-09-24 14:08 | EKG ---
Test Reason : Blood Pressure : / mmHG Vent. Rate : 068 BPM Atrial Rate : 068 BPM P-R Int : 176 ms QRS Dur : 082 ms QT Int : 556 ms P-R-T Axes : 091 022 019 degrees QTc Int : 591 ms Normal sinus rhythm Low voltage QRS Septal infarct , age undetermined Prolonged QT Abnormal ECG Confirmed by MANJU GARCIA ([id number]), supervising film or videotape editor GISSELLE WHITING ([id number]) on 09/24/2019 2:08:01 PM Referred By: Confirmed By:MANJU GARCIA
[2019-09-25 04:29] LABS: INR-International Normal Ratio 1.2; Prothrombin Time 15.5 SEC (12.0-14.7)
[2019-09-25 04:30] LABS: PTT 45.2 SEC (22.9-36.1)
[2019-09-25 04:45] LABS: ALT (SGPT) 23 U/L (8-55); AST (SGOT) 58 U/L (5-34); Alkaline Phosphatase 251 U/L (40-110); Anion Gap 13 mmol/L (10-20); BUN (Urea Nitrogen) 14 mg/dL (9.8-20.1); Bilirubin, Total 0.3 mg/dL (0.2-1.2); Calc. Creatinine Clearance 15 mL/min (70-130); Calcium 7.4 mg/dL (7.8-10.44); Carbon Dioxide 20 mmol/L (23-31); Chloride 102 mmol/L (98-107); Estimated GFR-MDRD 17; Globulin 2.7 g/dL (2.4-3.5); Glucose 99 mg/dL (80-115); Potassium 4.8 mmol/L (3.5-5.1); Protein, Total 4.7 g/dL (6.0-8.3); Sodium 130 mmol/L (136-145)
[2019-09-25 05:21] LABS: Hemoglobin 9.2 g/dL (12.0-16.0)
--- NOTE | 2019-09-25 06:42 | PDOC.FM ---
- Subjective Subjective: Pt's hgb stable pt states she is ready to go home. no overnight events vss. - Objective MAR Reviewed: Yes Vital Signs & Weight: Vital Signs (12 hours) Temp Pulse Resp BP Pulse Ox 09/25/19 04:00 97.5 F L 71 18 140/64 92 L 09/25/19 00:00 98.5 F 67 18 126/59 L 92 L 09/24/19 19:56 98.2 F 70 16 111/54 L 96 Weight Admit Weight 51.691 kg Weight 49.895 kg I&O: 09/23/19 09/24/19 09/25/19 06:59 06:59 06:59 Intake Total 1300 1030 960 Output Total 0 Balance 1300 1030 960 Result Diagrams: 09/25/19 04:12 09/25/19 04:12 Phys Exam - Physical Examination Constitutional: NAD HEENT: moist MMs Neck: supple, full ROM Respiratory: no wheezing, clear to auscultation bilateral Cardiovascular: RRR, no rub Gastrointestinal: soft, non-tender, no distention, positive bowel sounds Musculoskeletal: pulses present, edema present Neurological: moves all 4 limbs Psychiatric: normal affect, A&O x 3 Skin: normal turgor, cap refill <2 seconds Dx/Plan (1) Cirrhosis of liver with ascites Code(s): K74.60 - UNSPECIFIED CIRRHOSIS OF LIVER; R18.8 - OTHER ASCITES Status : Acute (2) Diarrhea Code(s): R19.7 - DIARRHEA, UNSPECIFIED Status: Acute (3) ESRD (end stage renal disease) on dialysis Code(s): N18.6 - END STAGE RENAL DISEASE; Z99.2 - DEPENDENCE ON RENAL DIALYSIS Status: Acute (4) Physical deconditioning Code(s): R53.81 - OTHER MALAISE Status: Acute (5) HTN (hypertension) Code(s): I10 - ESSENTIAL (PRIMARY) HYPERTENSION Status: Chronic - Plan Plan: Severe Abdominal Distention, with Cirrhosis and ascites -Likely cause of abdominal pain/bloating. NTTP -Renal US from 08/06/2019 showed moderate ascites. -CT abd: large volume ascites, pos lesion on dome of liver, Diverticulosis. MRI recommended. Pt has ESRD on HD cannot receive MRI contrast. -AST elevated but around baseline from previous visits -zofran/bentyl for pain relief -Lipase 10 - GI consulted: appreciate recommendations. - EGD Dr. Light 09/23. Several biopsies taken in antrum of stomach and polyps. Wanted to be monitored overnight 09/23 since on eliquis. - Hgb stable at 9.2 AM of 09/24. Stable for D/c -Hep panel done last visit and negative - DDX: autoimmune hepatitis, hepatic mass, alcoholic/non-alcoholic cirrhosis, vs renal failure with portal HTN component. - US guided Paracentesis performed on 09/21, 6 L removed. Pt given albumin post procedure. - AFP wnl, CEA elevated at 7.55, Ca-19-9 elevated Chronic Diarrhea -Pt had colonoscopy a year ago reported normal. Dr. Craven consulted with GI, appreciate recs. -C diff neg. D/C contact precautions. Elevated Trop -Trop at outside ER .036, trended down to .01 once here -Likely from ESRD and demand ESRD on dialysis -Neprho consulted- Dr. Green, follow recs. Continue regular schedule - M, W, F - Monitor daily CMP. HTN -continue home meds Hx Arrhythmia -Continue home amiodarone. continue home meds -EKG stable presumptive COPD -Pt has extensive smoking history. On 2L of O2 at home. No sign of exacerbation at this time. -Duonebs prn. Anemia of Chronic Dz -continue home meds Generalized Weakness -PT/OT consulted -CM consulted for d/c planning - Pt adamant about going home upon D/C. Previous etoh use Pt has hx of 3 glasses of wine nightly, ceased this activity one year ago. DVT ppx: on eliquis GERD ppx: Famotidine Dispo: observation. GI and nephrology consulted, following recs D/C home today Addendum - Attending - Attending Attestation Date/Time: 09/25/19 3780 I personally evaluated the patient and discussed the management with Dr. Hawkins. I agree with the History, Examination, Assessment and Plan documented above with any addition or exceptions noted below.
[2019-09-25] MEDS: Folic Acid 1 MG TAB PO SCH (08:35)
[2019-09-25] MEDS: Carvedilol 3.125 MG TAB PO SCH (08:35)
[2019-09-25] MEDS: Cyanocobalamin (Vitamin B-12) 1,000 MCG TAB PO SCH (08:35)
[2019-09-25] MEDS: Aspirin 81 mg Enteric Coated Tablet PO SCH (08:35)
[2019-09-25] MEDS: Amiodarone 200 MG TAB PO SCH (08:35)
[2019-09-25] MEDS: Potassium Chloride 10 MEQ TAB PO SCH (08:35)
[2019-09-25] MEDS: Apixaban 2.5 MG TAB PO SCH (08:36)
[2019-09-25 09:57] VITALS: BP 146/65; TEMP 97.3
--- NOTE | 2019-09-26 05:17 | DIS ---
DATE OF ADMISSION: 09/21/2019 DATE OF DISCHARGE: 09/25/2019 DISCHARGE ATTENDING: Bo Estes MD. CONSULTS: Gastroenterology, Dr. Light. Nephrology, Dr. Green. Dietitian, Case Management, PT, OT, and Wound Care. PROCEDURES: 1. Dialysis on 09/23 and 09/21. 2. Esophagogastroduodenoscopy on 09/23, done by Dr. Light, which contained multiple biopsies of the antrum of the stomach as well as some waist areas that were suspicious according to Dr. Light, which required to be looked at since she was on Eliquis and overnight monitored for any bleeding that might have occurred, but the patient's hemoglobin was stable. DIAGNOSES: 1. Severe abdominal distention with cirrhosis and new onset ascites. 2. Chronic diarrhea. 3. Elevated troponin. 4. End-stage renal disease on hemodialysis. 5. Hypertension. 6. History of arrhythmia. 7. Presumptive chronic obstructive pulmonary disease. 8. Anemia of chronic disease. 9. Generalized weakness. 10. Previous alcohol abuse with no current use. DISCHARGE MEDICATIONS: 1. Eliquis 2.5 mg p.o. b.i.d. 2. Aspirin 81 mg p.o. daily. 3. Coreg 3.125 p.o. q.a.m. 4. Vitamin B12 1000 mcg p.o. daily. 5. Folic acid 1 mg p.o. daily. 6. Sertraline 50 mg p.o. daily. 7. Amiodarone 200 mg p.o. daily, 30 tablets given as the patient was out. 8. Protonix 40 mg p.o. daily. 9. K-Dur 10 mEq p.o. b.i.d. with meal. HOSPITAL COURSE: Ms. Mary Kate Noel is a 68-year-old female, who came in to the hospital due to distended abdomen causing discomfort. She was found to have new onset cirrhosis with ascites. This is likely secondary to renal or alcoholic versus non-alcoholic hepatitis and GI was consulted, who worked up her liver mass that was found on CT abdomen and pelvis, which is located in the hepatic dome. They recommended an MRI; however, after speaking with Nephrology, they said this is an absolute contraindication as the side effects from this being on ESRD are untreatable and the patient would need to understand that if she were to get skin manifestations, there would be no cure for this. So, we opted to not do the MRI for the patient, and it is recommended that she will follow up with a CT abdomen and pelvis with contrast, coordinating with dialysis in the outpatient setting. She has also been followed for chronic diarrhea. Her stool studies were negative for C. diff in the hospital. Dr. Light recommended that she have an EEG inpatient as he is concerned for a GI origin mass with elevated CEA and elevated CA-19-9; however, the AFP was normal at 2.5. He took multiple biopsies of the antrum of the stomach, and then, also a polyp in the upper GI tract. He says that because she is on Eliquis and took a number of these biopsies, she will need to stay another night in the hospital to monitor for bleeding. Her hemoglobin was stable on 09/24 at 9.2, and she was deemed acceptable to discharge home with close GI followup in the outpatient setting. The patient's GI doctor is Dr. Craven and the patient's inside polisher is Dr. Green. The patient had a paracentesis on 09/21, which removed 6 L of ascitic fluid. Studies were not consistent with any infectious process. No growth on Gram stain or culture. DISPOSITION: Stable upon discharge. DISCHARGE INSTRUCTIONS: 1. Location: To home. 2. Diet: Renal diet, high-protein, and low sodium. 3. Activity: As tolerated. 4. Followup: Follow up with primary care physician, Dr. Villagomez in 1 week. Follow up with Dr. Craven, skin piler in 1 week. Follow up with Dr. Green, inside polisher in 1 week. Job ID: [id number]
[2019-09-27 14:13] LABS: Smooth Muscle Total ABS 8 Units (0-19)
[2019-09-27 15:43] LABS: ANA Symphony (Qualitative) POSITIVE (Negative); ANA Symphony (Quantitative) 2.5 Ratio (< 0.7 Negative); CENP IgG Antibody 0.4 EliAU/mL (<7 Negative); EliA Vaculitis New Method **** NEW METHOD ****; Jo-1 IgG Antibody Less than 0.3 EliAU/mL (<7 Negative); RNP70 IgG Antibody Less than 0.3 EliAU/mL (<7 Negative); SSB/La IgG Antibody 0.5 EliAU/mL (<7 Negative); Scleroderma-70 IgG Antibody 0.7 EliAU/mL (<7 Negative); dsDNA IgG Antibody 1.1 IU/mL (<10 Negative)
[2019-09-29 14:12] LABS: A1 Antitrypsin Phenotype Inter MZ (.); Alpha-1-Antitrypsin 67 mg/dL (101-187)
== END 2019-09-25 12:42 | disposition home or self-care (01) ==
LOC: ERS 18:03 → 2NO 19:27
PROVIDERS: ADMIT Family Medicine; ATTEND Family Medicine
PROC: 0W9G3ZX Drainage of Peritoneal Cavity, Percutaneous Approach, Diagnostic (ICD-10-PCS; principal; 2019-09-22)
PROC: 0DB78ZX Excision of Stomach, Pylorus, Via Natural or Artificial Opening Endoscopic, Diagnostic (ICD-10-PCS; 2019-09-24)
DX: K31.7 Polyp of stomach and duodenum (principal); K29.60 Other gastritis without bleeding; K74.60 Unspecified cirrhosis of liver; R18.8 Other ascites; K52.9 Noninfective gastroenteritis and colitis, unspecified; R79.89 Other specified abnormal findings of blood chemistry; I12.0 Hypertensive chronic kidney disease with stage 5 chronic kidney disease or end stage renal disease; N18.6 End stage renal disease; D63.1 Anemia in chronic kidney disease; R53.1 Weakness; R53.81 Other malaise; F10.11 Alcohol abuse, in remission; K57.30 Diverticulosis of large intestine without perforation or abscess without bleeding; I70.0 Atherosclerosis of aorta; K80.20 Calculus of gallbladder without cholecystitis without obstruction; N28.89 Other specified disorders of kidney and ureter; J90 Pleural effusion, not elsewhere classified; F41.9 Anxiety disorder, unspecified; K76.9 Liver disease, unspecified; R97.0 Elevated carcinoembryonic antigen [CEA]; E44.0 Moderate protein-calorie malnutrition; Z68.1 Body mass index [BMI] 19.9 or less, adult; Z86.010 Personal history of colon polyps; Z87.891 Personal history of nicotine dependence; Z79.01 Long term (current) use of anticoagulants; Z79.82 Long term (current) use of aspirin; Z79.899 Other long term (current) drug therapy; Z99.2 Dependence on renal dialysis
CPT/HCPCS: 43239; 49083; 74170; 74176; 80053 ×5; 81256; 82042; 82103; 82104; 82105; 82140; 82150; 82378; 82728; 82784; 82945; 83516; 83540; 83550; 83615; 83690; 83880; 84157; 84484; 85014 ×2; 85018 ×2; 85025; 85049; 85610 ×4; 85730 ×4; 86038; 86225; 86235; 86301; 87070; 87205; 88112; 88305; 88312; 88342; 89051; 93005; 93306; 97110 ×2; 97116; 97139 ×8; 97535 ×2; 99284; G0378 ×6; J2704; P9047; Q9967; 36415; 85060; 90935; G0257; J1644; J2001

== ENCOUNTER 2019-10-11 13:56 | Emergency (ER) | payer MEDICARE ==
[2019-10-11 15:09] LABS: #Lymphocytes 1.1 thou/uL (1.20-3.40); #Monocytes 0.3 thou/uL (0.11-0.59); #Neutrophils 6.2 thou/uL (1.40-6.50); %Basophils 0.5 % (0.0-1.0); %Eosinophils 0.5 % (0.0-10.0); %Lymphocytes 14.6 % (21.0-51.0); %Monocytes 3.5 % (0.0-10.0); %Neutrophils 80.9 % (42.0-75.0); Hemoglobin 12.2 g/dL (12.0-16.0); Mean Corpuscular HGB CONC 31.7 g/dL (32.0-36.0); Mean Platelet Volume 6.9 fL (7.4-10.4); Platelet Count 217 thou/uL (130-400); RBC Distribution Width 13.8 % (11.5-14.5); White Blood Cell (WBC) Count 7.7 thou/uL (4.8-10.8)
[2019-10-11] MEDS ORDERED: Ondansetron ODT 4 MG TAB ONE (15:15)
--- NOTE | 2019-10-11 15:20 | RAD ---
EXAM: CHEST ONE VIEW HISTORY: Nausea, fluid overload, generalized weakness. COMPARISON: 10/09/2019 FINDINGS: Tunneled right internal jugular vein hemodialysis catheter remains in place. Moderate left pleural ef fusion is present with associated atelectasis. Right lung remains clear. Left cardiac border is obscured. Pulmonary vasculature is within normal limits. No other interval change including osteopeni a and remote healed left proximal humerus fracture. IMPRESSION: Moderate size left pleural effusion and atelectasis also noted on prior exam.
[2019-10-11 16:09] LABS: ALT (SGPT) 31 U/L (8-55); AST (SGOT) 63 U/L (5-34); Albumin 2.4 g/dL (3.4-4.8); Alkaline Phosphatase 293 U/L (40-110); Anion Gap 15 mmol/L (10-20); BUN (Urea Nitrogen) 13 mg/dL (9.8-20.1); Bilirubin, Total 0.4 mg/dL (0.2-1.2); Calc. Creatinine Clearance 0 mL/min (70-130); Calcium 8.1 mg/dL (7.8-10.44); Carbon Dioxide 22 mmol/L (23-31); Chloride 100 mmol/L (98-107); Estimated GFR-MDRD 15; Globulin 3.5 g/dL (2.4-3.5); Glucose 104 mg/dL (80-115); Potassium 4.2 mmol/L (3.5-5.1); Protein, Total 5.9 g/dL (6.0-8.3); Sodium 133 mmol/L (136-145)
== END 2019-10-11 17:51 | disposition home or self-care (01) ==
LOC: ERS 13:56
DX: R53.1 Weakness (principal); I12.0 Hypertensive chronic kidney disease with stage 5 chronic kidney disease or end stage renal disease; N18.6 End stage renal disease; E87.6 Hypokalemia; Z87.891 Personal history of nicotine dependence
CPT/HCPCS: 36415; 71045; 80053; 85025; Q0162

== ENCOUNTER 2019-10-15 09:39 | Observation (INO) | payer MEDICARE ==
[2019-10-15 10:35] LABS: #Lymphocytes 1.3 thou/uL (1.20-3.40); #Monocytes 0.3 thou/uL (0.11-0.59); #Neutrophils 3.3 thou/uL (1.40-6.50); %Eosinophils 2.5 % (0.0-10.0); %Lymphocytes 26.2 % (21.0-51.0); %Monocytes 6.4 % (0.0-10.0); %Neutrophils 63.9 % (42.0-75.0); Hemoglobin 9.7 g/dL (12.0-16.0); Mean Corpuscular HGB CONC 30.7 g/dL (32.0-36.0); Mean Corpuscular Hemoglobin 30.6 pg (27.0-31.0); Mean Corpuscular Volume 99.8 fL (78.0-98.0); Mean Platelet Volume 7.3 fL (7.4-10.4); Platelet Count 166 thou/uL (130-400); RBC Distribution Width 13.6 % (11.5-14.5); Red Blood Cell (RBC) Count 3.16 mill/uL (4.20-5.40); White Blood Cell (WBC) Count 5.1 thou/uL (4.8-10.8)
[2019-10-15 10:36] LABS: #Basophils 0.1 thou/uL (0.0-0.2); #Eosinphils 0.1 thou/uL (0.0-0.7)
[2019-10-15 10:56] LABS: ALT (SGPT) 43 U/L (8-55); AST (SGOT) 81 U/L (5-34); Albumin 2.1 g/dL (3.4-4.8); Alkaline Phosphatase 296 U/L (40-110); Anion Gap 11 mmol/L (10-20); BUN (Urea Nitrogen) 14 mg/dL (9.8-20.1); Bilirubin, Total 0.4 mg/dL (0.2-1.2); Calc. Creatinine Clearance 0 mL/min (70-130); Calcium 7.7 mg/dL (7.8-10.44); Carbon Dioxide 27 mmol/L (23-31); Chloride 101 mmol/L (98-107); Estimated GFR-MDRD 19; Globulin 2.6 g/dL (2.4-3.5); Glucose 84 mg/dL (80-115); Lipase 13 U/L (8-78); Potassium 3.5 mmol/L (3.5-5.1); Protein, Total 4.7 g/dL (6.0-8.3); Sodium 135 mmol/L (136-145)
[2019-10-15 11:16] LABS: CKMB 1.4 ng/mL (0-6.6)
--- NOTE | 2019-10-15 13:24 | PDOC.FPRHP ---
- History of Present Illness Chief Complaint: Shortness of breath History of Present Illness: 68 yo pt w/ pmh of ESRD on Dialysis, comes to ER w/ complaint of shortness of breath and abdominal distention. Pt feels weak and bloated. Was admitted 1 mo ago and had paracentesis and had 6L removed. Ascites was found to be due to cirrhosis of the liver. States over the last week her abdomen has been getting more distended and now is at the point it is affecting her ability to breath due to the pressure. She denies any cough, fever, chills. Notes she has been eating less the last few days as well due to nausea caused by her abdominal distention. Pt wears oxygen at home. sleeps with 2L at home. ED Course: 4L ascitic fluid removed via paracentesis. Seen by Dr. Green - recommended admission for hemodialysis tomorrow. - Allergies/Adverse Reactions Allergies Allergy/AdvReac Type Severity Reaction Status Date / Time No Known Allergies Allergy Verified 10/15/19 15:45 - Home Medications Medication Instructions Recorded Confirmed Type Sertraline HCl 50 mg PO HS 08/05/18 10/15/19 History Carvedilol 1 tab PO QAM 07/28/19 10/15/19 History Cyanocobalamin (Vitamin B-12) 1,000 mcg PO DAILY 08/02/19 10/15/19 History [B-12] Folic Acid 1 mg PO DAILY 08/02/19 10/15/19 History Apixaban [Eliquis] 2.5 mg PO BID 08/03/19 10/15/19 History Aspirin [Ecotrin Low Strength] 81 mg PO DAILY 08/03/19 10/15/19 History Amiodarone [Cordarone] 200 mg PO DAILY #30 tab 09/23/19 10/15/19 Rx Potassium Chloride [Klor-Con 10] 10 meq PO BID-WM tab 09/23/19 10/15/19 Rx Pantoprazole [Protonix] 40 mg PO DAILY #30 tab 09/25/19 10/15/19 Rx - History PMHx: Cirrhosis - liver mass, ESRD on hemodialysis, HTN, arrhythmia with HR issues, Likely underlying COPD on 2L of O2 at home PSHx: none FHx: parents had HTN Social: Quit smoking last year, had smoked for 50 years. Denies etoh or drug use. - Review of Systems General: reports: weight/appetite/sleep changes. denies: fever/chills Eyes: denies: vision changes, other ENT: denies: rhinorrhea, other Respiratory: reports: shortness of breath. denies: cough Cardiovascular: reports: edema. denies: chest pain Gastrointestinal: reports: nausea, abdominal pain. denies: vomiting, diarrhea Genitourinary: denies: dysuria, other Skin: denies: lesions, jaundice Musculoskeletal: denies: pain, tenderness Neurological: reports: weakness. denies: syncope Psychological: reports: depression. denies: other - Vital signs BP: 128/66, MAP: 86, Pulse: 70, Resp: 17, Temp: 97.6 (Oral), Pain: 0, O2 sat: 98 % on (2L Oxygen), Wt: 45kg - Physical Exam Constitutional: NAD, awake, alert and oriented -Constitutional: Cachectic HEENT: EOMI, grossly normal vision, grossly normal hearing -HEENT: MM dry Neck: FROM Heart: RRR, normal S1/S2, no murmurs/rubs/gallops -Heart: 1+ pitting edmea to BLE -Lungs: Poor inspiration and airation, scant crackles on left -Abdomen: Markedly distended, + fluid wave, discomfort with palpation diffusely -Musculoskeletal: Poor lean muscle mass, no adipose tissue Neurological: no focal deficit Skin: no rash/lesions -Skin: Poor skin turgor, slight jaundice noted Heme/Lymphatic: no unusual bruising or bleeding, no purpura Psychiatric: normal mood and affect, good judgment and insight FMR H&P: Results - Labs Result Diagrams: 10/15/19 10:21 10/15/19 10:21 Lab results: WBC 5.1 thou/uL (4.8-10.8) 10/15/19 10:21 Hgb 9.7 g/dL (12.0-16.0) L 10/15/19 10:21 Hct 31.5 % (36.0-47.0) L 10/15/19 10:21 MCV 99.8 fL (78.0-98.0) H 10/15/19 10:21 Plt Count 166 thou/uL (130-400) 10/15/19 10:21 Neutrophils % 63.9 % (42.0-75.0) 10/15/19 10:21 Sodium 135 mmol/L (136-145) L 10/15/19 10:21 Potassium 3.5 mmol/L (3.5-5.1) 10/15/19 10:21 Chloride 101 mmol/L (98-107) 10/15/19 10:21 Carbon Dioxide 27 mmol/L (23-31) 10/15/19 10:21 BUN 14 mg/dL (9.8-20.1) 10/15/19 10:21 Creatinine 2.55 mg/dL (0.6-1.1) H 10/15/19 10:21 Glucose 84 mg/dL (80-115) 10/15/19 10:21 Calcium 7.7 mg/dL (7.8-10.44) L 10/15/19 10:21 Total Bilirubin 0.4 mg/dL (0.2-1.2) 10/15/19 10:21 AST 81 U/L (5-34) H 10/15/19 10:21 ALT 43 U/L (8-55) 10/15/19 10:21 Alkaline Phosphatase 296 U/L (40-110) H 10/15/19 10:21 CK-MB (CK-2) 1.4 ng/mL (0-6.6) 10/15/19 10:21 B-Natriuretic Peptide 1352.3 pg/mL (0-100) H 10/15/19 10:21 Serum Total Protein 4.7 g/dL (6.0-8.3) L 10/15/19 10:21 Albumin 2.1 g/dL (3.4-4.8) L 10/15/19 10:21 Lipase 13 U/L (8-78) 10/15/19 10:21 - Radiology Interpretation Chest x-ray Status: report reviewed by me (Stable left sided loculated pleural effusion) FMR H&P: A/P - Problem List (1) Abdominal distension Current Visit: No Status: Acute Code(s): R14.0 - ABDOMINAL DISTENSION ( GASEOUS) (2) Cirrhosis of liver with ascites Current Visit: No Status: Acute Code(s): K74.60 - UNSPECIFIED CIRRHOSIS OF LIVER; R18.8 - OTHER ASCITES (3) Depressed Current Visit: No Status: Acute Code(s): F32.9 - MAJOR DEPRESSIVE DISORDER, SINGLE EPISODE, UNSPECIFIED (4) ESRD (end stage renal disease) on dialysis Current Visit: No Status: Acute Code(s): N18.6 - END STAGE RENAL DISEASE; Z99.2 - DEPENDENCE ON RENAL DIALYSIS (5) Physical deconditioning Current Visit: No Status: Acute Code(s): R53.81 - OTHER MALAISE (6) HTN (hypertension) Current Visit: No Status: Chronic Code(s): I10 - ESSENTIAL (PRIMARY) HYPERTENSION - Plan Cirrhosis - severe ascities -Worsening over last week, affecting breathing and eating -4L ascitic fluid removed with paracentesis in ED -AST elevated but around baseline from previous visits -Hep panel previously negative -Coags ordered to classify -Found to have liver mass with elevated CEA, recommended for MRI follow up in 2- 5 mo ESRD on dialysis -Neprho consulted- Dr. Green -Saw pt in ED and recommended holding hemodialysis today and admission for dialysis tomorrow Elevated Trop -Likely from ESRD and demand -No CP HTN -continue home meds Hx Arrhythmia -Continue home amiodarone. continue home meds presumptive COPD -Pt has extensive smoking history. On 2L of O2 at home. No sign of exacerbation at this time. Anemia of Chronic Dz -continue home meds DVT ppx: on eliquis GERD ppx: Famotidine Code: Full Dispo: Tele obs for fluid status monitoring and hemodialysis tomorrow. ELOS < 48hr FMR H&P: Upper Level - Plan Date/Time: 10/15/19 1323 I, Missael Jefferson MD, have evaluated this patient and agree with findings/ plan as outlined by internet and e business project manager resident. Pertinent changes/additions are listed here. Cirrhosis with ascites - s/p paracentesis with 4L fluid - Albumin to be given - Will need additional paracentesis as outpatient ESRD on HD - Dr. Green recommended admission for HD tomorrow - No emergent indication at this time Physical Deconditioning and Cachexia - Continued deterioration - Likely would benefit from Palliative and/or Hospice care All other chronic conditions reviewed and medications to be restarted as appropriate PCP: Dr. Villagomez CODE STATUS: FULL CODE Disposition: Stable, but overall prognosis poor. Will admit to observation status for HD tomorrow. Addendum - Attending - Attending Attestation Date/Time: 10/15/19 3134 I personally evaluated the patient and discussed the management with Dr. Barton/ Li. I agree with the History, Examination, Assessment and Plan documented above with any addition or exceptions noted below. Patient with chronic conditions, including ESRD on HD, cirrhosis, and cachexia here with shortness of breath associated with abdominal swelling. This is now resolved s/p paracentesis and albumin admin. She will be dialyzed tomorrow per Nephro. She is otherwise stable with her chronic medical problems. Continue home meds. Hopeful dc tomorrow after dialysis. Monitor for hypotension. Consider dietary consult.
--- NOTE | 2019-10-15 13:30 | RAD ---
CHEST ONE VIEW: 10/15/19 INDICATION: 68-year-old female with chest pain. FINDINGS: When compared to prior dated 10/11/19, the loculated left sided pleural effusion is stable appearing. Chronic lung changes are stable appearing. Right IJ dialysis catheter is stable appearing. Right IJ dialysis catheter is stable appearing. Mild cardiomegaly is similar appearing. The healed proximal le ft humeral shaft fracture is unchanged. IMPRESSION: Stable examination of the chest with a stable loculated left sided pleural effusion. POS: BH
[2019-10-15] MEDS ORDERED: Albumin 25% 25 GM/100 ML BOT IVPB ONE (15:38)
[2019-10-15] MEDS ORDERED: Albumin 25% 25 GM/100 ML BOT IVPB SCH (15:45)
[2019-10-15 17:05] LABS: INR-International Normal Ratio 1.2; Prothrombin Time 15.4 sec (12.0-14.7)
[2019-10-15 17:06] LABS: PTT 43.4 SEC (22.9-36.1)
[2019-10-15] MEDS: Potassium Chloride 10 MEQ TAB PO SCH (17:06)
[2019-10-15] MEDS: Apixaban 2.5 MG TAB PO SCH (20:15)
[2019-10-15] MEDS ORDERED: Ondansetron ODT 8 MG TAB SL PRN (21:26)
--- NOTE | 2019-10-16 00:50 | CON ---
DATE OF CONSULTATION: CONSULTING PHYSICIAN: Norma Flaherty MD REQUESTING PHYSICIAN: ER physician. REASON FOR CONSULTATION: End-stage renal disease with gross ascites. IMPRESSION: 1. End-stage renal disease, on hemodialysis Friday, Friday, Friday schedule. 2. Gross ascites, likely in the context of liver failure. 3. Malnutrition/failure to thrive. 4. Respiratory distress in the context of gross ascites. PLAN: 1. This patient's degree of ascites cannot be handled by dialysis, ultrafiltration as this is in a third space. 2. We will hold off on dialysis today and pursue more of paracentesis as the patient does not have any emergent indication for hemodialysis at this point. 3. The patient will benefit from a scheduled paracentesis on a regular basis. 4. Further management will be dependent on the clinical course. HISTORY OF PRESENT ILLNESS: A 68-year-old female patient, who was recently initiated on hemodialysis; however, for some reason, the patient has been developing recurrent gross ascites. About a month ago, the patient did undergo large volume paracentesis with relief of the patient's symptoms. The patient presented again to the ER for the second time recently complaining of abdominal discomfort. On closer clinical evaluation of this patient, abdomen noted to be grossly distended splitting the diaphragm and affecting this patient's ability to eat well and to breathe well. I was called to evaluate the patient and see if dialysis can be of help to this patient. However, it is very clear that this patient will not be able to undergo extensive dialysis that will address this condition, which is a large amount of fluid in the third space, therefore I did suggest admission for large volume paracentesis. PAST MEDICAL HISTORY: Significant for end-stage renal disease, cirrhosis with liver mass, hypertension, dysrhythmia, COPD on oxygen at home. FAMILY HISTORY: Nonsignificantly related to present illness. SOCIAL HISTORY: No alcohol. No tobacco. No illicit drug use. REVIEW OF SYSTEMS: As documented in the body of the history. All the other systems were reviewed and found not to be significantly related to presenting complaint. PHYSICAL EXAMINATION: GENERAL: The patient was found to be in some respiratory distress with my knowledge of looking, noted with the following vital signs. VITAL SIGNS: Temperature 97.4, pulse 70, respiratory rate of 16, O2 saturation of 93% with a blood pressure 102/64. HEENT: Unremarkable. CARDIOVASCULAR: First and second heart sounds were heard. RESPIRATORY: Clear to auscultation. DIGESTIVE: Revealed a grossly distended abdomen. Positive bowel sounds. EXTREMITIES: No significant peripheral edema. SKIN: Revealed a very dry skin. LYMPHATICS: No peripheral lymphadenopathy. SUMMARY: A 68-year-old female patient with end-stage renal disease, who presented here with gross ascites. Thank you for this consultation. We will follow with you. Job ID: [id number]
[2019-10-16 04:49] LABS: #Eosinphils 0.1 thou/uL (0.0-0.7); #Lymphocytes 1.2 thou/uL (1.20-3.40); #Monocytes 0.3 thou/uL (0.11-0.59); #Neutrophils 4.3 thou/uL (1.40-6.50); %Basophils 0.2 % (0.0-1.0); %Eosinophils 1.8 % (0.0-10.0); %Lymphocytes 19.6 % (21.0-51.0); %Monocytes 4.3 % (0.0-10.0); Hemoglobin 10.1 g/dL (12.0-16.0); Mean Corpuscular HGB CONC 31.3 g/dL (32.0-36.0); Mean Corpuscular Hemoglobin 31.1 pg (27.0-31.0); Mean Corpuscular Volume 99.2 fL (78.0-98.0); Mean Platelet Volume 7.3 fL (7.4-10.4); Platelet Count 138 thou/uL (130-400); RBC Distribution Width 13.5 % (11.5-14.5); Red Blood Cell (RBC) Count 3.24 mill/uL (4.20-5.40); White Blood Cell (WBC) Count 5.9 thou/uL (4.8-10.8)
[2019-10-16 05:15] LABS: ALT (SGPT) 41 U/L (8-55); AST (SGOT) 95 U/L (5-34); Albumin 2.3 g/dL (3.4-4.8); Alkaline Phosphatase 289 U/L (40-110); Anion Gap 11 mmol/L (10-20); BUN (Urea Nitrogen) 18 mg/dL (9.8-20.1); Bilirubin, Total 0.5 mg/dL (0.2-1.2); Calc. Creatinine Clearance 13 mL/min (70-130); Calcium 7.7 mg/dL (7.8-10.44); Carbon Dioxide 29 mmol/L (23-31); Chloride 99 mmol/L (98-107); Estimated GFR-MDRD 16; Globulin 2.7 g/dL (2.4-3.5); Glucose 96 mg/dL (80-115); Potassium 3.8 mmol/L (3.5-5.1); Sodium 135 mmol/L (136-145)
--- NOTE | 2019-10-16 06:54 | PDOC.FM ---
- Subjective Subjective: Pt states she is feeling better today. continues to be breathing better after the paracentesis. denies any abdominal pain. agrees with plan for dialysis today and likely dc home afterwards. - Objective Vital Signs & Weight: Vital Signs (12 hours) Temp Pulse Resp BP BP Pulse Ox 10/16/19 03:21 97.8 F 75 18 132/69 99 10/15/19 19:15 97.4 F L 71 18 132/62 95 Weight Weight 45.405 kg I&O: 10/14/19 10/15/19 10/16/19 06:59 06:59 06:59 Intake Total 400 Balance 400 Result Diagrams: 10/16/19 04:13 10/16/19 04:13 Phys Exam - Physical Examination Constitutional: NAD Neck: full ROM Respiratory: clear to auscultation bilateral Slight pitting LE edema Gastrointestinal: soft, non-tender, no distention slightly fluid wave Neurological: moves all 4 limbs Psychiatric: normal affect, A&O x 3 Dx/Plan (1) Abdominal distension Code(s): R14.0 - ABDOMINAL DISTENSION (GASEOUS) Status: Acute (2) Cirrhosis of liver with ascites Code(s): K74.60 - UNSPECIFIED CIRRHOSIS OF LIVER; R18.8 - OTHER ASCITES Status : Acute (3) Depressed Code(s): F32.9 - MAJOR DEPRESSIVE DISORDER, SINGLE EPISODE, UNSPECIFIED Status : Acute (4) ESRD (end stage renal disease) on dialysis Code(s): N18.6 - END STAGE RENAL DISEASE; Z99.2 - DEPENDENCE ON RENAL DIALYSIS Status: Acute (5) Physical deconditioning Code(s): R53.81 - OTHER MALAISE Status: Acute (6) HTN (hypertension) Code(s): I10 - ESSENTIAL (PRIMARY) HYPERTENSION Status: Chronic - Plan Plan: Cirrhosis - severe ascites - Ascites much improved after paracentesis yesterday - followed by 37.5mg albumin -MELD: 23 (19.6% 3 month mortality) -Child-Krishna: B -Previous admission: Found to have liver mass with elevated CEA, recommended for MRI follow up in 2-5 mo ESRD on dialysis -Ana consulted- Dr. Green -hemodialysis today Elevated Trop -Likely from ESRD and demand -No CP HTN -continue home meds Hx Arrhythmia -Continue home amiodarone. continue home meds presumptive COPD -Pt has extensive smoking history. On 2L of O2 at home. No sign of exacerbation at this time. Anemia of Chronic Dz -continue home meds DVT ppx: on eliquis GERD ppx: Famotidine Code: Full Dispo: Tele obs for fluid status monitoring and hemodialysis today, likely will be able to DC today after hemodialysis. Addendum - Attending - Attending Attestation Date/Time: 10/16/19 1034 I personally evaluated the patient and discussed the management with Dr. Barton. I agree with the History, Examination, Assessment and Plan documented above with any addition or exceptions noted below. Patient feeling improved. Hopeful d/c after HD session today.
[2019-10-16] MEDS ORDERED: Amiodarone 200 MG TAB PO SCH (09:00)
[2019-10-16] MEDS ORDERED: Folic Acid 1 MG TAB PO SCH (09:00)
[2019-10-16] MEDS ORDERED: Carvedilol 3.125 MG TAB PO SCH (09:00)
[2019-10-16] MEDS ORDERED: Aspirin 81 mg Enteric Coated Tablet PO SCH (09:00)
[2019-10-16] MEDS ORDERED: Cyanocobalamin (Vitamin B-12) 1,000 MCG TAB PO SCH (09:00)
[2019-10-16] MEDS: Apixaban 2.5 MG TAB PO SCH (13:36)
[2019-10-16] MEDS: Potassium Chloride 10 MEQ TAB PO SCH (13:40)
[2019-10-16 15:20] VITALS: BMI 17.2
[2019-10-16 16:15] VITALS: BP 114/58; TEMP 97.8
--- NOTE | 2019-10-17 01:06 | PRG ---
DATE OF SERVICE: 10/16/2019 SUBJECTIVE: The patient is seen and examined, seems to be doing much better, feeling better. OBJECTIVE: VITAL SIGNS: Noted with the following vital signs; afebrile, temperature 97.8, pulse 88, respiratory rate of 14, O2 saturations are 94% with blood pressure of 114/58. HEENT: Unremarkable. CARDIOVASCULAR SYSTEM: First and second heart sounds were heard. RESPIRATORY SYSTEM: Clear to auscultation. DIGESTIVE SYSTEM: Revealed a benign abdomen. Positive bowel sounds. EXTREMITIES: No peripheral edema. SKIN: No new gross rash. LYMPHATICS: No peripheral lymphadenopathy. IMPRESSION: 1. End-stage liver disease. 2. Gross ascites. 3. End-stage renal disease. 4. Failure to thrive. PLAN: 1. The patient to undergo hemodialysis today, but due agent to ultrafiltration. 2. The patient seems to have benefitted from the paracentesis. Therefore, we will recommend scheduled outpatient paracentesis on regular basis. 3. Further management to be dependent on the clinical course. Job ID: [id number]
--- NOTE | 2019-10-18 02:46 | DIS ---
DATE OF ADMISSION: 10/15/2019 DATE OF DISCHARGE: 10/16/2019 DISCHARGE ATTENDING: Mickey Sharpe MD. RESIDENT: José Manuel Barton DO. CONSULTATIONS: Nephrology, Dr. Green. PROCEDURES: Paracentesis under ultrasound guidance on 10/15/2019, results 4 L of straw-colored ascitic fluid. IMAGING: Chest x-ray, 10/15/2019. Impression: Stable examination of the chest with stable loculated left-sided pleural effusion. PRIMARY DIAGNOSES: Abdominal distention secondary to a cirrhosis of the liver with ascites, end-stage renal disease, on dialysis. SECONDARY DIAGNOSES: Depression, hypertension, physical deconditioning. DISCHARGE MEDICATIONS: 1. Sertraline 50 mg h.s. 2. Carvedilol 3.125 mg q.a.m. 3. Folic acid 1 mg daily. 4. Vitamin B12 1000 mcg daily. 5. Aspirin 81 mg daily. 6. Eliquis 2.5 mg b.i.d. 7. Potassium chloride 10 mEq p.o. b.i.d. 8. Amiodarone 200 mg daily. 9. Pantoprazole 400 mg daily. HISTORY OF PRESENT ILLNESS AND HOSPITAL COURSE: A 68-year-old female with past medical history of end-stage renal disease on dialysis, and cirrhosis with chronic ascites, presented to the ER with complaint of shortness of breath and abdominal distention. The patient stated that she has been experiencing increased abdominal bloating and shortness of breath over the last week. She was admitted just over a month ago when she had a paracentesis at that time with 6 L removed. Analysis of the fluid at that time was negative for peritonitis and was found to be transudative from the patient's chronic portal hypertension. The patient wears 2 L of oxygen chronically at home. In the emergency department, a paracentesis was performed with 4 L of straw-colored ascitic fluid removed. The patient noted immediate improvement in her shortness of breath. She was then administered 37.5mg of albumin and her blood pressure and vital signs remained stable. Her convenience store manager, Dr. Green, was consulted. He recommended the patient be admitted to the hospital for hemodialysis the following day as due to COVID precautions. Her outpatient dialysis could not be rescheduled. He also felt that the patient having paracentesis the same day would not tolerate that level of fluid shift. Overnight, the patient continued to do well and had light hemodialysis the following day with no acute events. The patient was subsequently discharged and instructed to follow up with her PCP, Dr. Villagomez, regarding scheduling regular paracenteses to prevent this in the future. DISCHARGE INSTRUCTIONS: 1. Location: Home. 2. Diet: Regular and supplemented. 3. Activity: As tolerated. 4. Followup: PCP, Dr. Villagomez within 7 days, Dr. Green, Nephrology as directed. Job ID: [id number] MTDD
== END 2019-10-16 18:40 | disposition home or self-care (01) ==
LOC: ERS 09:39 → 2NO 13:38
PROVIDERS: ADMIT Student in an Organized Health Care Education/Training Program; ATTEND Student in an Organized Health Care Education/Training Program
DX: K74.60 Unspecified cirrhosis of liver (principal); R18.8 Other ascites; I12.0 Hypertensive chronic kidney disease with stage 5 chronic kidney disease or end stage renal disease; N18.6 End stage renal disease; D63.1 Anemia in chronic kidney disease; F32.9 Major depressive disorder, single episode, unspecified; R53.81 Other malaise; K76.6 Portal hypertension; J44.9 Chronic obstructive pulmonary disease, unspecified; R79.89 Other specified abnormal findings of blood chemistry; R06.03 Acute respiratory distress; E46 Unspecified protein-calorie malnutrition; R62.7 Adult failure to thrive; Z68.1 Body mass index [BMI] 19.9 or less, adult; Z79.01 Long term (current) use of anticoagulants; Z79.82 Long term (current) use of aspirin; Z79.899 Other long term (current) drug therapy; Z99.2 Dependence on renal dialysis; Z99.81 Dependence on supplemental oxygen; Z87.891 Personal history of nicotine dependence
CPT/HCPCS: 49083; 71045; 80053 ×2; 82553; 83690; 83880; 84484; 85025 ×2; 85610; 85730; 99285; P9047; 36415; 90935; 96365; G0257; G0378; Q0162

== ENCOUNTER 2019-11-12 19:37 | Emergency (ER) | payer MEDICARE ==
[2019-11-12 20:00] LABS: Analyzer IN Cardio ER; Base Excess (BEa) -7.7 mEq/L (-2.0 to +3.0); CO2 Tension 37.4 mmHg (35.0-45.0); Calcium, Ionized (arterial) 1.15 mmol/L (1.12-1.30); Carboxyhemoglobin (COHb) 0.3 gm% (0.0-3.0); Hemoglobin (Hb) 8.2 g/dL (12.0-16.0); O2 Tension (PaO2), arterial 316.1 mmHg (> 70.0); Potassium - ABG Lab 4.63 mmol/L (3.70-5.30)
--- NOTE | 2019-11-12 20:09 | RAD ---
RADIOGRAPH CHEST 1 VIEW: Supine DATE: 11/12/2019 7:27 PM HISTORY: 69-year-old female in respiratory failure. COMPARISON: 11/12/2019 6:24 PM FINDINGS: Supine positioning makes this study insensitive for the detection of pneumothorax. ETT has been retra cted such that it is no longer at the right mainstem bronchus, but is now 4 cm superior to the bj, at the mid thoracic trachea. New esophageal catheter vertically descending into the medial le ft upper quadrant of abdomen. There continues to be an at least moderate sized left pleural effusion, causing dense total opacification of the left lung, and some pleural fluid or pleural thick ening is present at the left apex. No cardiomegaly. Right IJ double lumen dialysis catheter remains. Defibrillation paddle has moved medially, now centered over the right hilum. Peripheral port ions of right lung are grossly clear. IMPRESSION: 1. Retraction of endotracheal tube from the right mainstem bronchus into appropriate position at mid thoracic trachea. 2. No interval change in the appearance of the lungs, including left pleural effusion.
[2019-11-12 20:26] LABS: Puncture Site FEMORAL
[2019-11-12 20:26] LABS: Anion Gap 20 mmol/L (10-20); BUN (Urea Nitrogen) 28 mg/dL (9.8-20.1); Calc. Creatinine Clearance 0 mL/min (70-130); Calcium 7.8 mg/dL (7.8-10.44); Carbon Dioxide 18 mmol/L (23-31); Chloride 107 mmol/L (98-107); Estimated GFR-MDRD 14; Glucose 134 mg/dL (83-110); Potassium 4.8 mmol/L (3.5-5.1); Sodium 140 mmol/L (136-145)
[2019-11-12] MEDS ORDERED: Norepinephrine 8 MG/0.9% NS 250 ML ONE (20:26)
--- NOTE | 2019-11-12 20:31 | CT ---
CT BRAIN NONCONTRAST: DATE: 11/12/2019 8:16 PM HISTORY: 69-year-old female with altered mental status, unresponsive, status post cardiopulmonary resuscitatio n. FINDINGS: There is no evidence of acute intra-axial or extra-axial hemorrhage. There is no midline shift or any other mass effect. There is no extra-axial fluid collection. There is no evidence of obstructive hydrocephalus. Calvarium is intact. There is diffuse brain parenchymal volume loss. There is fluid, p robably secretions, completely filling the nasopharyngeal airway and extending into the posterior half of the nasal cavity. There are air-fluid levels in the left and right sphenoid air cells. Extrac ranial soft tissues of the head appear to have diffusely low attenuation, questionable for soft tissue edema. IMPRESSION: 1) No acute intracranial findings. 2) involutional changes . 3) extracranial findings as described above.
--- NOTE | 2019-11-12 20:41 | PDOC.FPROB ---
FMR OB H&P: HPI - History of Present Illness Chief Complaint: Coded FMR OB H&P: Medications - Current Home Medications: Medication Instructions Recorded Confirmed Type Sertraline HCl 50 mg PO HS 08/05/18 10/15/19 History Carvedilol 1 tab PO QAM 07/28/19 10/15/19 History Cyanocobalamin (Vitamin B-12) 1,000 mcg PO DAILY 08/02/19 10/15/19 History [B-12] Folic Acid 1 mg PO DAILY 08/02/19 10/15/19 History Apixaban [Eliquis] 2.5 mg PO BID 08/03/19 10/15/19 History Aspirin [Ecotrin Low Strength] 81 mg PO DAILY 08/03/19 10/15/19 History Amiodarone [Cordarone] 200 mg PO DAILY #30 tab 09/23/19 10/15/19 Rx Potassium Chloride [Klor-Con 10] 10 meq PO BID-WM tab 09/23/19 10/15/19 Rx Pantoprazole [Protonix] 40 mg PO DAILY #30 tab 09/25/19 10/15/19 Rx Allergies/Adverse Reactions: Allergies Allergy/AdvReac Type Severity Reaction Status Date / Time No Known Allergies Allergy Verified 10/15/19 15:45 FMR OB H&P: Results - Labs Lab results: Laboratory Results - last 24 hr 11/12/19 11/12/19 11/12/19 19:52 19:52 19:52 Specimen Type Puncture Site Bicarbonate Actual ABG pH ABG pCO2 ABG pO2 ABG O2 Sat (Measured) ABG O2 Content ABG Base Excess ABG Hematocrit ABG Hemoglobin ABG Oxyhemoglobin ABG Carboxyhemoglobin ABG Methemoglobin ABG Deoxyhemoglobin A-a O2 Gradient Ionized Calcium Mode of Support Mechanical Rate Inspired O2 Tidal Volume Pressure Support PEEP or CPAP Sodium 140 Potassium 4.8 Chloride 107 Carbon Dioxide 18 L Anion Gap 20 BUN 28 H Creatinine 3.26 H Estimated GFR (MDRD) 14 Glucose 134 H Lactic Acid 11.4 H* Calcium 7.8 Troponin I 0.043 H 11/12/19 19:54 Specimen Type ARTERIAL Puncture Site FEMORAL Bicarbonate Actual 18.0 L ABG pH 7.30 L ABG pCO2 37.4 ABG pO2 316.1 H ABG O2 Sat (Measured) 99.2 H ABG O2 Content 12.2 L ABG Base Excess -7.7 L ABG Hematocrit 24.0 L ABG Hemoglobin 8.2 L ABG Oxyhemoglobin 98.1 H ABG Carboxyhemoglobin 0.3 ABG Methemoglobin 0.80 ABG Deoxyhemoglobin 0.8 A-a O2 Gradient 350.150 H Ionized Calcium 1.15 Mode of Support SIMV Mechanical Rate 12 Inspired O2 100 Tidal Volume 400 Pressure Support 10 PEEP or CPAP 5.0 Sodium 133 L Potassium 4.63 Chloride 105 Carbon Dioxide Anion Gap BUN Creatinine Estimated GFR (MDRD) Glucose Lactic Acid Calcium Troponin I FMR OB H&P: A/P Discussion: Date/Time: 11/12/192039 This H&P was discussed with [] and [] who agree with the above documentation and plan.
--- NOTE | 2019-11-12 21:26 | PDOC.FPRHP ---
- History of Present Illness Chief Complaint: Coded History of Present Illness: History was obtained by EMS, ED physician, and hospital records due to patient being intubated and sedated. Pt is a 69 yo CF with pmh of ESRD on dialysis, Cirrhosis with liver mass, HTN, arrhythmia with HR issues, and underlying COPD on 2L of O2 at home who presents after coding outside of [facility]. She went to dialysis earlier today for her scheduled dialysis and was found to be hypotensive. They told her that she could not receive dialysis and that she needed to go to the hospital. As they were getting her into her wheelchair from the car at [facility], she coded. They resuscitated her there and were able to get her back and intubate her. They transferred her here and at that time she coded again. She came back in [facility] and was shocked twice. They started her on a levophed drip and called for admission. Patient was intubated but did not have sedation and was not responding to commands or pain. ED Course: She was coded twice shocked twice intubated. - Allergies/Adverse Reactions Allergies Allergy/AdvReac Type Severity Reaction Status Date / Time No Known Allergies Allergy Verified 10/15/19 15:45 - Home Medications Medication Instructions Recorded Confirmed Type Sertraline HCl 50 mg PO HS 08/05/18 10/15/19 History Carvedilol 1 tab PO QAM 07/28/19 10/15/19 History Cyanocobalamin (Vitamin B-12) 1,000 mcg PO DAILY 08/02/19 10/15/19 History [B-12] Folic Acid 1 mg PO DAILY 08/02/19 10/15/19 History Apixaban [Eliquis] 2.5 mg PO BID 08/03/19 10/15/19 History Aspirin [Ecotrin Low Strength] 81 mg PO DAILY 08/03/19 10/15/19 History Amiodarone [Cordarone] 200 mg PO DAILY #30 tab 09/23/19 10/15/19 Rx Potassium Chloride [Klor-Con 10] 10 meq PO BID-WM tab 09/23/19 10/15/19 Rx Pantoprazole [Protonix] 40 mg PO DAILY #30 tab 09/25/19 10/15/19 Rx - History PMHx: Cirrhosis - liver mass, ESRD on hemodialysis, HTN, arrhythmia with HR issues, Likely underlying COPD on 2L of O2 at home PSHx: none FHx: parents had HTN Social: Quit smoking last year, had smoked for 50 years. Denies etoh or drug use. - Review of Systems ROS unobtainable: due to endotracheal tube - Vital signs BP: 76/57 HR: 62 RR: 12 Tmax: 90.5 Pox: 91% on Ventilator Wt: 55 kg - Physical Exam -Constitutional: GCS: 3, unresponsive HEENT: normocephalic and atraumatic -HEENT: No pupillary light reflex Neck: trachea midline -Chest: Bruised from CPR -Heart: Bradycardiac Lungs: CTAB Abdomen: bowel sounds present -Abdomen: Distended Musculoskeletal: normal structure -Neurological: Babinski and Achilles did not show reflex, 1+ reflex radial. No movement to nailbed presssure -Skin: Severe ecchymosis on left arm with several small cuts. Bullous formation on the right arm. -Heme/Lymphatic: Numerous ecchymosis FMR H&P: Results - Labs Result Diagrams: 11/12/19 19:52 Lab results: ABG pH 7.30 (7.35-7.45) L 11/12/19 19:54 ABG pCO2 37.4 mmHg (35.0-45.0) 11/12/19 19:54 ABG pO2 316.1 mmHg (> 70.0) H 11/12/19 19:54 Sodium 140 mmol/L (136-145) 11/12/19 19:52 Potassium 4.8 mmol/L (3.5-5.1) 11/12/19 19:52 Chloride 107 mmol/L (98-107) 11/12/19 19:52 Carbon Dioxide 18 mmol/L (23-31) L 11/12/19 19:52 BUN 28 mg/dL (9.8-20.1) H 11/12/19 19:52 Creatinine 3.26 mg/dL (0.6-1.1) H 11/12/19 19:52 Glucose 134 mg/dL (83-110) H 11/12/19 19:52 Lactic Acid 11.4 mmol/L (0.5-2.2) H* 11/12/19 19:52 Calcium 7.8 mg/dL (7.8-10.44) 11/12/19 19:52 FMR H&P: A/P - Problem List (1) Cirrhosis of liver with ascites Status: Acute Code(s): K74.60 - UNSPECIFIED CIRRHOSIS OF LIVER; R18.8 - OTHER ASCITES (2) ESRD (end stage renal disease) on dialysis Status: Acute Code(s): N18.6 - END STAGE RENAL DISEASE; Z99.2 - DEPENDENCE ON RENAL DIALYSIS (3) Elevated troponin Status: Acute Code(s): R79.89 - OTHER SPECIFIED ABNORMAL FINDINGS OF BLOOD CHEMISTRY (4) Abnormal heart rhythm Status: Acute Code(s): I49.9 - CARDIAC ARRHYTHMIA, UNSPECIFIED (5) Anemia Status: Acute Code(s): D64.9 - ANEMIA, UNSPECIFIED (6) HTN (hypertension) Status: Chronic Code(s): I10 - ESSENTIAL (PRIMARY) HYPERTENSION (7) Acute respiratory failure with hypoxia Status: Acute Code(s): J96.01 - ACUTE RESPIRATORY FAILURE WITH HYPOXIA - Plan Pt is a 69 yo CF with pmh of ESRD on dialysis, Cirrhosis with liver mass, HTN, arrhythmia with HR issues, and underlying COPD on 2L of O2 at home who presents after coding outside of [facility]. Acute hypoxic Respiratory Failure GCS: 3T * Likely brain due to neuro exam * Currently on a Levophed drip to maintain pressures * Intubated Cirrhosis - severe ascites * MELD: 23 (19.6% 3 month mortality) * Child-Krishna: C * Previous admission: Found to have liver mass with elevated CEA, recommended for MRI follow up in 2-5 mo ESRD on dialysis Unable to have dialysis today due to hypotension Elevated Trop Trop: 0.043 > 0.027 * Likely from ESRD and demand HTN Currently hypotensive Hx Arrhythmia Coded and currently bradycardiac Presumptive COPD Pt has extensive smoking history. On 2L of O2 at home. No sign of exacerbation at this time. Anemia of Chronic Dz Hgb: 10.1 Hypothermia T: 90.1 * Currently is wearing bear hugger Dispo: Pt is not doing well currently given that she is on pressors with low blood pressures. She is also unable to maintain temperature. We will attempt to contact family regarding wishes as patient is currently unresponsive. FMR H&P: Upper Level - Pertinent history I went and evaluated patient. unable to obtain HPI as patient was intubated. Pt without sedation. - Pertinent findings Pt intubated without sedation. Pt not withdrawing to pain. GCS3. Pt likely brain at this time. - Plan Date/Time: 11/12/192124 I, Mert Ely, PGY-3 have evaluated this patient and agree with findings/ plan as outlined by finance intern resident. Pertinent changes/additions are listed above. i agree with the above plan. I made above edits as needed. I called patients and discussed events that happened after patient arrived at [place] [facility] and since transferred to [facility]. I discussed pt's poor outlook with him. I discussed likely clinical course and that patient at this time was likely brain . voiced understanding. I discussed the 's wishes going forward. After discussion the decided to withdraw care. He stated he did not want her to undergo anymore testing or treatment with her outlook. He did not want to come up and voiced over the phone that he was okay with withdraw of care. Nursing again called and two nurses in the ER confirmed pt wished to withdraw care. At this time we will proceed with extubation and stopping levophed. Addendum - Attending - Attending Attestation Date/Time: 11/13/19 1018 I personally evaluated the patient and discussed the management with the team. I agree with the History, Examination, Assessment and Plan documented above with any addition or exceptions noted below. Patient intubated, not sedated, not responsive, and hypothermic despite extensive warming. Pupils dilated, nonreactive ETT in place, CTAB RRR s M Abd distended, soft FCIP Very thin extremities, extensive cutaneous bruising, multiple skin avulsions Right PR dialysis catheter Residents had extensive discussion with , along with nurses, who declines to come to hospital but desires withdrawal of care.
[2019-11-12 21:28] LABS: Bacteria/HPF None Seen HPF (None Seen); Bilirubin Negative (Negative); Blood, Urine Negative (Negative); Clarity Turbid (Clear); Glucose, Urine (Dipstick) Normal (Negative); Leukocyte Negative Leu/uL (Negative); Mucous/LPF Rare LPF (<2+); Nitrite Negative (Negative); Protein, Urine (Dipstick) 70 mg/dL (Neg-Trace); Renal Epithelial 0-3 HPF (None Seen); Urobilinogen Normal mg/dL (Less than 2)
[2019-11-12] MEDS ORDERED: Morphine 4 MG/ML VIAL ONE (21:53)
--- NOTE | 2019-11-13 01:40 | DIS ---
DATE OF ADMISSION: 11/12/2019 DATE OF DISCHARGE: 11/12/2019 SUMMARY: ATTENDING: Facundo Rosa MD RESIDENT: Radu Carrasco MD DATE OF : 11/12/2019. TIME OF : 2224 hours. CAUSE OF : 1. Decompensated cirrhosis. 2. End-stage renal disease on dialysis. SECONDARY DIAGNOSES: 1. Hypertension 2. History of arrhythmia 3. Presumptive chronic obstructive pulmonary disease 2/2 to tobacco abuse. 4. Anemia of chronic disease. HOSPITAL COURSE: The patient is a 69-year-old female with past medical history of end- stage renal disease, cirrhosis with liver mass, hypertension, arrhythmia, and presumptive COPD 2/2 Tobacco Abuse, who required 2 L of O2 at home, who presented after coding at [facility]. She went to dialysis earlier today and was found to be hypotensive. They recommended she go to the ER. When she was trying to transport from the car to the wheelchair to be seen in the ER, she coded. They were able to resuscitate her at [facility] and sent her over after being resuscitated and intubated to [facility]. She once again coded and upon resuscitation, had episodes of ventricular tachycardia and required shocking twice. They started her on a Levophed drip due to low blood pressures and put her under bear hugger since she could not maintain temperatures on her own. She was assessed and found to have a GCS of 3T. Reflexes were 1+ in radial, 0 in Achilles and Babinski. Her pupils were blown. They would not accommodate to light and she was unresponsive to nailbed pressure. The was called regarding these findings and informed that she was on medication to maintain her blood pressure and a ventilator to help her breathe. We discussed what this would mean and that further testing which could be done. The declined any further testing and requested that she be terminally extubated. DNR consent was obtained over the phone by two nurses. The patient was terminally extubated and comfort measures were put in place and morphine was given for comfort. She passed at 2224 hours. PHYSCIAL EXAMINATION: HEENT: Pupils were fixed and dilated. CARDIOVASCULAR: No pulse. No auscultated heart sounds. RESPIRATORY: No spontaneous respirations. NEURO: No withdrawal to painful stimuli. Time of , 11/12/2019 at 2224 hours. Job ID: [id number] [facility]
--- NOTE | 2019-11-14 13:01 | PRG ---
DATE OF SERVICE: 11/12/2019 This is a 69-year-old female patient with end-stage renal disease, on hemodialysis, who presented yesterday on dialysis and was found to be hypotensive. The patient initially presented with a blood pressure in the 70s and subsequently the blood pressure behzad to 90 something; however, the patient seems to be very weak and decision not to dialyze with advice for patient to present to the hospital. On presentation to the hospital, the patient was noted to have coded necessitating intubation and transferred to the hospital here. During the labile hemodynamics of this patient, who was on pressors, decision was taken not to dialyze the patient as the patient could not handle dialysis. Subsequently the patient coded again and subsequently on the day of presentation. Job ID: [id number]
== END 2019-11-12 22:24 | disposition expired ==
LOC: ERS 19:37
DX: I46.9 Cardiac arrest, cause unspecified (principal); I12.0 Hypertensive chronic kidney disease with stage 5 chronic kidney disease or end stage renal disease; N18.6 End stage renal disease; J90 Pleural effusion, not elsewhere classified; I48.91 Unspecified atrial fibrillation; Z87.891 Personal history of nicotine dependence; Z99.2 Dependence on renal dialysis; Z79.01 Long term (current) use of anticoagulants; Z79.82 Long term (current) use of aspirin; Z79.899 Other long term (current) drug therapy
CPT/HCPCS: 36416; 51702; 70450; 71045; 81003; 81015; 82805; 83605; 93005; 94002; 96365; 96366; 96375; J2270